=== PATIENT | female | born 1945 | race Caucasian/White ===

== ENCOUNTER 2019-07-05 16:45 | Outpatient (CLI) | payer MEDICARE, SELFPAY ==
[2019-07-05 17:43] LABS: Basophils Percent Auto 0.4 % (0.2-1.2); Eosinophils Absolute Auto 0.3 K/mm3 (0-0.3); Eosinophils Percent Auto 3.1 % (0-4.4); Hematocrit 40.8 % (37.0-47.0); Immature Granulocyte Absolute 0.03 K/mm3 (0.00-0.031); Immature Granulocyte Percent A 0.3 % (0-0.5); Lymphocytes Absolute Auto 2.66 K/mm3 (0.9-3.2); Lymphocytes Percent Auto 27.6 % (18.3-44.2); Mean Corpuscular HGB Conc 34.3 g/dl (32-36); Mean Corpuscular Hemoglobin 29.7 pg (26-34); Mean Corpuscular Volume 86.4 fl (80-100); Mean Platelet Volume 9.3 fl (7.4-10.4); Monocytes Absolute Auto 0.5 K/mm3 (0.1-0.6); Monocytes Percent Auto 5.5 % (2.6-8.5); Neutrophils Absolute Auto 6.1 K/mm3 (1.3-6.7); Neutrophils Percent Auto 63.1 % (45.5-73.1); Platelet Count Result 289 k/mm3 (150-375); Red Blood Count 4.72 M/mm3 (4.2-5.4); Red Cell Distribution Width 12.9 % (11.5-14.5); White Blood Count 9.6 K/mm3 (4.5-10.0)
[2019-07-05 17:52] LABS: Hemoglobin A1C 6.7 % (<5.7)
[2019-07-05 17:56] LABS: Alanine Aminotransferase 39 U/L (4-35); Albumin Level 4.6 g/dL (3.5-5.1); Alkaline Phosphatase 59 U/L (38-126); Aspartate Amino Transferase 46 U/L (14-36); Bilirubin,Total 0.7 mg/dL (0.2-1.3); Blood Urea Nitrogen 10 mg/dL (7-17); Calcium 9.8 mg/dL (8.4-10.2); Carbon Dioxide 26 mmol/L (22-30); Chloride 97 mmol/L (98-107); Estimated Glomerular Filt Rate > 60; Glucose 128 mg/dL (65-105); Potassium 3.9 mmol/L (3.4-5.0); Sodium 141 mmol/L (137-145)
== END 2019-07-05 16:46 | disposition home or self-care (01) ==
LOC: ANHLAB 16:49
PROVIDERS: PCP Internal Medicine; Visit Provider Internal Medicine
DX: E11.65 Type 2 diabetes mellitus with hyperglycemia (principal)
CPT/HCPCS: 36415; 80053; 83036; 85025

== ENCOUNTER 2019-12-13 14:03 | Outpatient (CLI) | payer MEDICARE, SELFPAY ==
[2019-12-13 15:28] LABS: Basophils Percent Auto 0.3 % (0.2-1.2); Eosinophils Absolute Auto 0.3 K/mm3 (0-0.3); Eosinophils Percent Auto 3.1 % (0-4.4); Hematocrit 39.9 % (37.0-47.0); Hemoglobin 13.6 g/dL (12.0-15.0); Immature Granulocyte Absolute 0.04 K/mm3 (0.00-0.031); Immature Granulocyte Percent A 0.4 % (0-0.5); Lymphocytes Absolute Auto 2.84 K/mm3 (0.9-3.2); Lymphocytes Percent Auto 28.1 % (18.3-44.2); Mean Corpuscular HGB Conc 34.1 g/dl (32-36); Mean Corpuscular Hemoglobin 29.8 pg (26-34); Mean Corpuscular Volume 87.5 fl (80-100); Mean Platelet Volume 9.2 fl (7.4-10.4); Monocytes Absolute Auto 0.6 K/mm3 (0.1-0.6); Neutrophils Absolute Auto 6.3 K/mm3 (1.3-6.7); Neutrophils Percent Auto 62.1 % (45.5-73.1); Platelet Count Result 303 k/mm3 (150-375); Red Blood Count 4.56 M/mm3 (4.2-5.4); Red Cell Distribution Width 12.8 % (11.5-14.5); White Blood Count 10.1 K/mm3 (4.5-10.0)
[2019-12-13 15:34] LABS: Alanine Aminotransferase 59 U/L (4-35); Albumin Level 4.5 g/dL (3.5-5.1); Alkaline Phosphatase 63 U/L (38-126); Anion Gap 12 mmol/L (8-16); Aspartate Amino Transferase 88 U/L (14-36); Bilirubin,Total 0.8 mg/dL (0.2-1.3); Blood Urea Nitrogen 9 mg/dL (7-17); Carbon Dioxide 25 mmol/L (22-30); Chloride 100 mmol/L (98-107); Cholesterol 103 mg/dL (0-200); Estimated Glomerular Filt Rate > 60; Glucose 146 mg/dL (65-105); HDL Direct 29 mg/dL; Potassium 3.9 mmol/L (3.4-5.0); Sodium 137 mmol/L (137-145); Triglycerides 138 mg/dL (<150)
[2019-12-13 15:45] LABS: LDL Cholesterol Direct 54 mg/dL
[2019-12-13 15:47] LABS: Hemoglobin A1C 6.5 % (<5.7)
[2019-12-13 16:05] LABS: Creatinine Urine 210.6 mg/dL
[2019-12-13 16:10] LABS: MALB Creatinine Ratio 13.2 mg/g (0-30); Microalbumin Urine Random 27.9 mg/L (0-16.7)
== END 2019-12-13 14:04 | disposition home or self-care (01) ==
PROVIDERS: PCP Internal Medicine; Visit Provider Internal Medicine
DX: E11.29 Type 2 diabetes mellitus with other diabetic kidney complication (principal); K76.0 Fatty (change of) liver, not elsewhere classified; I10 Essential (primary) hypertension
CPT/HCPCS: 36415; 80053; 80061; 82043; 83036; 84443; 85025

== ENCOUNTER 2020-01-18 12:23 | Outpatient (CLI) | payer MEDICARE, SELFPAY ==
--- NOTE | ~2020-01-18 | US_ITS ---
US abdomen complete EXAMINATION: US Abdomen Complete INDICATION: Fatty liver PROCEDURE: Realtime High Resolution abdomen ultrasound. COMPARISON: No prior studies for comparison FINDINGS: Gallbladder is surgically absent. Common bile duct measures 6 mm. Liver echotexture is increased, consistent with fatty infiltration.. Pancreas within normal limits. Pancreatic tail is obscured by bowel gas. Spleen is unremarkeable. Renal echotexture is within norm al limits bilaterally without hydronephrosis, contour deforming mass or renal stone. Right kidney tiera sures 13.1 cm. Left kidney measures 12.6 cm. Visualized aspects of the aorta and IVC are within normal limits. Portal vein is patent. No sonograph ic Grant's sign indicated by the technologist. IMPRESSION: 1: Hepatic steatosis. Reviewed, dictated and finalized at location B. IMPRESSION: 1: Hepatic steatosis.
== END 2020-01-18 12:24 | disposition home or self-care (01) ==
PROVIDERS: PCP Internal Medicine; Visit Provider Internal Medicine
DX: K76.0 Fatty (change of) liver, not elsewhere classified (principal)
CPT/HCPCS: 76700

== ENCOUNTER 2020-02-19 10:46 | Outpatient (CLI) | payer MEDICARE, SELFPAY ==
--- NOTE | ~2020-02-19 | MM_ITS ---
EXAMINATION: MM screening [facility] BI w malcolm HISTORY: Screening mammogram TECHNIQUE: Craniocaudal and mediolateral oblique 3-D tomosynthesis images were obtained and synthetic 2-D images were generated. CAD analysis was submitted and interpreted. COMPARISON: 01/19/2019, 01/07/2018, 12/04/2015 bilateral digital screening mammogram examinations diagnostic left digital mammogram 01/14/2018 diagnostic right digital mammogram BREAST PARENCHYMAL COMPOSITION: There are scattered areas of fibroglandular density. FINDINGS: There is a biopsy marker on the left; history of prior benign left breast biopsy. There are scattered bilateral benign calcifications. There is no evidence of suspicious mass, calcifi cation, or architectural distortion to suggest malignancy in either breast. There has been no suspici ous interval change. IMPRESSION: 1. No mammographic evidence of malignancy. 2. Recommend routine screening mammography in one year. BI-RADS Category 2: Benign finding(s). Reviewed, dictated and finalized at location A.
--- NOTE | ~2020-02-19 | DEXA_ITS ---
Bone Density Report Name: Melissa Ricci Age: 74 Sex: Female Ethnicity: White Date of : 1945 Indication: postmenopausal; height loss; prior fracture; hysterectomy; Referring Provider: Patt Scales Study: Bone densitometry was performed. Exam Date: February 19, 2020 Accession number: [id number] Bone Density: Region BMD T-score Z-score Classification AP Spine (L1, L4) 1.298 2.4 4.7 Normal Femoral Neck (Left) 0.938 0.8 2.8 Normal Total Hip (Left) 1.017 0.6 2.3 Normal Total Hip Bilateral Avg 1.073 1.1 2.8 Normal Femoral Neck (Right) 0.931 0.7 2.7 Normal Total Hip (Right) 1.128 1.5 3.2 Normal World Health Organization criteria for BMD impression classify patients as: Normal (T-score at or above -1.0), Osteopenia (T-score between -1.0 and -2.5), or Osteoporosis (T-score at or below -2.5). 10-year Fracture Risk: FRAX not reported because: All T-scores for Spine Total, Hip Total, Femoral Neck at or above -1.0 Previous Exams: Region Exam Age BMD T-score BMD Change BMD Change Date g/cm2 vs Baseline vs Previous Total Hip(Left) 02/19/2020 74 1.017 0.6 -0.107(-9.5%)* -0.107(-9.5%)* 04/21/2014 68 1.123 1.5 Total Hip(Right) 02/19/2020 74 1.128 1.5 -0.003(-0.3%) -0.003(-0.3%) 04/21/2014 68 1.131 1.6 *Denotes significance at 95% confidence level, LSC for Total Hip = 0.027 g/cm2 Clinical Information Provided by Patient: Has had a low trauma fracture Has used the following medications: Vitamin D, Calcium Has the following medical conditions: Hysterectomy Patient maximum height was 62 Menopause Age: 45 No regular weight bearing exercise Drinks caffeinated beverages Onset of menses at age 12 Number of children 3 Impression: The patient has normal bone mass. The patient has risk factors, including: previous fracture. The BMD for the Total Hip(Left) decreased, changing by -9.5% since the last DXA exam. Discussion: LOW RISK OF FRACTURE; BONE DENSITY IS WELL ABOVE THE MINIMUM DESIRABLE LEVEL AND ABOVE AVERAGE FOR AGE AND SEX AT ALL SKELETAL SITES TESTED. This person's bone density is above expected limits for age and sex. This is rarely clinically significant, but should be pursued if there are significant musculoskeletal complaints. The patient should follow a healthful lifestyle (good nutrition with adequate calcium and vitamin D, and appropriate weight-bearing exercise). Follow-Up: Consider repeating this study in 3 to 4 years to reassess this patient's status, or sooner
== END 2020-02-19 10:47 | disposition home or self-care (01) ==
LOC: ANHIMG 10:50
PROVIDERS: PCP Internal Medicine; Visit Provider Advanced Practice Midwife
DX: Z12.31 Encounter for screening mammogram for malignant neoplasm of breast (principal); Z13.820 Encounter for screening for osteoporosis; Z78.0 Asymptomatic menopausal state
CPT/HCPCS: 77063; 77067; 77080

== ENCOUNTER 2020-04-11 12:59 | Outpatient (CLI) | payer MEDICARE, SELFPAY ==
[2020-04-11 13:33] LABS: Hemoglobin A1C 7.1 % (<5.7)
[2020-04-11 13:42] LABS: Alanine Aminotransferase 61 U/L (4-35); Albumin Level 3.9 g/dL (3.5-5.1); Alkaline Phosphatase 56 U/L (38-126); Anion Gap 8 mmol/L (8-16); Aspartate Amino Transferase 72 U/L (14-36); Bilirubin,Total 0.8 mg/dL (0.2-1.3); Blood Urea Nitrogen 9 mg/dL (7-17); Calcium 9.4 mg/dL (8.4-10.2); Carbon Dioxide 30 mmol/L (22-30); Chloride 101 mmol/L (98-107); Estimated Glomerular Filt Rate > 60; Glucose 161 mg/dL (65-105); Potassium 4.1 mmol/L (3.4-5.0); Sodium 139 mmol/L (137-145)
[2020-04-11 14:08] LABS: MALB Creatinine Ratio < 8.3 mg/g (0-30); Microalbumin Urine Random < 6.0 mg/L (0-16.7)
== END 2020-04-11 13:00 | disposition home or self-care (01) ==
PROVIDERS: PCP Internal Medicine; Visit Provider Internal Medicine
DX: E11.65 Type 2 diabetes mellitus with hyperglycemia (principal); E79.0 Hyperuricemia without signs of inflammatory arthritis and tophaceous disease; I10 Essential (primary) hypertension
CPT/HCPCS: 36415; 80053; 82043; 83036; 84550

== ENCOUNTER 2020-10-11 15:01 | Outpatient (CLI) | payer MEDICARE, SELFPAY ==
[2020-10-11 15:22] LABS: Basophils Percent Auto 0.5 % (0.2-1.2); Eosinophils Absolute Auto 0.5 K/mm3 (0-0.3); Eosinophils Percent Auto 6.1 % (0-4.4); Hematocrit 39.5 % (37.0-47.0); Hemoglobin 13.1 g/dL (12.0-15.0); Immature Granulocyte Absolute 0.03 K/mm3 (0.00-0.031); Immature Granulocyte Percent A 0.3 % (0-0.5); Lymphocytes Absolute Auto 2.17 K/mm3 (0.9-3.2); Lymphocytes Percent Auto 24.5 % (18.3-44.2); Mean Corpuscular HGB Conc 33.2 g/dl (32-36); Mean Corpuscular Hemoglobin 29.8 pg (26-34); Mean Corpuscular Volume 89.8 fl (80-100); Monocytes Absolute Auto 0.4 K/mm3 (0.1-0.6); Monocytes Percent Auto 4.9 % (2.6-8.5); Neutrophils Absolute Auto 5.7 K/mm3 (1.3-6.7); Neutrophils Percent Auto 63.7 % (45.5-73.1); Platelet Count Result 216 k/mm3 (150-375); White Blood Count 8.9 K/mm3 (4.5-10.0)
[2020-10-11 15:34] LABS: Alanine Aminotransferase 53 U/L (4-35); Albumin Level 4.1 g/dL (3.5-5.1); Alkaline Phosphatase 58 U/L (38-126); Anion Gap 13 mmol/L (8-16); Aspartate Amino Transferase 89 U/L (14-36); Bilirubin,Total 0.7 mg/dL (0.2-1.3); Blood Urea Nitrogen 10 mg/dL (7-17); Calcium 9.5 mg/dL (8.4-10.2); Carbon Dioxide 23 mmol/L (22-30); Chloride 104 mmol/L (98-107); Cholesterol 161 mg/dL (0-200); Estimated Glomerular Filt Rate > 60; Glucose 136 mg/dL (65-105); HDL Direct 34 mg/dL; Hemoglobin A1C 6.6 % (<5.7); Potassium 4.3 mmol/L (3.4-5.0); Sodium 140 mmol/L (137-145); Triglycerides 168 mg/dL (<150)
[2020-10-11 15:45] LABS: LDL Cholesterol Direct 79 mg/dL
[2020-10-11 16:39] LABS: Creatinine Urine 121.7 mg/dL
[2020-10-11 16:54] LABS: Vitamin D 25 Hydroxy 38.4 ng/mL
== END 2020-10-11 15:02 | disposition home or self-care (01) ==
PROVIDERS: PCP Internal Medicine; Visit Provider Internal Medicine
DX: E11.65 Type 2 diabetes mellitus with hyperglycemia (principal); E55.9 Vitamin D deficiency, unspecified; E78.2 Mixed hyperlipidemia; F31.4 Bipolar disorder, current episode depressed, severe, without psychotic features; I10 Essential (primary) hypertension
CPT/HCPCS: 36415; 80053; 80061; 82043; 82306; 83036; 84443; 85025

== ENCOUNTER 2020-11-23 13:59 | Outpatient (CLI) | payer MEDICARE, SELFPAY | END 2020-11-23 14:00 | disposition home or self-care (01) | LOC: ANHAUDIO 14:01 | PROVIDERS: PCP Internal Medicine; Visit Provider Otolaryngology | DX: H61.23 Impacted cerumen, bilateral (principal); H90.3 Sensorineural hearing loss, bilateral | CPT/HCPCS: 92557; 92567 ==

== ENCOUNTER 2021-02-19 14:54 | Outpatient (CLI) | payer MEDICARE, SELFPAY ==
--- NOTE | ~2021-02-19 | MM_ITS ---
EXAMINATION: MM screening [facility] BI w malcolm HISTORY: Screening mammogram TECHNIQUE: Craniocaudal and mediolateral oblique 3-D tomosynthesis images were obtained and synthetic 2-D images were generated. CAD analysis was submitted and interpreted. COMPARISON: 02/19/2020 bilateral digital screening mammogram 01/29/2019 diagnostic left digital mammogram 01/19/2019 bilateral digital screening mammogram BREAST PARENCHYMAL COMPOSITION: There are scattered areas of fibroglandular density. FINDINGS: There are scattered bilateral benign calcifications. There is no evidence of suspicious mas s, calcification, or architectural distortion to suggest malignancy in either breast. There has been no suspicious interval change. IMPRESSION: 1. No mammographic evidence of malignancy. 2. Recommend routine screening mammography in one year. BI-RADS Category 2: Benign finding(s). Reviewed, dictated and finalized at location A.
== END 2021-02-19 14:55 | disposition home or self-care (01) ==
PROVIDERS: PCP Internal Medicine; Visit Provider Internal Medicine
DX: Z12.31 Encounter for screening mammogram for malignant neoplasm of breast (principal)
CPT/HCPCS: 77063; 77067

== ENCOUNTER 2021-04-12 14:02 | Outpatient (CLI) | payer MEDICARE, SELFPAY ==
[2021-04-12 14:51] LABS: Alanine Aminotransferase 53 U/L (4-35); Albumin Level 4.3 g/dL (3.5-5.1); Alkaline Phosphatase 60 U/L (38-126); Anion Gap 12 mmol/L (8-16); Aspartate Amino Transferase 67 U/L (14-36); Bilirubin,Total 0.7 mg/dL (0.2-1.3); Blood Urea Nitrogen 11 mg/dL (7-17); Calcium 9.5 mg/dL (8.4-10.2); Carbon Dioxide 24 mmol/L (22-30); Chloride 100 mmol/L (98-107); Estimated Glomerular Filt Rate > 60; Glucose 166 mg/dL (65-110); Potassium 4.1 mmol/L (3.4-5.0); Sodium 136 mmol/L (137-145)
[2021-04-12 16:34] LABS: Hemoglobin A1C 6.9 % (<5.7)
[2021-04-12 16:48] LABS: Creatinine Urine 256.6 mg/dL
[2021-04-12 16:52] LABS: Microalbumin Urine Random 33.3 mg/L (0-16.7)
== END 2021-04-12 14:03 | disposition home or self-care (01) ==
LOC: ANHLAB 14:04
PROVIDERS: PCP Internal Medicine; Visit Provider Internal Medicine
DX: E11.65 Type 2 diabetes mellitus with hyperglycemia (principal); K76.0 Fatty (change of) liver, not elsewhere classified
CPT/HCPCS: 36415; 80053; 82043; 83036

== ENCOUNTER 2021-10-26 15:32 | Outpatient (CLI) | payer MEDICARE, SELFPAY ==
[2021-10-26 16:32] LABS: Alanine Aminotransferase 49 U/L (6-35); Albumin Level 4.2 g/dL (3.5-5.1); Alkaline Phosphatase 70 U/L (38-126); Anion Gap 10 mmol/L (8-16); Aspartate Amino Transferase 59 U/L (14-36); Bilirubin,Total 0.9 mg/dL (0.2-1.3); Blood Urea Nitrogen 10 mg/dL (7-17); Calcium 8.9 mg/dL (8.4-10.2); Carbon Dioxide 24 mmol/L (22-30); Chloride 104 mmol/L (98-107); Cholesterol 88 mg/dL (0-200); Estimated Glomerular Filt Rate > 60; Glucose 234 mg/dL (65-110); HDL Direct 31 mg/dL; Potassium 3.8 mmol/L (3.4-5.0); Sodium 138 mmol/L (137-145); Triglycerides 153 mg/dL (<150)
[2021-10-26 16:42] LABS: LDL Cholesterol Direct 34 mg/dL
[2021-10-26 16:48] LABS: Creatinine Urine 169.6 mg/dL; MALB Creatinine Ratio 27.1 mg/g (0-30)
[2021-10-26 17:07] LABS: Free T4 Free Thyroxine 1.22 ng/mL (0.78-2.19)
== END 2021-10-26 15:33 | disposition home or self-care (01) ==
PROVIDERS: PCP Internal Medicine; Visit Provider Nurse Practitioner Family
DX: E11.65 Type 2 diabetes mellitus with hyperglycemia (principal); I10 Essential (primary) hypertension; E55.9 Vitamin D deficiency, unspecified; R80.1 Persistent proteinuria, unspecified
CPT/HCPCS: 36415; 80053; 80061; 82043; 82607; 84439; 84443

== ENCOUNTER 2021-11-03 12:51 | Outpatient (CLI) | payer MEDICARE, SELFPAY ==
[2021-11-03 13:15] LABS: Basophils Percent Auto 0.4 % (0.2-1.2); Eosinophils Absolute Auto 0.5 K/mm3 (0-0.3); Eosinophils Percent Auto 5.1 % (0-4.4); Hematocrit 39.9 % (37.0-47.0); Hemoglobin 13.4 g/dL (12.0-15.0); Immature Granulocyte Absolute 0.03 K/mm3 (0.00-0.031); Immature Granulocyte Percent A 0.3 % (0-0.5); Lymphocytes Absolute Auto 2.75 K/mm3 (0.9-3.2); Lymphocytes Percent Auto 28.9 % (18.3-44.2); Mean Corpuscular HGB Conc 33.6 g/dl (32-36); Mean Corpuscular Volume 89.3 fl (80-100); Mean Platelet Volume 9.3 fl (7.4-10.4); Monocytes Absolute Auto 0.7 K/mm3 (0.1-0.6); Monocytes Percent Auto 6.9 % (2.6-8.5); Neutrophils Absolute Auto 5.6 K/mm3 (1.3-6.7); Neutrophils Percent Auto 58.4 % (45.5-73.1); Platelet Count Result 234 k/mm3 (150-375); Red Blood Count 4.47 M/mm3 (4.2-5.4); Red Cell Distribution Width 12.9 % (11.5-14.5); White Blood Count 9.5 K/mm3 (4.5-10.0)
== END 2021-11-03 12:52 | disposition home or self-care (01) ==
PROVIDERS: PCP Internal Medicine; Visit Provider Nurse Practitioner
DX: E53.8 Deficiency of other specified B group vitamins (principal)
CPT/HCPCS: 36415; 85025

== ENCOUNTER 2022-03-22 11:02 | Outpatient (CLI) | payer MEDICARE, SELFPAY ==
--- NOTE | ~2022-03-22 | MM_ITS ---
EXAMINATION: MM screening [facility] BI w malcolm HISTORY: Screening TECHNIQUE: Craniocaudal and mediolateral oblique 3-D tomosynthesis images were obtained and synthetic 2-D images were generated. CAD analysis was submitted and interpreted. COMPARISON: Comparison to multiple prior studies sequentially, with oldest reviewed study dated 09/2017. BREAST PARENCHYMAL COMPOSITION: Breast composed of scattered areas of fibroglandular density FINDINGS: There are benign bilateral breast calcifications. There is no evidence of suspicious mass, calcification, or architectural distortion to suggest malignancy in either breast. There has been no suspicious interval change. IMPRESSION: 1. No mammographic evidence of malignancy. 2. Recommend routine screening mammography in one year. BI-RADS Category 2: Benign finding(s). Reviewed, dictated and finalized at location A. 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
== END 2022-03-22 11:03 | disposition home or self-care (01) ==
PROVIDERS: PCP Internal Medicine; Visit Provider Advanced Practice Midwife
DX: Z12.31 Encounter for screening mammogram for malignant neoplasm of breast (principal)
CPT/HCPCS: 77063; 77067

== ENCOUNTER 2022-11-18 14:29 | Outpatient (CLI) | payer MEDICARE, SELFPAY ==
[2022-11-18 16:26] LABS: Creatinine Urine 111.4 mg/dL
[2022-11-18 16:31] LABS: MALB Creatinine Ratio 20.1 mg/g (0-30); Microalbumin Urine Random 22.4 mg/L (0-16.7)
[2022-11-18 16:50] LABS: Free T4 Free Thyroxine 1.39 ng/mL (0.78-2.19); Vitamin D 25 Hydroxy 79.1 ng/mL
[2022-11-18 18:16] LABS: Alanine Aminotransferase 55 U/L (6-35); Albumin Level 4.5 g/dL (3.5-5.1); Alkaline Phosphatase 58 U/L (38-126); Anion Gap 12 mmol/L (8-16); Aspartate Amino Transferase 65 U/L (14-36); Blood Urea Nitrogen 9 mg/dL (7-17); Calcium 9.2 mg/dL (8.4-10.2); Carbon Dioxide 24 mmol/L (22-30); Chloride 103 mmol/L (98-107); Estimated Glomerular Filt Rate > 60; Glucose 187 mg/dL (65-110); HDL Direct 30 mg/dL; Sodium 139 mmol/L (137-145); Triglycerides 142 mg/dL (<150)
[2022-11-18 18:27] LABS: LDL Cholesterol Direct 37 mg/dL
[2022-11-18 18:35] LABS: Cholesterol 91 mg/dL (0-200)
== END 2022-11-18 14:30 | disposition home or self-care (01) ==
PROVIDERS: PCP Family Medicine; Visit Provider Nurse Practitioner Family
DX: E11.9 Type 2 diabetes mellitus without complications (principal); E53.8 Deficiency of other specified B group vitamins; E55.9 Vitamin D deficiency, unspecified; E78.5 Hyperlipidemia, unspecified; G47.33 Obstructive sleep apnea (adult) (pediatric)
CPT/HCPCS: 36415; 80053; 80061; 82043; 82306; 82607; 84439; 84443

== ENCOUNTER 2023-02-24 08:03 | Outpatient (CLI) | payer MEDICARE, SELFPAY ==
--- NOTE | 2023-02-24 10:46 | WPDPFTINT ---
PFT Procedure Performed PFT Procedure Performed Spirometry with Pre/Post Bronchodilator Plethysmography (Lung Vol) Diffusing Cap (DLCO) Flow Vol Loop PFT Interpretation Lung volumes were measured with the body plethysmography method. The diminished expiratory reserve volume is related to obesity. The remaining lung volumes are unremarkable. Spirometry showed diminished expiratory flow rates and a normal FEV1 to FVC ratio 71%. Following administration of a bronchodilator there was significant increase in the FEV1. Lung diffusion capacity is within the normal range at 81% predicted. The flow-volume loop is consistent with obstructive airway disease. In comparison to previous study done in 2017 the post bronchodilator FEV1 is lower by approximately 0.3 L and the FVC is also lower by approximately 0.4 L. lung diffusion capacity is essentially unchanged. Impression: Nonspecific pattern. Significant response to bronchodilators may be due to underlying obstructive airway disease. Clinical correlation advised.
== END 2023-02-24 08:04 | disposition home or self-care (01) ==
LOC: ANHPFT 08:04
PROVIDERS: PCP Nurse Practitioner; Visit Provider Physician Assistant
DX: J44.9 Chronic obstructive pulmonary disease, unspecified (principal)
CPT/HCPCS: 94060; 94726; 94729

== ENCOUNTER 2023-06-12 15:46 | Outpatient (CLI) | payer MEDICARE, SELFPAY ==
[2023-06-12 16:06] LABS: Hematocrit 43.8 % (37.0-47.0); Hemoglobin 14.6 g/dL (12.0-15.0); Mean Corpuscular HGB Conc 33.3 g/dl (32-36); Mean Corpuscular Hemoglobin 29.9 pg (26-34); Mean Corpuscular Volume 89.6 fl (80-100); Mean Platelet Volume 9.9 fl (7.4-10.4); Platelet Count Result 272 k/mm3 (150-375); Red Blood Count 4.89 M/mm3 (4.2-5.4); Red Cell Distribution Width 13.1 % (11.5-14.5); White Blood Count 9.4 K/mm3 (4.5-10.0)
[2023-06-12 16:23] LABS: Alanine Aminotransferase 42 U/L (6-35); Albumin Level 4.4 g/dL (3.5-5.1); Alkaline Phosphatase 64 U/L (38-126); Anion Gap 13 mmol/L (8-16); Aspartate Amino Transferase 46 U/L (14-36); Bilirubin,Total 0.9 mg/dL (0.2-1.3); Blood Urea Nitrogen 15 mg/dL (7-17); Calcium 9.9 mg/dL (8.4-10.2); Carbon Dioxide 22 mmol/L (22-30); Chloride 105 mmol/L (98-107); Cholesterol 101 mg/dL (0-200); Estimated Glomerular Filt Rate > 60; Glucose 179 mg/dL (65-110); HDL Direct 32 mg/dL; Potassium 4.4 mmol/L (3.4-5.0); Sodium 140 mmol/L (137-145); Triglycerides 210 mg/dL (<150)
[2023-06-12 16:29] LABS: LDL Cholesterol Direct 47 mg/dL
== END 2023-06-12 15:47 | disposition home or self-care (01) ==
LOC: ANHLAB 15:48
PROVIDERS: PCP Family Medicine; Visit Provider Nurse Practitioner
DX: E78.5 Hyperlipidemia, unspecified (principal); E11.29 Type 2 diabetes mellitus with other diabetic kidney complication; E53.8 Deficiency of other specified B group vitamins
CPT/HCPCS: 36415; 80053; 80061; 85027

== ENCOUNTER 2023-07-23 15:26 | Outpatient (CLI) | payer MEDICARE, SELFPAY ==
--- NOTE | ~2023-07-23 | MM_ITS ---
EXAMINATION: MM screening [facility] BI w malcolm HISTORY: Screening TECHNIQUE: Craniocaudal and mediolateral oblique 3-D tomosynthesis images were obtained and synthetic 2-D images were generated. CAD analysis was submitted and interpreted. COMPARISON: Comparison to multiple prior studies sequentially, with oldest reviewed study dated 01/19. BREAST PARENCHYMAL COMPOSITION: Not dense: There are scattered areas of fibroglandular density. FINDINGS: There is no evidence of suspicious mass, calcification, or architectural distortion to sugg est malignancy in either breast. There has been no suspicious interval change. IMPRESSION: 1. No mammographic evidence of malignancy. 2. Recommend routine screening mammography in one year. BI-RADS Category 1: Negative Reviewed, dictated and finalized at location A.
== END 2023-07-23 15:27 | disposition home or self-care (01) ==
LOC: ANHIMG 15:29
PROVIDERS: PCP Family Medicine; Visit Provider Family Medicine
DX: Z12.31 Encounter for screening mammogram for malignant neoplasm of breast (principal)
CPT/HCPCS: 77063; 77067

== ENCOUNTER 2023-12-17 14:33 | Outpatient (CLI) | payer MEDICARE, SELFPAY ==
[2023-12-17 15:36] LABS: Alanine Aminotransferase 42 U/L (6-35); Albumin Level 4.5 g/dL (3.5-5.1); Alkaline Phosphatase 57 U/L (38-126); Anion Gap 17 mmol/L (4-12); Aspartate Amino Transferase 64 U/L (14-36); Bilirubin,Total 1.1 mg/dL (0.2-1.3); Blood Urea Nitrogen 10 mg/dL (7-17); Calcium 9.4 mg/dL (8.4-10.2); Carbon Dioxide 21 mmol/L (22-30); Chloride 100 mmol/L (98-107); Cholesterol 86 mg/dL (0-200); Estimated Glomerular Filt Rate > 60; Glucose 152 mg/dL (65-110); HDL Direct 34 mg/dL; Potassium 3.4 mmol/L (3.4-5.0); Sodium 138 mmol/L (137-145); Triglycerides 175 mg/dL (<150)
[2023-12-17 15:53] LABS: Microalbumin Urine Random 7.5 mg/L (0-16.7)
[2023-12-17 15:53] LABS: LDL Cholesterol Direct < 30 mg/dL
[2023-12-17 15:54] LABS: Creatinine Urine 121.7 mg/dL; MALB Creatinine Ratio 6.2 mg/g (0-30)
[2023-12-17 16:02] LABS: Vitamin D 25 Hydroxy 52.8 ng/mL
== END 2023-12-17 14:34 | disposition home or self-care (01) ==
LOC: ANHLAB 14:44
PROVIDERS: Nurse Practitioner; PCP Family Medicine; Visit Provider Internal Medicine Endocrinology, Diabetes & Metabolism
DX: E55.9 Vitamin D deficiency, unspecified (principal); E78.5 Hyperlipidemia, unspecified; E11.9 Type 2 diabetes mellitus without complications; Z79.899 Other long term (current) drug therapy
CPT/HCPCS: 36415; 80053; 80061; 82043; 82306; 82607; 84443

== ENCOUNTER 2024-07-02 15:51 | Outpatient (CLI) | payer MEDICARE, SELFPAY | END 2024-07-02 15:52 | disposition home or self-care (01) | LOC: GOSHIMG 15:52 | PROVIDERS: PCP Family Medicine; Visit Provider Family Medicine | DX: K76.0 Fatty (change of) liver, not elsewhere classified (principal) | CPT/HCPCS: 76705 ==

== ENCOUNTER 2024-07-26 14:02 | Outpatient (CLI) | payer MEDICARE, SELFPAY ==
--- NOTE | ~2024-07-26 | MM_ITS ---
EXAMINATION: MM screening sylvia BI w malcolm HISTORY: Screening TECHNIQUE: Craniocaudal and mediolateral oblique 3-D tomosynthesis images were obtained and synthetic 2-D images were generated. CAD analysis was submitted and interpreted. COMPARISON: 07/23/2023 and dating back to 02/19/2020 BREAST PARENCHYMAL COMPOSITION: There are scattered areas of fibroglandular density. FINDINGS: Punctate and bulky calcifications are detected bilaterally, stable and benign in appearance . Microclip within the upper outer left breast consistent with patient's history. Stable parenchymal pattern without suspicious microcalcifications, architectural distortion, discrete masses or significant asymmetry. IMPRESSION: 1. No mammographic evidence of malignancy. 2. Recommend routine screening mammography in one year. BI-RADS Category 2: Benign finding(s). Reviewed, dictated and finalized at location A.
--- OUTSIDE RECORDS SUMMARY | 2024-07-26 16:11 | XMS_ITS ---
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 Name Role Phone Marcelo Burnett MD Primary Care Provider Nicolette Rucker Unavailable [phone] Allergies No Known Allergies REASON FOR VISIT Follow-up for medication management Medications Medication SIG (Take, Route, Frequency, Duration) Notes Start Date End Date Status CHOLECALCIFEROL (VIT D3) 1,000 UNIT-VITAMIN K2 (MK4) 100 MCG TABLET *Reorder from [employer] for eRx and Interaction Alerts* 07/30/2023 Active hydroCHLOROthiazide 12.5 MG Oral 07/30/2023 Active Temazepam 30 MG 1 capsule at bedtime Oral Once a day for 90 days 05/21/2024 Active LORazepam 1 MG 1 tablet Oral Once a day for 90 days 05/21/2024 Active risperiDONE 1 MG 1 tablet Orally Once a day for 90 days Active metFORMIN HCl ER 500 MG Oral 07/30/2023 Active Multivitamin Adults Oral 07/30/2023 Active Sertraline HCl 50 MG 1 tablet Oral Once a day for 90 days Active Jardiance 10 MG Oral 07/30/2023 Act daniel Rosuvastatin Calcium 40 MG Oral 07/30/2023 Active Allopurinol 100 MG Oral 07/30/2023 Active Valsartan 80 MG Oral 07/30/2023 Act daniel Ozempic (2 MG/DOSE) 8 MG/3ML Subcutaneous *Reorder from [employer] for eRx and Interaction Alerts* 07/30/2023 Active Vitamin B 12 Active Social History Tobacco Use: Social History Observation Description Date Details (start date - stop date) Never Smoker NA - NA Sex Assigned At : Social History Observation Description Sex Assigned At Female Tobacco Control (Standard) Question Answer Notes Tobacco use: Nonsmoker Section Notes: Social History Substance UseDo you or have you ever smoked tobacco?: Never smokerHow much tobacco do you smoke?: NoneDo you or have you ever used any other forms of tobacco or nicotine?: NoDo you or have you ever used e-cigarettes or vape?: Never used electronic cigarettesWhat was the date of your most recent tobacco screening?: 07/30/2023Has tobacco cessation counseling been provided?: NoWhat is your level of alcohol consumption?: NoneDo you use any illicit or recreational drugs?: NoHave you used IV drugs?: NoWhat is your level of caffeine consumption?: ModerateEducation and OccupationWhat is the highest grade or level of school you have completed or the highest degree you have received?: High school graduateAre you currently in school?: NoAre you currently employed?: NoMarriage and SexualityWhat is your relationship status?: MarriedAre you sexually active?: YesDo you use protection during sex?: NoHow many children do you have?: 1Home and EnvironmentAre there any guns present in your home?: NoAdvance DirectiveDo you have an advance directive?: NoDo you have a medical power of assistant city attorney?: No Vital Signs Blood pressure systolic 136 mm Hg 05/21/19 25 Blood pressure diastolic 80 mm Hg 025 Heart Rate 96 /min 05/21/2024 Height 62.00 in 05/21/2024 Weight 222 lbs 05/21/2024 BMI 40.6 kg/m2 05/21/2024 Height-cm 157.48 cm 05/21/2024 Weight-kg 100.7 kg 05/21/2024 Encounters Encounter Location Date Provider Diagnosis [facility] [address] [address] 05/21/2024 Nicolette Graves Bipolar II disorder F31.81 and Chronic insomnia F51.04 Assessments Encounter Date Diagnosis (ICD Code) Assessment Notes Treatment Notes Treatment Clinical Notes Section Notes 05/21/2024 Bipolar II disorder (ICD-10 - F31.81) Bipolar disorder - Patient reports feeling even, no depressive or manic episodes Plan: - Continue sertraline 50 mg daily for mood stabilization Risperidone-alondra brooke tremor - Patient reports shakiness in the arm on 2 mg of risperidone Plan: - Decrease risperidone dose to 1 mg daily - Monitor for improvement in tremor Anxiety, controlled - no significant concerns Plan: - Continue lorazepam 1 mg once a day as needed Insomnia, managed - Patient reports satisfactory sleep with temazepam Plan: - Continue temazepam as prescribed for sleep Follow-up appointment in three months Call if concerns arise or issues with medication changes 05/21/2024 Chronic insomnia (ICD-10 - F51.04) Bipolar disorder - Patient reports feeling even, no depressive or manic episodes Plan: - Continue sertraline 50 mg daily for mood stabilization Risperidone-alondra brooke tremor - Patient reports shakiness in the arm on 2 mg of risperidone Plan: - Decrease risperidone dose to 1 mg daily - Monitor for improvement in tremor Anxiety, controlled - no significant concerns Plan: - Continue lorazepam 1 mg once a day as needed Insomnia, managed - Patient reports satisfactory sleep with temazepam Plan: - Continue temazepam as prescribed for sleep Follow-up appointment in three months Call if concerns arise or issues with medication changes Plan Of Treatment Medication Medication Name Sig Start Date Stop Date Notes Temazepam 30 MG 1 capsule at bedtime Oral Once a day for 90 days 05/21/2024 LORazepam 1 MG 1 tablet Oral Once a day for 90 days 2024 risperiDONE 1 MG 1 tablet Orally Once a day for 90 days Sertraline HCl 50 MG 1 tablet Oral Once a day for 90 days Next Appt Details Follow Up: 3 Months, Reason: Provider Name:Nicolette caicedo, 08/18/2024 02:00:00 PM, [address] [facility] [address] [facility] [address], [address], Progress Notes * PATRICK STORM LDOB: 7 (78 yo F)Acc No.[id number]:05/21/2024 Patient: PATRICK BLANCAS Rohan Provider: Seun Graves :1945 A ge:78 Y S ex:Female Date:05/21/2024 Address:[address] [place] [address], [facility] Pcp:Marcelo Burnett MD Subjective: * Chief Complaints: * F ollow-up for medication management * HPI: H istory of Presenting Problem: This note is transcribed using speech recognition software. It is a reflection of a visit with the patient. It might have some inaccuracy, including medication names and transcribing errors, though efforts have been made to correct them. 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 Reports feeling great with mood, describing it as not depressed or manic, just very even. Denies thoughts of self-harm. Experiencing some shakiness in arm, attributed to risperidone 2 mg dose. Has not taken risperidone for past 3 days due to this side effect. No issues with anxiety reported. Sleeping well. Denies falls or memory concerns. No hallucinations reported. Reports significant weight loss, 16 more pounds recently. Attributes to Ozempic, stating approximately 70 pounds total loss since starting medication. Notes decreased food cravings at night and reduced appetite, often unable to finish meals. 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 prozac x1 wk-caused SI, only time ever had SI. wellbutrin. D epression Screening: INESSA-7 (2018 Edition) F eeling nervous, anxious, or on edge?Not at all, N ot being able to stop or control worrying N ot at all, W orrying too much about different things N ot at all, T rouble relaxing N ot at all, B eing so restless that it is hard to sit still N ot at all, B ecoming easily annoyed or irritable N ot at all, F eeling afraid as if something awful might happen N ot at all, T otal INESSA-7 Score 0 , I nterpretation of Total ( 0 to 4) No Anxiety. D epression screening: PHQ-9 L ittle interest or pleasure in doing things N ot at all, F eeling down, depressed, or hopeless N ot at all, T rouble falling or staying asleep, or sleeping too much N ot at all, F eeling tired or having little energy S everal days, P oor appetite or overeating N ot at all, F eeling bad about yourself or that you are a failure, or have let yourself or your family down N ot at all, T rouble concentrating on things, such as reading the newspaper or watching television N ot at all, M oving or speaking so slowly that other people could have noticed; or the opposite, being so fidgety or restless that you have been moving around a lot more than usual N ot at all, T houghts that you would be better off or of hurting yourself in some way N ot at all, T otal Score 1 , Interpretation M inimal Depression. I ntervention D epression Screening Findings N egative, S uicide Risk Assessment Performed . * ROS: G eneral / Constitutional: Patient denies f atigue, headache, l ightheadedness.? C ardiovascular: Patient denies c hest pain, dizziness, palpitations. ? G astrointestinal: Patient denies n ausea, vomiting, change in bowel habits.? N eurologic: Patient denies c onfusion, tic, tremor. P sychiatric: Patient denies s uicidal thoughts, auditory / visual hallucinations, delusions, psychosis, involuntary movements. S ee HPIPatient not eligible due to active diagnosis of hypertension: G 9744. * Medical History: * Surgical History: H ysterectomy (47549) Cataract surgery (39448) Removal of gallbladder (04498) Colectomy (65031) eye surgery 10/06/2023 * Hospitalization/Major Diagno stic Procedure: D enies Past Hospitalization * Family History: U nspecified Relation: Bipolar disorder, Notes: niece and nephew . * Social History: T obacco Use: T obacco Control (Standard) T obacco use: N onsmoker. S ocial History Substance UseDo you or have you ever smoked tobacco?: Never smokerHow much tobacco do you smoke?: NoneDo you or have you ever used any other forms of tobacco or nicotine?: NoDo you or have you ever used e-cigarettes or vape?: Never used electronic cigarettesWhat was the date of your most recent tobacco screening?: 07/30/2023Has tobacco cessation counseling been provided?: NoWhat is your level of alcohol consumption?: NoneDo you use any illicit or recreational drugs?: NoHave you used IV drugs?: NoWhat is your level of caffeine consumption?: ModerateEducation and OccupationWhat is the highest grade or level of school you have completed or the highest degree you have received?: High school graduateAre you currently in school?: NoAre you currently employed?: NoMarriage and SexualityWhat is your relationship status?: MarriedAre you sexually active?: YesDo you use protection during sex?: NoHow many children do you have?: 1Home and EnvironmentAre there any guns present in your home?: NoAdvance DirectiveDo you have an advance directive?: NoDo you have a medical power of assistant city attorney?: No. * Medications: T akingLORazepam 1 MG Tablet 1 tablet Oral Once a day Temazepam 30 MG Capsule 1 capsule at bedtime Oral Once a day risperiDONE 1 MG Tablet 1 tablet Orally Once a day Vitamin B 12 Ozempic (2 MG/DOSE) 8 MG/3ML Solution Pen-injector Subcutaneous , Notes to Pharmacist: *Reorder from [facility] for eRx and Interaction Alerts*Valsartan 80 MG Tablet Oral Allopurinol 100 MG Tablet Oral Jardiance 10 MG Tablet Oral Multivitamin Adults Tablet Oral metFORMIN HCl ER 500 MG Tablet Extended Release 24 Hour Oral Rosuvastatin Calcium 40 MG Tablet Oral hydroCHLOROthiazide 12.5 MG Tablet Oral CHOLECALCIFEROL (VIT D3) 1,000 UNIT-VITAMIN K2 (MK4) 100 MCG TABLET , Notes to Pharmacist: *Reorder from [facility] for eRx and Interaction Alerts*Sertraline HCl 50 MG Tablet 1 tablet Oral Once a day Medication List reviewed and reconciled with the patientTaking LORazepam 1 MG Tablet 1 tablet Oral Once a day Taking Temazepam 30 MG Capsule 1 capsule at bedtime Oral Once a day Taking risperiDONE 1 MG Tablet 1 tablet Orally Once a day Taking Vitamin B 12 Taking Ozempic (2 MG/DOSE) 8 MG/3ML Solution Pen-injector Subcutaneous , Notes to Pharmacist: *Reorder from [facility] for eRx and Interaction Alerts*Taking Valsartan 80 MG Tablet Oral Taking Allopurinol 100 MG Tablet Oral Taking Jardiance 10 MG Tablet Oral Taking Multivitamin Adults Tablet Oral Taking metFORMIN HCl ER 500 MG Tablet Extended Release 24 Hour Oral Taking Rosuvastatin Calcium 40 MG Tablet Oral Taking hydroCHLOROthiazide 12.5 MG Tablet Oral Taking CHOLECALCIFEROL (VIT D3) 1,000 UNIT-VITAMIN K2 (MK4) 100 MCG TABLET , Notes to Pharmacist: *Reorder from [employer] for eRx and Interaction Alerts*Taking Sertraline HCl 50 MG Tablet 1 tablet Oral Once a day Medication List reviewed and reconciled with the patient * Allergies: N .K.D.A.no[Allergies Verified] Objective: * Vitals: B P:136/80mm Hg, HR:96/min, Wt:222lbs, Wt-k.7 kg, Ht: 62.00 in, Ht-cm: 157.48 cm, BMI:40.6Index, Body Surface Area: 2.1. * Examination: P sychiatry: Appearance: a lert, groomed, a ppears well rested. In no acute distress. Abnormal body movements: n one noted. Affect / mood: f ull range, appropriate. Attention: n ormal in conversation. Attitude: c ooperative, open-minded with collaborative approach. Homicidal ideation: n one. Suicidal ideation: n one. Memory status: n o impairment noted. Degree of awareness of surroundings: w ithin normal limits.? Delusions: n o. Hallucinations: n o. Insight: g ood. Intellectual functioning: n o impairment noted. Judgement: g ood. Orientation: a wake, alert and oriented x 3. Psychomotor activity: w ithin normal range. Speech / language: c lear and coherent, appropriate pitch/modulation, normal rate, volume, and articulation (RVR), proper grammar used. Thought content: a ppropriate. Thought process: i ntact. Assessment: * Assessment: 1. B ipolar II disorder - F31.81 (Primary) 2 . C hronic insomnia - F51.04? Bipolar disorder - Patient reports feeling even, no depressive or manic episodes Plan: - Continue sertraline 50 mg daily for mood stabilization Risperidone-induced tremor - Patient reports shakiness in the arm on 2 mg of risperidone Plan: - Decrease risperidone dose to 1 mg daily - Monitor for improvement in tremor Anxiety, controlled - no significant concerns Plan: - Continue lorazepam 1 mg once a day as needed Insomnia, managed - Patient reports satisfactory sleep with temazepam Plan: - Continue temazepam as prescribed for sleep Follow-up appointment in three months Call if concerns arise or issues with medication changes Plan: * Treatment: 2. C hronic insomnia Refill Temazepam Capsule, 30 MG, 1 capsule at bedtime, Oral, Once a day, 90 days, 90 Capsule, Refills 0. * Procedure Codes: 9 6127 BEHAV ASSMT W/SCORE & DOCD/STAND [id number] VISIT COMPLEXITY INHERENT TO ONGOING CARE RELATED TO A PATIENT'S SINGLE, SERIOUS CONDITION OR A COMPLEX [id number] Pt not del d/t act dig htn * Preventive Medicine: Counseling: P atient Education: G eneral Education A ssessment and plan reviewed with patient.Educated on diagnoses and recommended treatment options.Educated on risks/benefits of medications, including reason for medications and potential side effects.Alternatives and expected course without treatment reviewed.Education given regarding compliance with medication and expectations regarding adherence to or inconsistent usage of medication.Educated that it can take weeks to see full therapeutic benefits of psychotropic medications and encouraged to trust the process.Educated on good sleep hygiene and importance of adequate sleep on both mental and overall health and well-being.Patient asked appropriate questions, verbalized understanding, and agreed to the recommended treatment and to continue to be followed.Encouraged to reach out if problems, questions, or concerns arise.Educated on suicide hotlines, resources, and safety should suicidal thoughts occur.. * Follow Up: 3 Months * Billing Information: * Visit Code: 88032 OFFICE OUTPATIENT VISIT 25 MINUTES DETAILED HISTORY AND EXAM/MODERATE MEDICAL DECISION MAKING. * Procedure Codes: 99936 BEHAV ASSMT W/SCORE & DOCD/STAND INSTRUMENT. G2211 VISIT COMPLEXITY INHERENT TO ONGOING CARE RELATED TO A PATIENT'S SINGLE, SERIOUS CONDITION OR A COMPLEX CONDITION. G9744 Pt not del d/t act dig htn. * R OPERATOR Sign off status: Completed true * Provider: Seun Graves Date: 0 05/21/2024 Generated for Shantell irwin/Vic/[facility] on: 0 07/26/2024 04:11 PM CDT History and Physical Notes * HPI (History of Present Illness) Category Sub-Category Detail Notes Category Not es Depression screening PHQ-9 Little inte rest or pleasure in doing things: Not at all Feeling down, depressed, or hopeless: No t at all Trouble falling or staying asleep, or sl eeping too much: Not at all Feeling tired or having little energy: S everal days Poor appetite or overeating: Not at all Feeling bad about yourself o r that you are a failure, or have let yourself or your family down: Not at all Trouble concentrating on thi ngs, such as reading the newspaper or watching television: Not at all Moving or speaking so slowly that other people could have noticed; or the opposite, being so fidgety or restless that you have been moving around a lot more than usual: Not at all Thoughts that you would be b mark off or of hurting yourself in some way: Not at all Total Score: 1 Interpretation: Minimal Depression Intervention Depression Screening Findings: N egative Suicide Risk Assessment Performed: ____ Depression Screening INESSA-7 (2018 Edition) Feelin g nervous, anxious, or on edge: Not at all Not being able to stop or control worryi ng: Not at all Worrying too much about different things : Not at all Trouble relaxing: Not at all Being so restless that it is hard to sit still: Not at all Becoming easily annoyed or irritable: No t at all Feeling afraid as if something awful uriel ht happen: Not at all Total INESSA-7 Score: 0 Interpretation of Total: (0 to 4) No Anx iety Examination Category Sub-Category Detail Notes Category Not es Psychiatry Appearance: alert, groomed, appears well rested. In no acute distress Attitude: cooperative, open-mi nded with collaborative approach Psychomotor activity: within normal rang e Abnormal body movements: none noted Attention: normal in conversati on Degree of awareness of surroundings: wit hin normal limits Orientation: awake, alert and liya ented x 3 Affect / mood: full range, appropri ate Speech / language: clear and coherent, appropriate pitch/modulation, normal rate, volume, and articulation (RVR), proper grammar used Insight: good Judgement: good Thought process: intact Thought content: appropriate Suicidal ideation: none Homicidal ideation: none Intellectual functioning: no impairment noted Memory status: no impairment noted Delusions: no Hallucinations: no
--- OUTSIDE RECORDS SUMMARY | 2024-07-26 16:12 | XMS_ITS ---
Author Organization [facility] [employer] [facility] Address [address] [facility] [address] [place] [address] Care Team Providers Care Medical Staff Physician Name Role Phone Marcelo Burnett MD Primary Care Provider Nicolette Rucker Unavailable [phone] REASON FOR VISIT Refills Medications Medication SIG (Take, Route, Fr equency, Duration) Notes Start Date End Date Status Sertraline HCl 50 MG 1 tablet Oral Once a day for 90 days Active Social History Sex Assigned At : Social History Observation Description Sex Assigned At Female Encounters Encounter Location Date Provider Diagnosis [facility] [address] [facility] [address] [place] [address] 04/26/2024 Nicolette Graves Bipolar II disorder F31.81 Assessments Encounter Date Diagnosis (ICD Code) Assessment Notes Treatment Notes Treatment Clinical Notes Section Notes 04/26/2024 Bipolar II disorder (ICD-10 - F31.81) Plan Of Treatment Medication Medication Name Sig Start Date Stop Date Notes Sertraline HCl 50 MG 1 tablet Oral Once a day for 90 days Next Appt Details Provider Name:Nicolette caicedo, 08/18/2024 02:00:00 PM, [address], [facility] [address], [place], [address], Progress Notes * PATRICK STORM LDOB: 7 (78 yo F)Acc No.[id number]:04/26/2024 Patient: PATRICK BLANCAS :1945 A ge:78 Y S ex:Female Address:[address] [place] [address], [place] [address] * Refills Refill Sertraline HCl Tablet, 50 MG, Oral, 90 Tablet, 1 tablet, Once a day, 90 days, Refills=0 Subjective: * Chief Complaints: * R efills * Medical History: * Surgical History: * Hospitalization/Major Diagno stic Procedure: * Medications: Objective: * Vitals: * Physical Examination: Assessment: * Assessment: 1. B ipolar II disorder - F31.81 (Primary) Plan: * Treatment: * Procedure Codes: * true * Date: Generated for Shantell irwin/[facility] on: 0 07/26/2024 04:11 PM CDT
--- OUTSIDE RECORDS SUMMARY | 2024-07-26 16:12 | XMS_ITS | Data Portability ---
Author Organization [facility] [place] Address [address] [place] [address] Care Team Providers Care Cattle Care Worker Name Role Phone ALECIABREA Primary Care Provider [phone] Assessment Encounter Date Assessment Date Assessment LastModified by Organization Details LastModified Time 12/29/2020 12/29/2020 everything seems to be healed ok to use ointment prn, f/u wwe [id number] Not available 12/29/2020 16:24:33 Plan of Treatment Reminders Order Date Submit Date Provider Last Modified By Organization Details Last Modified Time Details Appointments None recorded. Lab None recorded. Referral urogynecolo gist referral - Please call Melissa to schedule her for an appt. The referring provider wants the patient to see Elly Harding. I have attached the patient demographic s, office notes, and lab results. If you have any questions or require further information , please contact me at [phone]. Thank you, CARMELINA Sneed 2020 021 [facility] Care Physician Referral Management, [address] [facility] [address], [place], [address], 13:46:43 Procedures None recorded. Surgeries None recorded. Imaging None recorded. Medication Orders Diflucan 200 mg tablet 2020 021 [id number], [address] [facility] [address], [place], [place], [id number], 10/28/202 4 14:20:06 clobetasol 0.05 % topical ointment [address] [facility]32603, [address] [place], [place], [id number], 4 14:19:57 Diflucan 200 mg tablet [address] [facility]03815, [address] [place], [place], [id number], 4 14:20:06 nystatin-tr iamcinolone 100,000 unit/gram-0 .1 % topical ointment [address] [facility]81443, [address] [place], [place], [id number], 4 14:20:21 nystatin-tr iamcinolone 100,000 unit/gram-0 .1 % topical ointment [address] [facility] #70832, [address] [place], [place], [id number], 4 14:20:21 nystatin-tr iamcinolone 100,000 unit/gram-0 .1 % topical ointment 2020 [address]21 [address] [facility], [address] [place], [place], [id number], 4 14:20:21 Diflucan 150 mg tablet [address] [facility]02387, [address] [place], [place], [id number], 1 11:17:12 Patient TargetsNo targets recorded. Patient InstructionsNo instructions recorded. Reason for Referral Urogynecologist Referral for Vaginitis Vulvar specialist for recurrent yeast Please call Meilssa to schedule her for an appt. The referring provider wants the patient to see Elly Harding. I have attached the patient demographics, office notes, and lab results. If you have any questions or require further information, please contact me at [phone]. Thank you, CARMELINA Sneed Referring Physician: Jennifer Ovalle, CIRCULAR [employer]W [employer] FUSER, Encounter Date: 04/26/2021 Results Created Date Observation Date Name Description Value Unit Range Abnormal Flag Note LastModifiedBy Organization Detail LastModifiedTime 12/19/19 21 12/18/2020 VAGIN ITIS/ VAGIN OSIS, DNA PROBE nusrat sp. detection, direct probe Positi ve negati ve abnormal Not Available [facility] (Lab) [address], [place], [address], 12/19/2020 19:11:19 12/19/19 21 12/18/2020 VAGIN ITIS/ VAGIN OSIS, DNA PROBE gardnerella vag. detection, direct probe Negati ve negati ve Not Available [facility] (Lab) [address], [place], [address], 12/19/2020 19:11:19 12/19/19 21 12/18/2020 VAGIN ITIS/ VAGIN OSIS, DNA PROBE trichomonas vag. detection, direct probe Negati ve negati ve Not Available [facility] (Lab) [address] [place], [address], 12/19/2020 19:11:19 02/01/20 21 01/31/2021 VAGIN ITIS/ VAGIN OSIS, DNA PROBE nusrat sp. detection, direct probe Positi ve negati ve abnormal Not Available [facility] (Lab) [address] [place], [address], 02/01/2021 22:02:49 02/01/20 21 01/31/2021 VAGIN ITIS/ VAGIN OSIS, DNA PROBE gardnerella vag. detection, direct probe Negati ve negati ve Not Available [facility] (Lab) [address], [place], [address], 02/01/2021 22:02:49 02/01/20 21 01/31/2021 VAGIN ITIS/ VAGIN OSIS, DNA PROBE trichomonas vag. detection, direct probe Negati ve negati ve Not Available [facility] (Lab) [address], [place], [address], 02/01/2021 22:02:49 04/26/20 21 04/26/2021 MOBIL UNCUS MULIE RIS/C URTIS LI, RT-PC R, ONE SWAB nm bkr mobiluncus mulieris and mobiluncus curtisii by RT-PCR Negati ve Swab- 1 Vag/C erv Not Available [facility] (Lab) [address], [place], [address], 05/07/2021 05:03:00 04/26/20 21 04/26/2021 BACTE RIAL VAGIN OSIS PANEL RT-PC R, ONESW AB gardnerella vaginalis PCR Negati ve Swab- 1 Vag/C erv Not Available [facility] (Lab) [address] [place], [address], 05/07/2021 05:03:01 04/26/20 21 04/26/2021 BACTE RIAL VAGIN OSIS PANEL RT-PC R, ONESW AB atopobium vaginae PCR Negati ve Swab- 1 Vag/C erv Not Available [facility] (Lab) [address] [place], [address], 05/07/2021 05:03:01 04/26/20 21 04/26/2021 BACTE RIAL VAGIN OSIS PANEL RT-PC R, ONESW AB bacterial vaginosis associated bacteria 2 (bvab2) Negati ve Swab- 1 Vag/C erv Not Available [facility] (Lab) [address] [place], [address], 05/07/2021 05:03:01 04/26/20 21 04/26/2021 BACTE RIAL VAGIN OSIS PANEL RT-PC R, ONESW AB megasphaera species (type 1 and type 2) PCR Negati ve (Type1 ,Type2 ) Swab- 1 Vag/C erv Type1 :Nega tive Type2 :Nega tive. Not Available [facility] (Lab) [address] [place], [address], 05/07/2021 05:03:01 04/26/20 21 04/26/2021 BACTE RIAL VAGIN OSIS PANEL RT-PC R, ONESW AB lactobacillu s (bvpanel) PCR See Commen t Swab- 1 Vag/C erv L.cri spatu s: Negat daniel L.reginaldo senii : Negat daniel L.gas seri : Posit daniel L.ine rs : Posit daniel. Not Available [facility] (Lab) [address] [place], [address], 05/07/2021 05:03:01 04/26/20 21 04/26/2021 UROGE NITAL MYCOP LASMA /UREA PLASM A PANEL RT-PC R, ONESW AB nm bkr mycoplasma genitalium by RT-PCR Negati ve Swab- 1 Vag/C erv Not Available [facility] (Lab) [address] [place], [address], 05/07/2021 05:03:01 04/26/20 21 04/26/2021 UROGE NITAL MYCOP LASMA /UREA PLASM A PANEL RT-PC R, ONESW AB nm bkr mycoplasma hominis by RT-PCR Negati ve Swab- 1 Vag/C erv Not Available [facility] (Lab) [address] [place], [address], 05/07/2021 05:03:01 04/26/20 21 04/26/2021 UROGE NITAL MYCOP LASMA /UREA PLASM A PANEL RT-PC R, ONESW AB nm bkr ureaplasma urealyticum by RT-PCR Negati ve Swab- 1 Vag/C erv Not Available [facility] (Lab) [address], [place], [address], 05/07/2021 05:03:01 04/26/20 21 04/26/2021 YOON DA VAGIN ITIS PANEL RT-PC R, ONESW AB nusrat albicans PCR Negati ve Swab- 1 Vag/C erv Not Available [facility] (Lab) [address], [place], [address], 05/07/2021 05:03:02 04/26/20 21 04/26/2021 YOON DA VAGIN ITIS PANEL RT-PC R, ONESW AB nusrat tropicalis PCR Negati ve Swab- 1 Vag/C erv Not Available [facility] (Lab) [address] [place], [address], 05/07/2021 05:03:02 04/26/20 21 04/26/2021 YOON DA VAGIN ITIS PANEL RT-PC R, ONESW AB nusrat parapsilosis PCR Negati ve Swab- 1 Vag/C erv Not Available [facility] (Lab) [address] [place], [address], 05/07/2021 05:03:02 04/26/20 21 04/26/2021 YOON DA VAGIN ITIS PANEL RT-PC R, ONESW AB nusrat glabrata PCR Positi ve abnormal Swab- 1 Vag/C erv Not Available [facility] (Lab) [address] [place], [address], 05/07/2021 05:03:02 04/26/20 21 04/26/2021 YOON DA JONATHAN I BY RT-PC R nusrat krusei by RT-PCR Negati ve Swab- 1 Vag/C erv Not Available [facility] (Lab) [address] [place], [address], 05/07/2021 05:03:02 03/22/20 22 03/22/2022 ashok DEGROOT bilat eral No observ ation record ed. [id number], [place], [address], 05/20/2023 17:30:52 Result Notes None recorded. Problems Name Problem SNOMED Code Status Onset Date Resolution Date Notes Provider Name and Address Organization Details Recorded Time Screenin g for malignan t neoplasm of cervix Completed 201012/18/2020 Screening for malignant neoplasms of the cervix;Re corded Elsewhere : No Locati on: [facility] So urce: EHR Chron ic: N Practic e ID: [id number] Bill able Time: 02:00:00 PM Bell Doran [facility] 14:44:12 Vaginiti s and vulvovag initis Completed 201012/18/2020 Vaginitis ;Recorded Elsewhere : No Locati on: [facility] So urce: EHR Chron ic: N Practic e ID: 0001 Bill able Time: 02:00:00 PM Bell Marsh [facility] 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 14:44:37 Adult health examinat ion Completed 201012/18/2020 Routine Medical Exam;[place] rded Elsewhere : No Locati on: [facility] So urce: EHR Chron ic: N Practic e ID: 0001 Bill able Time: 02:00:00 PM Bell nix [facility] 14:44:17 Abscess of vulva [id number] Completed 201812/18/2020 Abscess of vulva;Rec orded Elsewhere : No Locati on: [facility] So urce: EHR Chron ic: N Practic e ID: [id number] Bill able Time: 10:30:00 AM Bell nix [facility] 14:44:35 Screenin g for malignan t neoplasm of rectum Completed 201012/18/2020 Screening for malignant neoplasms of the rectum;Re corded Elsewhere : No Locati on: [facility] So urce: EHR Chron ic: N Practic e ID: 0001 Bill able Time: 02:00:00 PM Bell nix [facility] 14:44:19 Lichen simplex chronicu s [id number] Completed 201812/18/2020 Lichen simplex chronicus ;Recorded Elsewhere : No Locati on: [facility] So urce: EHR Chron ic: N Practic e ID: 0001 Bill able Time: 04:30:00 PM Bell nix [facility] 14:44:32 Speciali d medical examinat ion Completed 201012/18/2020 Gynecolog ical Examinati on;Record ed Elsewhere : No Locati on: [facility] So urce: EHR Chron ic: N Practic e ID: 0001 Bill able Time: 02:00:00 PM Bell nix [facility] 14:44:23 Problem Notes None recorded. Procedures Surgical History Date Name Laterality Status Provider Name and Address Organization Details Recorded Time 03/22/20 Date of Last Mammogram completed Aleyda Gagnon [facility] 03/01/2024 14:21:29 02/19/20 20 Most Recent Bone Density completed Aleyda Gagnon [facility] 03/01/2024 14:21:33 05/05/19 13 [facility] 17:16:09 05/05/19 13 [facility] 17:16:31 05/14/[address] [facility] 12/18/2020 14:49:15 02/08/20 11 Date of Last Pap Smear completed [facility] 12/18/2020 14:49:29 05/05/[address] [facility] 12/18/2020 14:51:03 05/05/19 00 procedure on knee completed [facility] 09/24/2019 17:17:14 05/05/18 87 Total Hysterectomy completed [facility] 09/24/2019 17:15:14 05/05/18 77 Tubal Ligation completed [facility] 09/24/2019 17:14:52 Imaging Results Imaging Date Name Status LastModified by Organiz ation Details LastModified Time 03/22/2022 MAMMO, screening, bilateral completed [address], [place], [address], 05/20/2023 17:30:52 Procedure Notes None recorded. Medical Equipment None Reported. Allergies No known drug allergies Medications Name Sig Start Date Stop Date Status Note LastModified by Organization Details LastModified Time metformin 500 mg tablet take 1 tablet by oral route 2 times every day with morning and evening meals 12/18 completed Prescrib ed Elsewher e: Yes Loca tion: [facility] odify By: ganga Mahmood ncounter DateTime : 03/08/20 19 10:30:00 AM Not Available Not Available Not Available Vitamin B-12 100 mcg tablet active Not Available Not Available Not Available fluconazo le 150 mg tablet take 1 tablet (150MG) by oral route every other day for one week 01/31 completed Not Available Not Available Not Available fluconazo le 200 mg tablet TAKE 1 TABLET BY MOUTH EVERY OTHER DAY FOR 3 DAYS 03/01 completed Not Available Not Available Not Available valsartan 80 mg tablet TAKE 1 TABLET BY MOUTH DAILY active Not Available Not Available No t Available lithium carbonate 150 mg capsule take 2 capsule by oral route 3 times every day 07/01 completed Prescrib ed Elsewher e: Yes [facility] By: danni fisher DateTime : 02/03/20 11 05:54:48 PM Not Available Not Available Not Available allopurin ol 100 mg tablet TAKE 1 TABLET BY MOUTH DAILY active Not Available Not Available No t Available risperido ne 3 mg tablet TAKE 1 TABLET BY MOUTH EVERY DAY 03/01 completed Not Available Not Available Not Available temazepam 7.5 mg capsule take 1 capsule by oral route every day at bedtime as needed 12/18 completed Prescrib ed Elsewher e: Yes Loca tion: [facility] odify By: richard Mahmood ncounter DateTime : 02/06/20 11 02:00:00 PM Not Available Not Available Not Available glimepiri de 2 mg tablet TAKE 1 TABLET BY MOUTH WITH BREAKFAS T AND 2 TABLETS WITH SUPPER DAILY 03/01 completed Not Available Not Available Not Available glimepiri de 1 mg tablet take 1 tablet by oral route every day 12/18 completed Prescrib ed Elsewher e: Yes Loca tion: [facility] odify By: danni fisher DateTime : 08/06/19 14 11:15:00 AM Not Available Not Available Not Available nystatin- triamcino lone 100,000 unit/gram -0.1 % topical ointment APPLY TOPICALL Y TO THE AFFECTED AREA TWICE DAILY FOR 5 DAYS 03/01 completed Not Available Not Available Not Available risperido ne 2 mg tablet 03/01 completed Not Available Not Available Not Available temazepam 30 mg capsule TAKE 1 CAPSULE BY MOUTH DAILY AT BEDTIME active Not Available Not Available No t Available Bactroban 2 % topical ointment apply by topical route 3 times every day a small amount to the affected area 03/08 completed Prescrib ed Elsewher e: No Locat [place]: [place] [facility] odify By: ganga maresjohn DateTime : 09/03/19 14 11:00:00 AM Not Available Not Available Not Available Cipro 500 mg tablet take 1 tablet by oral route every 12 hours 03/08 completed Prescrib ed Elsewher e: No Locat ion: [facility] odify By: ganga mares DateTime : 09/03/19 14 11:00:00 AM Not Available Not Available Not Available clotrimaz ole-betam ethasone 1 %-0.05 % topical cream APPLY TOPICALL Y TO THE AFFECTED AREA TWICE DAILY FOR 3 WEEKS 03/01 completed Not Available Not Available Not Available clobetaso l 0.05 % topical ointment APPLY THIN LAYER TOPICALL Y TO THE AFFECTED AREA TWICE DAILY NEEDED. MAX OF 5 DAYS. APPLY SPARINGL Y 03/01 completed Not Available Not Available Not Available lorazepam 1 mg tablet TAKE 1 TABLET BY MOUTH DAILY active Not Available Not Available No t Available Aspir-81 mg tablet,de layed release take 1 tablet by oral route every day active Not Available Not Available No t Available oxcarbaze pine 300 mg/5 mL (60 mg/mL) oral suspensio n take 5 millilit er by oral route 2 times every day 03/08 completed Prescrib ed Elsewher e: Yes [facility] By: ganga mareser DateTime : 07/01/19 14 10:15:00 AM Not Available Not Available Not Available ketoconaz ole 2 % topical cream apply by topical route every day to the affected area(s) 03/08 completed Prescrib ed Elsewher e: No Locat ion: [facility] mahmood [facility] odify By: ganga mares DateTime : 09/03/19 14 11:00:00 AM Not Available Not Available Not Available Terazol 7 0.4 % vaginal cream insert 1 applicat orful by vaginal route every day for 7 days at bedtime 02/11 completed Prescrib ed Elsewher e: No Locat ion: [facility] mahmood [facility] odify By: lizz tz Encou nter DateTime : 02/06/20 11 02:00:00 PM Not Available Not Available Not Available metformin ER 500 mg tablet,ex tended release 24 hr TAKE 2 TABLETS BY MOUTH TWICE DAILY WITH MEALS active Not Available Not Available No t Available sertralin e 50 mg tablet TAKE 1 TABLET BY MOUTH DAILY active Not Available Not Available No t Available risperido ne 1 mg tablet TAKE 1 TABLET BY MOUTH DAILY active Not Available Not Available No t Available risperido ne 0.5 mg tablet TAKE 1 TABLET BY MOUTH EVERY NIGHT AT BEDTIME 03/01 completed Not Available Not Available Not Available amoxicill in 875 mg-potass ium clavulana te 125 mg tablet TAKE 1 TABLET BY MOUTH TWICE DAILY 03/01 completed Not Available Not Available Not Available Bactrim DS 800 mg-160 mg tablet take 1 tablet by oral route every 12 hours 09/03 completed Prescrib ed Elsewher e: No Locat ion: [facility] mahmood [facility] odify By: gmedical Encount er DateTime : 07/07/19 14 03:11:30 PM Not Available Not Available Not Available valsartan 40 mg tablet TAKE 2 TABLETS BY MOUTH DAILY 12/18 completed Not Available Not Available Not Available rosuvasta tin 10 mg tablet take 1 tablet by oral route every day 12/18 completed Prescrib ed Elsewher e: Yes [facility] odify By: butchose Timoteo ncounter DateTime : 03/08/20 19 10:30:00 AM Not Available Not Available Not Available rosuvasta tin 40 mg tablet TAKE 1 TABLET BY MOUTH DAILY active Not Available Not Available No t Available Riomet 500 mg/5 mL oral solution take 10 millilit er by oral route 2 times every day with meals 09/02 completed Prescrib ed Elsewher e: Yes Loca tion: [facility] mahmood [facility] odify By: danni fisher DateTime : 02/06/20 11 02:00:00 PM Not Available Not Available Not Available Spiriva with [employer] r 18 mcg and inhalatio n capsules inhale 1 capsule by inhalati on route every day 03/08 completed Prescrib ed Elsewher e: Yes Loca tion: [facility] odify By: butchose E ncounter DateTime : 10/07/19 13 02:45:00 PM Not Available Not Available Not Available Januvia 100 mg tablet take 1 tablet by oral route every day 06/16 completed Prescrib ed Elsewher e: Yes Loca tion: [facility] odify By: edilam z Sabino fisher DateTime : 03/08/20 19 10:30:00 AM Not Available Not Available Not Available hydrochlo rothiazid e 12.5 mg tablet TAKE 1 TABLET BY MOUTH DAILY active Not Available Not Available No t Available Vitamin D3 50 mcg (2,000 unit) capsule active Not Available Not Available Not Available Jardiance 25 mg tablet TAKE 1 TABLET BY MOUTH DAILY active Not Available Not Available No t Available Trelegy Ellipta 100 mcg-62.5 mcg-25 mcg powder for inhalatio n INHALE 1 PUFF BY MOUTH ONCE DAILY. RINSE MOUTH AND SPIT AFTER EACH USE 03/01 completed Not Available Not Available Not Available Bydureon BCise 2 mg/0.85 mL subcutane ous auto-inje ctor 03/01 completed Not Available Not Available Not Available Ozempic 2 mg/dose (8 mg/3 mL) subcutane ous pen injector ADMINIST ER 2 MG UNDER THE SKIN WEEKLY active Not Available Not Available No t Available Vitals Date Recorded Body height Body mass index (BMI) Body weight Systolic blood pressure Diastolic blood pressure Provider Name and Address Organization Details Last Updated DateTime 12/18/2020 157.48 cm 51.8 kg/m2 539027.6 4 g 137 mm[Hg] 82 mm[Hg] Bell Marsh [facility] 16:46:23 Date Recorded Body height Body mass index (BMI) Body weight Systolic blood pressure Diastolic blood pressure Provider Name and Address Organization Details Last Updated DateTime 12/29/2020 157.48 cm 51.8 kg/m2 220756.6 4 g 138 mm[Hg] 75 mm[Hg] Felisha Bonner [facility] 16:09:32 Date Recorded Body height Body mass index (BMI) Body weight Provider Name and Address Organization Details Last Updated DateTime 01/31/2021 157.48 cm 52.9 kg/m2 114161.19 g Eloina [facility] 01/31/2021 11:41:54 Date Recorded Systolic blood pressure Diastolic blood pressure Provider Name and Address Organization Details Last Updated DateTime 01/31/2021 163 mm[Hg] 80 mm[Hg] Jennifer Ovalle, [facility] [address], [place], [address], [facility] 01/31/2021 12:09:52 Date Recorded Body height Body mass index (BMI) Body weight Provider Name and Address Organization Details Last Updated DateTime 04/26/2021 157.48 cm 52.3 kg/m2 516566.42 g Eloina [facility] 04/26/2021 10:57:21 Date Recorded Systolic blood pressure Diastolic blood pressure Provider Name and Address Organization Details Last Updated DateTime 04/26/2021 132 mm[Hg] 70 mm[Hg] Jennifer Ovalle, [facility] [address], [place], [address], [facility] 04/26/2021 11:07:31 Date Recorded Body height Body mass index (BMI) Body weight Systolic blood pressure Diastolic blood pressure Provider Name and Address Organization Details Last Updated DateTime 03/01/2024 157.48 cm 41.9 kg/m2 889927.6 5 g 96 mm[Hg] 62 mm[Hg] Aleyda Gagnon [facility] 14:19:40 Social History Question Answer Notes LastModified by Organizat ion Details LastModified Time Tobacco Smoking Status Never Smoker Felisha nix, [facility] 09/24/2019 17:13:58 What Is Your Level Of Alcohol Consumption? Occasional Information not available 09/24/2019 Are You Blind Or Do You Have Difficulty Seeing? No [email or web address] Information not available 12/29/2020 Are You Deaf Or Do You Have Serious Difficulty Hearing? No [email or web address] Information not available 12/29/2020 What Type Of Diet Are You Following? REGULAR [email or web address] Information not available 12/29/2020 Do You Or Have You Ever Used E-cigarettes Or Vape? Never Used Electronic Cigarettes [email or web address] Information not available 09/24/2019 What Was The Date Of Your Most Recent Tobacco Screening? 12/29/2020 [email or web address] Information not available 12/29/2020 Do You Or Have You Ever Used Smokeless Tobacco? Never Used Smokeless Tobacco [email or web address] Information not available 09/24/2019 How Much Tobacco Do You Smoke? No [email or web address] Information not available 09/24/2019 Sex: Unknown Functional Status Question Answer Note LastModified by Organizat ion Details LastModified Time Are you able to walk? YESWOREST [email or web address] Information not available 12/29/2020 What is your exercise level? Occasional [email or web address] Information not available 09/24/2019 Mental Status None recorded. Family History Relationship Description Onset Age of this Age Resolved Age Notes LastModified by Organization Details LastModified Time Sister Malignant tumor of colon [email or web address] Not available 09/23 17:12:51 Paternal Grandmother Malignant tumor of colon [email or web address] Not available 09/23 17:12:51 Father Myocardial infarction [email or web address] Not available 09/03 17:13:18 Maternal Grandmother Myocardial infarction [email or web address] Not available 09/03 17:13:18 Mother Heart disease [email or web address] Not available 09/23 17:13:31 Medical History Condition Response High Cholesterol Y Heart Problems Y Diabetes Y Hepatitis/Liver Disease Y Depression/ depression Y Hypertension Y Gynecological History Statement/Question Response Abnormal Pap N Date of Last Mammogram 03/22/2022 Date of LMP 05/05/1986 STIs/STDs N Colposcopy 05/14/2011 11 Current Control Method Hysterectom y Most Recent Bone Density 02/19/2020 Sexually Active? N Date of Last Pap Smear 02/07/2011 Sexual Problems? N Desired Control Method Hysterectom y LMP Definite 05/05/2010 Obstetrics History GPAL:G 4 P 1 0 3 1 Type Value Full Term 1 Spontaneous 3 Living 1 Total 4 Past Encounters Encounter ID Performer Location Encounter Start Date Encounter Closed Date Diagnosis/Indication Diagnosis SNOMED-CT Code Diagnosis ICD10 Code Diagnosis Note [id number] Patt Scales [facility] [address],[place] [address] 09/24/2019 15:54:58 09/28/2019 14:22:50 Candidiasis of skin 50168079 B37.2 x 1 week and then as needed Gynecologi c examination 32287944 Z01.419 [id number] Bernadette Petros [place] [address],[place] [address] 12/18/2020 16:40:06 12/19/2020 17:46:34 Candidiasis of skin 85760572 B37.2 Discussed use of mild soap like dove or ivory, cotton underwear w/out dye, hypoallerg enic detergent, wipe from front to back, avoid tub baths, keep perineum clean and dry, d/c use of baby wipes. Encouraged daily intake of yogurt or womens health probiotic. Internal and external affirm collected. Will treat for likely yeast. RTC in 1-2 weeks to re-evaluat e. [id number] [facility] [address],[place] [address] 12/29/2020 15:57:47 12/31/2020 16:28:59 Vaginitis 61068923 N76.0 [id number] [facility] [address],[place] [address] 01/31/2021 11:28:42 01/31/2021 12:29:28 Vaginitis 65270963 N76.0 Issues with recurrent yeast infections likely due to DM2 & HbgA1c levels of >6.5 but below 7.0 which she reports her endocrinol ogist is very happy about as they used to be significan tly higher. Will treat for yeastSwab sentRF's given while she is working on her blood sugarsVCG s given for review Time spent in visit is a total of 15 mins with at least 50% of visit consisting of counseling and review of plan of care.Addit ional precaution kay measures were taken to minimize potential exposure to the Covid-19 virus during this patient s visit, including available hand furniture inspector upon arrive, temperatur e check and being asked a series of screening questions. All staff wore face coverings during this encounter, as well as provided additional cleaning and sanitizing of all surfaces, including countertop s, pens, chairs, door handles, light switches, etc, prior to and following the patient s visit. [id number] Jennifer Ovalle , [facility] [address],[place] [address] 04/26/2021 10:46:39 04/26/2021 13:05:50 Vaginitis 22331408 N76.0 Suspect yeast infection todayWe discussed increased risk of more frequent yeast infection with DM & postmenopa usal status also likely another contributi ng factor. Today, we [facility]We discussed the use of the steroid ointment; this product needs to be used VERY Sparingly bc it can thin the skin out further & cause additional issues.Franklyn sturize with vegetable oil DAILY!!! Multiple times a day preferred. VCG s were previously discussed. Time spent in visit is a total of 15 mins with at least 50% of visit consisting of counseling and review of plan of care.Addit ional precaution kay measures were taken to minimize potential exposure to the Covid-19 virus during this patient s visit, including available hand furniture inspector upon arrive, temperatur e check and being asked a series of screening questions. All staff wore face coverings during this encounter, as well as provided additional cleaning and sanitizing of all surfaces, including countertop s, pens, chairs, door handles, light switches, etc, prior to and following the patient s visit. Herniation of rectum into vagina 135443552 N81.6 Declines referral to urogyn for evaluation of rectocele. Does not feel it effects her bowel habits or causes other issues.Pre fers to monitor. [id number] Raza Queen MD [place] [address],[place] [address] 03/01/2024 13:53:25 03/01/2024 15:04:37 Postcoital bleeding 42238859 N93.0 This patient is a 78-year-ol d female presents for postcoital bleeding. She had a moderate amount of bleeding after intercours e. She said it was painless. It occurred 2 weeks ago. She was examined. She is status post hysterecto my. There is no break in the vaginal mucosa or the vulvar skin. There is a band of tissue that is taught on the posterior aspect of the introitus. At the posterior fourchette . She was given reassuranc e. We agreed to observe. Health Concerns Section Related Observation LastModified by Organization Detai ls LastModified Time None Recorded Concern Status LastModified by Organization Details LastModified Time None Recorded Advance Directives Directive None Recorded Payers Encounter Date Sequence Insurance Name Policy Number Policy Saldaña Covered Member ID Saldaña Member ID Guarantor Name 12/18/2020 1 [facility] (MEDICARE REPLACEMENT/A DVANTAGE - PPO) [id number] Melissa Rohan Ricci [id number] Melissa Madrigal Radhames 12/18/2020 2 [place] Melissa Madrigal Ricci [id number] Melissa Madrigal Ricci 12/29/2020 1 [facility] (MEDICARE REPLACEMENT/A DVANTAGE - PPO) [id number] Melissa Rohan Ricci [id number] Melissa Rohan Ricci 12/29/2020 2 [place] Melissa Madrigal Ricci [id number] Melissa Rohan Ricci 01/31/2021 1 [facility] (MEDICARE REPLACEMENT/A DVANTAGE - PPO) [id number] Melissa Rohan Ricci [id number] Melissa Rohan Ricci 01/31/2021 2 [place] Melissa Rohan Ricci [id number] Melissa Rohan Ricci 04/26/2021 1 [facility] (MEDICARE REPLACEMENT/A DVANTAGE - PPO) [id number] Melissa Ricci [id number] Melissajulia Ricci 03/01/2024 1 [facility] (MEDICARE REPLACEMENT/A DVANTAGE - PPO) [id number] Melissa Ricci [id number] Melissa Ricci Notes Date Note Type Note Provider Name and Address Organization Details Recorded Time 12/18/2020 text/html Bumps 1 month ag o on her labia. [place] like paper cuts. Itching and irritation. Bernadette nix, [facility] 01/02/2021 22:06:57 12/29/2020 text/html f/u yeast infect ion diflucan and nystatin cream worked well, no pain no complaints Patt Scales, LISA [address], [place], [address], [facility] 12/29/2020 16:24:47 01/31/2021 text/html Vaginal/Vulvar ProblemReported bypatient.Notes:Here today for recurrent yeast infection issues.Has DM2 & blood sugars being managed by chemical laboratory assistant.Get' s yeast infections more easily since HgbA1c is higher >6.5 but lower than 7.0Her sx's today are white thick d/c, itching & irritation mainly on outside of vulva.Not SAFeels this is happening at least once a month for the last 3mos-4mos.OTC treatment helps but it also makes her feel more irriated. Neg urinary sx'sNeg GI issuesNeg N/V/F/D/CNeg pelvic or abd pain ASHLEY Isbell-SONNY [address], [place], [address], [facility] 01/31/2021 12:15:09 04/26/2021 text/html Vaginal/Vulvar ProblemReported bypatient.Notes:Here today or recurrent vag yeast infection & vag irritation.This is the 3rd yeast infection she has had in less than 6mos.Aware her DM is a factor as is postmenopause.Her sx's today include vag irritation, itching, & the thick clumpy vag d/c that she will see on her undergarments.She has been using the VCG's that she was previously instructed on; although only using the olive oil when I feel irritated down there. RADHA Isbell [address], [place], [address], [facility] 04/26/2021 13:02:45 03/01/2024 text/html This patient is a 78-year-old female presents for postcoital bleeding. She had a moderate amount of bleeding after intercourse. She said it was painless. It occurred 2 weeks ago. She was examined. She is status post hysterectomy. There is no break in the vaginal mucosa or the vulvar skin. There is a band of tissue that is taught on the posterior aspect of the introitus. At the posterior fourchette. She was given reassurance. We agreed to observe. Raza Queen MD [address], [place], [address], [facility] 03/01/2024 14:58:46 OBGyn Episode Ob Episode Information Episode Created Date Number of Fetuses Patient Bloodtype Patient rh Status Prepregnancy Weight lbs Domestic Partner Domestic Partner Phone Father Name Conveyor Maintenance Mechanic Status 09/24/19 20 1 CLOSED Fetus Data First Name Last Name Admitted to NICU Weight (g) Sex Living Outcome Pediatric Complications Fetus ID Race Codes Race Delivery Type , Spontane ous 1669 Michael Calculation Initial Michael Date Initial Exam Date Initial Exam Provider Initial Ultrasound Date Last Menstrual Period Date Ultra Sound Weeks Gestation 0 Eighteen To Twenty Week Michael Update Ultra Sound Date Fundal Height At Umbil Quickening Date Ultra Sound Latest Weeks Gestation Final Michael Confirmed By Final Michael Confirmed Date Final Michael Date Ultra Sound Latest Days Gestation 0 0 Menstrual History Last Menstrual Date Menses Monthly On Bcp Conception Prior Menses Frequency Hcg Plus Date Menarche Onset Age Delivery Information Delivery Date Delivery Type Labor Anesthesia Weeks Gestation Incision Type Labor Labor Length Hrs Delivered By Post Complications Tubal Sterilization Discharge Date Comments 7 Discharge Information Feeding Method Contraceptive Method Maternal HG B and HCT Levels Ob Episode Information Episode Created Date Number of Fetuses Patient Bloodtype Patient rh Status Prepregnancy Weight lbs Domestic Partner Domestic Partner Phone Father Name Conveyor Maintenance Mechanic Status 09/24/19 20 1 CLOSED Fetus Data First Name Last Name Admitted to NICU Weight (g) Sex Living Outcome Pediatric Complications Fetus ID Race Codes Race Delivery Type , Spontane ous 1668 Michael Calculation Initial Michael Date Initial Exam Date Initial Exam Provider Initial Ultrasound Date Last Menstrual Period Date Ultra Sound Weeks Gestation 0 Eighteen To Twenty Week Michael Update Ultra Sound Date Fundal Height At Umbil Quickening Date Ultra Sound Latest Weeks Gestation Final Michael Confirmed By Final Michael Confirmed Date Final Michael Date Ultra Sound Latest Days Gestation 0 0 Menstrual History Last Menstrual Date Menses Monthly On Bcp Conception Prior Menses Frequency Hcg Plus Date Menarche Onset Age Delivery Information Delivery Date Delivery Type Labor Anesthesia Weeks Gestation Incision Type Labor Labor Length Hrs Delivered By Post Complications Tubal Sterilization Discharge Date Comments 6 Discharge Information Feeding Method Contraceptive Method Maternal HG B and HCT Levels Ob Episode Information Episode Created Date Number of Fetuses Patient Bloodtype Patient rh Status Prepregnancy Weight lbs Domestic Partner Domestic Partner Phone Father Name Conveyor Maintenance Mechanic Status 09/24/19 20 1 CLOSED Fetus Data First Name Last Name Admitted to NICU Weight (g) Sex Living Outcome Pediatric Complications Fetus ID Race Codes Race Delivery Type M Full Term 1670 Vaginal Delivery Michael Calculation Initial Michael Date Initial Exam Date Initial Exam Provider Initial Ultrasound Date Last Menstrual Period Date Ultra Sound Weeks Gestation 0 Eighteen To Twenty Week Michael Update Ultra Sound Date Fundal Height At Umbil Quickening Date Ultra Sound Latest Weeks Gestation Final Michael Confirmed By Final Michael Confirmed Date Final Michael Date Ultra Sound Latest Days Gestation 0 0 Menstrual History Last Menstrual Date Menses Monthly On Bcp Conception Prior Menses Frequency Hcg Plus Date Menarche Onset Age Delivery Information Delivery Date Delivery Type Labor Anesthesia Weeks Gestation Incision Type Labor Labor Length Hrs Delivered By Post Complications Tubal Sterilization Discharge Date Comments 2 Discharge Information Feeding Method Contraceptive Method Maternal HG B and HCT Levels Ob Episode Information Episode Created Date Number of Fetuses Patient Bloodtype Patient rh Status Prepregnancy Weight lbs Domestic Partner Domestic Partner Phone Father Name Conveyor Maintenance Mechanic Status 09/24/19 20 1 CLOSED Fetus Data First Name Last Name Admitted to NICU Weight (g) Sex Living Outcome Pediatric Complications Fetus ID Race Codes Race Delivery Type , Spontane ous 1667 Michael Calculation Initial Michael Date Initial Exam Date Initial Exam Provider Initial Ultrasound Date Last Menstrual Period Date Ultra Sound Weeks Gestation 0 Eighteen To Twenty Week Michael Update Ultra Sound Date Fundal Height At Umbil Quickening Date Ultra Sound Latest Weeks Gestation Final Michael Confirmed By Final Michael Confirmed Date Final Michael Date Ultra Sound Latest Days Gestation 0 0 Menstrual History Last Menstrual Date Menses Monthly On Bcp Conception Prior Menses Frequency Hcg Plus Date Menarche Onset Age Delivery Information Delivery Date Delivery Type Labor Anesthesia Weeks Gestation Incision Type Labor Labor Length Hrs Delivered By Post Complications Tubal Sterilization Discharge Date Comments 5 Discharge Information Feeding Method Contraceptive Method Maternal HG B and HCT Levels
--- OUTSIDE RECORDS SUMMARY | 2024-07-26 16:12 | XMS_ITS | Patient Health Record ---
Author Organization [facility] Address [address] [facility] [address] [place] [address] Care Team Providers Care Billing Control Clerk Name Role Phone Lex BAPTISTE, Marcelo Primary Care Provider UnavailRhina Drake Unavailable [phone] Migration, Provider Unavailable Unavailable Nicolette Graves Unavailable [phone] Allergies No Known Allergies Results Component Value Reference Range Notes CONTROLLED SUBSTANCE AGREEME NT* Reviewed date:07/30/2023 12:00:00 AM Interpretation: Performing Lab: Notes/Report: Pt sign Control substance agreement signed DRUG SCREEN, 14 DRUGS (DETEC TIMED), URINE Reviewed date:07/30/2023 12:00:00 AM Interpretation: Performing Lab: Notes/Report: Amphetamine negative Barbiturates negative Benzodiazipine positive Buprenorphine negative Cocaine negative MDMA/Ectasy negative Methadone negative Methamphetamine negative Morphine negative note +BENZO Oxycodone negative Phenocyclidine negative THC negative UDT Reviewed date:02/10/2024 01:30:17 PM Interpretation: Performing Lab: Notes/Report: THC n 0 - 50 ng/ml Cocaine n 0 - 300 ng/ml Amphetamine n 0 - 1000 ng/ml Buprenorphine (BUP) n 0 - 10 ng/ml Secobarbital (Bar) n 0 - 300 ng/ml Oxazepam (BZO) p 0 - 300 ng/ml 4-ppxmymenfn-2,7-ssdqwcln-3, 3-diphenylpyrrolidine (EDDP) n 0 - 300 ng/ml Methamphetamine (MET) n 0 - 1000 ng/ml Methylenedioxymethamphetamine (MDMA) n 0 - 500 ng/ml Morphine (MOP 300/VUW5581) n 0 - 300 ng/ml Methadone (MTD) n 0 - 300 ng/ml Phencyclidine (PCP) n 0 - 25 ng/ml Nortriptyline (TCA) n 0 - 1000 ng/ml Oxycodone n 0 - 300 ng/ml x n 0 - 300 ng/ml Reason For Referral No Information Medications Medication SIG (Take, Route, Frequency, Duration) Notes Start Date End Date Status metFORMIN HCl ER 500 MG Oral 07/30/2023 Active Multivitamin Adults Oral 07/30/2023 Active Sertraline HCl 50 MG 1 tablet Oral Once a day for 90 days Active Jardiance 10 MG Oral 07/30/2023 Act daniel CHOLECALCIFEROL (VIT D3) 1,000 UNIT-VITAMIN K2 (MK4) 100 MCG TABLET *Reorder from [employer] for eRx and Interaction Alerts* 07/30/2023 Active hydroCHLOROthiazide 12.5 MG Oral 07/30/2023 Active Rosuvastatin Calcium 40 MG Oral 07/30/2023 Active Temazepam 30 MG 1 capsule at bedtime Oral Once a day for 90 days 05/21/2024 Active LORazepam 1 MG 1 tablet Oral Once a day for 90 days 05/21/2024 Active risperiDONE 1 MG 1 tablet Orally Once a day for 90 days Active Allopurinol 100 MG Oral 07/30/2023 Active Valsartan 80 MG Oral 07/30/2023 Act daniel Ozempic (2 MG/DOSE) 8 MG/3ML Subcutaneous *Reorder from [employer] for eRx and Interaction Alerts* 07/30/2023 Active [...] NoDo you have a medical power of lab animal technologist?: No Social History Substance UseDo you or have [...] NoDo you have a medical power of lab animal technologist?: No Social History Substance UseDo you or have [...] NoDo you have a medical power of lab animal technologist?: No Problems Problem Type SNOMED Code ICD Code Onset Dates Problem Status W/U Status Risk Notes Problem Bipolar II disorder (89626022) Bipolar II disorder (F31.81) 07/30/2023 Active confirmed Problem Chronic insomnia (144262188) Chronic insomnia (F51.04) Active confirmed Vital Signs Heart Rate 96 /min 05/21/2024 Height-cm 157.48 cm 05/21/2024 Blood pressure diastolic 80 mm Hg 05/21/2024 Weight-kg 100.7 kg 05/21/2024 Height 62.00 in 05/21/2024 Blood pressure systolic 136 mm Hg 05/21/2024 Weight 222 lbs 05/21/2024 BMI 40.6 kg/m2 05/21/2024 Encounters Encounter Location Date Provider Diagnosis [facility] [address] [facility] [address] [address] 07/30/2023 Rhina Hernandez Dietary counseling a nd surveillance Z71.3 ; Other sales and support center agent (current) drug therapy Z79.899 ; Psychophysiologic insomnia F51.04 and Bipolar II disorder F31.81 [facility] [address] [facility] [address] [address] 10/30/2023 Rhina Hernandez Bipolar II disorder F31.81 and Chronic insomnia F51.04 [facility] [address] [facility] [address] [facility] [address] [place] [address] 02/10/2024 Rhina Hernandez Bipolar II disorder F31.81 and Chronic insomnia F51.04 [facility] [address] [address] 05/21/2024 Nicolette Graves Bipolar II disorder F31.81 and Chronic insomnia F51.[address] [facility] [address] [place] [address] 09/20/2023 Provider Migration [address] [facility] [address] [place] [address] 09/21/2023 Provider Migration [address] [address] 02/10/2024 Rhina Mary [address] [facility] [address] [place] [address] 04/26/2024 Nicolette Graves Bipolar II disorder F31.81 Assessments Encounter Date Diagnosis (ICD Code) Assessment Notes Treatment Notes Treatment Clinical Notes Section Notes 10/30/2023 Bipolar II disorder (ICD-10 - F31.81) rule out type 1 stable-doing well, satisfied with current meds. However, she told staff who entered meds and confirmed with me during intake assesssment that risp was 3 mg, now says was not sure and could go home and double check old bottles, instead I will call pharmacy. after visit: called pharmacy as no past doses/fill showing in radha or ecw past rx history for risperidone, and no Dr harper records scanned in, prior to my fills to verify past dose other than pt report. per pharmacy staff, dr harper was prescribing risperisdone 0.5mg, sertraline 50mg, lorazepam 1mg/day, and tempazepam 30mg qhs. Called pt to explain plan, will do slow taper minimize risk of any rebound ilir, psychosis, depression, discontinuation sx, etc. DO NOT also take 3mg tabs, dispose. Pt v/u. may consider decrease down to 0.5mg next visit. Meds: decrease risperidone to 2mg daily x 2 wks, then 1mg daily; monitor mood/ilir carefully, call if concerns cont sertraline 50mg dailycont lorazepam 1mg daily dx: probable bipolar type II, chronic insomnia, long-term bzodiff: jennifer-overall denies but may just be adequately treated notes: -have discussed long-term BZO use generally not recommended, and has two, r/b/se, etc. She acknowledged potential risks, but preferred to avoid any changes as doing well. see intake note.-agreed to keep at 90 day supply as has been filling that way in [facility] and no apparent red flags. however, if issues in future may decrease to 30 day 04/26/2024 Bipolar II disorder (ICD-10 - F31.81) 05/21/2024 Bipolar II disorder (ICD-10 - F31.81) Bipolar disorder - Patient reports feeling even, no depressive or manic episodes Plan: - Continue sertraline 50 mg daily for mood stabilization Risperidone-i nduced tremor - Patient reports shakiness in the [...] concerns arise or issues with medication changes 10/30/2023 Chronic insomnia (ICD-10 - F51.04) cont temazepam 30mg qhs practice good sleep hygiene 02/10/2024 Bipolar II disorder (ICD-10 - F31.81) rule out type 1 cont risperidone 1mg dailycont sertraline 50mg dailycont lorazepam 1mg daily diff: jennifer-overall denies but may just be adequately treated staff completed SLUMS testing today, score: 29/30; will have scanned into chart UDS + BZO tolerated decrease risperidone. discuss options, she does not want to decrease further/duarte e, is satisfied as is, review r/b/se f/u in 3 months, earlier if concerns notes: -have discussed long-term BZO use generally not recommended, and has two, r/b/se, etc. She acknowledged potential risks, but preferred to avoid any changes as doing well. see intake note.-agreed to keep at 90 day supply as has been filling that way in [facility] and no apparent red flags. however, if issues in future may decrease to 30 day 07/30/2023 Bipolar II disorder (ICD-10 - F31.81) 07/30/2023 Psychophysiologic insomnia (ICD-10 - F51.04) 07/30/2023 Dietary counseling and surveillance (ICD-10 - Z71.3) 07/30/2023 Other sales and support center agent (current) drug therapy (ICD-10 - Z79.899) 02/10/2024 Chronic insomnia (ICD-10 - F51.04) cont temazepam 30mg qhs practice good sleep hygiene 05/21/2024 Chronic insomnia (ICD-10 - F51.04) Bipolar disorder - Patient reports feeling even, no depressive or manic episodes Plan: - Continue sertraline 50 mg daily for mood stabilization Risperidone-i nduced tremor - Patient reports shakiness in the [...] concerns arise or issues with medication changes 02/10/2024 Other Plan Of Treatment Next Appt Details Provider Name:Nicolette caicedo, 08/18/2024 02:00:00 PM, [address] [facility] [address] [facility] [address], [place], [address], Insurance Providers Payer Name Payer Address Payer Phone Subscriber Number Group Number Insured Name Patient Relationship to Insured Coverage Start Date Coverage End Date [facility] Medicare Replacement/ Advantage - Hmo [address] [address] [place] [address] [id number] PATRICK STORM Self - patient is the insured [place] [address] [place] [address] [id number] PATRICK STORM Self - patient is the insured Medical (General) History Medical History History ICD Code Problems: Bipolar II disorder Chronic insomnia hypertension gout diabetes type II hyperlipidemia fatty liver Surgical History Surgery Date(Month/Year) Hysterectomy (70851) Cataract surgery (25663) Removal of gallbladder (33963) Colectomy (81696) eye surgery 10/06/2023
--- OUTSIDE RECORDS SUMMARY | 2024-07-26 16:12 | XMS_ITS ---
Author Organization [facility] Address [address] [place] [address] Care Team Providers Care Floral Specialist Name Role Phone Marcelo Burnett MD Primary Care Provider Rhina Farias Unavailable [phone] Social History Sex Assigned At : Social History Observation Description Sex Assigned At Female Encounters Encounter Location Date Provider Diagnosis [facility] [address] [place] [address] 02/10/2024 Rhina Hernandez Plan Of Treatment Next Appt Details Provider Name:Nicolette Brownromero caicedo, 08/18/2024 02:00:00 PM, [address], [place], [address], Progress Notes * PATRICK STORM LDOB: [birth year] (78 yo F)Acc No.[id number]:02/10/2024 Patient: Jonathan VISHALAldaPATRICK :1945 A ge:78 Y S ex:Female Address:[address] [place] [address], [place], [address] * true * Date: Generated for Printi ng/Faxing/eTransmitting on: 0 07/26/2024 04:12 PM CDT
--- OUTSIDE RECORDS SUMMARY | 2024-07-26 16:12 | XMS_ITS | Clinical Summary ---
Author Organization [facility] Address [address] [place] [address] Phone Care Team Providers Care Sales Operations Name Role Phone Unavailable Primary Care Provider Unavailabl e Medications Medication Sig Dispensed Refills Start Date End Date Status risperiDONE (RISPERDAL) 3 MG tablet 1 tab/cap qday 0 01/14/2016 Active allopurinol (ZYLOPRIM) 100 MG tablet 1 tab/cap qday 0 01/14/2016 Active temazepam (RESTORIL) 30 MG capsule 1 tab/cap qhs PRN sleep 0 01/14/2016 Active rosuvastatin (CRESTOR) 20 MG tablet 1 tab/cap qday 0 01/14/2016 Active escitalopram (LEXAPRO) 10 MG tablet 1 tab/cap qday 0 01/14/2016 Active aspirin 325 MG tablet 1 tab/cap qday 0 01/14/2016 Active valsartan (DIOVAN) 40 MG tablet 1 tab/cap qday 0 01/14/2016 Active glimepiride (AMARYL) 2 MG tablet 1 tab/cap qday 0 01/14/2016 Active OXcarbazepine (TRILEPTAL) 150 MG tablet 1 tab/cap bid 0 01/14/2016 Active LORazepam (ATIVAN) 1 MG tablet 1 tab/cap bid PRN 0 01/14/2016 Active hydroCHLOROthiazide (HYDRODIURIL) 12.5 MG tablet 1 tab/cap qday 0 01/14/2016 Active Active Problems Problem Noted Date Diagnosed Date Other proteinuria 01/14/2016 Type 2 diabetes mellitus wit h other diabetic kidney complication 01/14/2016 Essential (primary) hypertension 01/14/2016 Other microscopic hematuria 01/14/2016 Overview (07/18/2018): Converted unresolved ICD9, potential mismatch. 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 Immunizations Name Administration Dates Next Due Influenza TIV (IM) 03/13/2016 Pneumococcal Conjugate 13-Valent 01/15/2016 Family History Medical History Relation Comments Coronary arteriosclerosis Father Heart disease Father Hypertensive disorder Father Diabetes mellitus Mother Malignant neoplastic disease Sibling Kidney disease Neg Hx Kidney stone Neg Hx Relation Status Comments Father Mother Sibling Social History Tobacco Use Types Packs/Day Years Used Date Smoking Tobacco: Never Assessed Sex and Gender Information Value Date Recorded Sex Assigned at Not on file Gender Identity Not on file Sexual Orientation Not on file Last Filed Vital Signs Vital Sign Reading Time Taken Comments Blood Pressure 142/78 09/11/2016 12:01 AM CDT Si tting, Right Pulse - - Temperature 36 C (96.8 F) 09/11/2016 12:01 AM CDT Respiratory Rate - - Oxygen Saturation - - Inhaled Oxygen Concentration - - Weight 123 kg (272 lb) 09/11/2016 12:01 AM CDT Height 157.5 cm (5' 2 ) 09/11/2016 12:01 AM CDT Body Mass Index 49.75 09/11/2016 12:01 AM CDT Plan of Treatment Not on file
== END 2024-07-26 14:03 | disposition home or self-care (01) ==
LOC: ANHIMG 14:05
PROVIDERS: PCP Family Medicine; Visit Provider Family Medicine
DX: Z12.31 Encounter for screening mammogram for malignant neoplasm of breast (principal)
CPT/HCPCS: 77063; 77067

== ENCOUNTER 2024-08-18 15:04 | Outpatient (CLI) | payer MEDICARE, SELFPAY ==
[2024-08-18 15:44] LABS: Hematocrit 41.2 % (37.0-47.0); Hemoglobin 13.7 g/dL (12.0-15.0); Mean Corpuscular HGB Conc 33.3 g/dl (32-36); Mean Corpuscular Hemoglobin 30.3 pg (26-34); Mean Corpuscular Volume 91.2 fl (80-100); Mean Platelet Volume 9.2 fl (7.4-10.4); Platelet Count Result 272 k/mm3 (150-375); Red Blood Count 4.52 M/mm3 (4.2-5.4); Red Cell Distribution Width 12.7 % (11.5-14.5); White Blood Count 9.3 K/mm3 (4.5-10.0)
[2024-08-18 16:00] LABS: Cholesterol 100 mg/dL (0-200); HDL Direct 35 mg/dL; Triglycerides 131 mg/dL (<150)
[2024-08-18 16:12] LABS: LDL Cholesterol Direct 39 mg/dL
[2024-08-18 16:16] LABS: Creatinine Urine 78.8 mg/dL
[2024-08-18 16:18] LABS: Vitamin D 25 Hydroxy 56.7 ng/mL
[2024-08-18 16:21] LABS: MALB Creatinine Ratio 9.3 mg/g (0-30); Microalbumin Urine Random 7.3 mg/L (0-16.7)
--- OUTSIDE RECORDS SUMMARY | 2024-08-18 16:21 | XMS_ITS | Clinical Summary ---
Author Organization [facility] Address [address] [place] [address] Care Team Providers Care Zoning Assistant Name Role Phone Marcelo Burnett MD Primary Care Provider [phone] Allergies No known active allergies Medications allopurinol (ZYLOPRIM) 100 mg tablet take 1 tablet by oral route every day 0 0 06/03/2014 Active sertraline (ZOLOFT) 50 mg tablet Take 1 tablet (50 mg total) by mouth daily 02/20/2023 Active Ozempic 2 mg/dose (8 mg/3 mL) pen injector injection INJECT 2 MG UNDER THE SKIN EVERY WEEK 01/07/2023 Active Jardiance 10 mg tablet Take 1 tablet (10 mg total) by mouth daily 01/07/2023 Active LORazepam (ATIVAN) 1 mg tablet Take 1 tablet (1 mg total) by mouth nightly at bedtime. 03/04/2023 Active valsartan (DIOVAN) 80 mg tablet Take 1 tablet (80 mg total) by mouth daily 02/19/2023 Active aspirin 81 mg enteric coated tablet Take 1 tablet (81 mg total) by mouth daily Active vit Q-D-rwfcgs-zinc -lutein 226-90-0.8-5 mg capsule Take by mouth Active cholecalciferol (VITAMIN D-3) 1,000 unit Take 1 tablet/capsu le (1,000 Units total) by mouth daily Active rosuvastatin (CRESTOR) 40 mg tablet Take 1 tablet (40 mg total) by mouth daily Active hydroCHLOROthia zide (HYDRODIURIL) 12.5 mg tablet Take 1 tablet (12.5 mg total) by mouth daily Active metFORMIN XR (GLUCOPHAGE XR) 500 mg 24 hr tablet Take 2 tablets (1,000 mg total) by mouth 02/19/2023 Active multivitamin tabletIndicatio ns:Vitamin Deficiency Prevention Take 1 tablet by mouth Active risperiDONE (RisperDAL) 3 mg tablet Take 1 tablet (3 mg total) by mouth daily Active temazepam (RESTORIL) 30 mg capsuleIndicati ons:Insomnia Take 1 capsule (30 mg total) by mouth nightly as needed for sleep Active cyanocobalamin (Vitamin B-12) 2,500 mcg tablet, sublingualIndic ations:Preventi on of Vitamin B12 Deficiency Activ e Active Problems Problem Noted Date Diagnosed Date Morbid obesity 07/29/2023 Morbid obesity with BMI of 40.0-44.9, adult 04/04 Hypertension associated with diabetes 04/15/2023 Hyperlipidemia associated with type 2 diabetes m ellitus 04/15/2023 Type 2 diabetes mellitus without complication Other nonrheumatic aortic valve disorders 2022 Encounters Date Type Department Care Team Description 08/10/2024 2:30 PM CDT Office Visit [facility] Cardiology at [address] [place] [address] Tyler Mcclure MD Hyperlipidemia associated with type 2 diabetes mellitus (HCC) (Primary Dx); Hypertension associated with diabetes (HCC); Other nonrheumatic aortic valve disorders; Morbid obesity (HCC) from Last 3 Months Surgical History Surgery Date Site/Laterality Comments HYSTERECTOMY CHOLECYSTECTOMY KNEE SURGERY SHOULDER SURGERY Medical History Medical History Date Comments Diabetes mellitus (HCC) Hypertension Bipolar 1 disorder (HCC) CHF (congestive heart failure) (HCC) Family History Medical History Relation Name Comments Heart attack Father Heart disease Father Heart attack Mother Heart disease Mother Colon cancer Sister 1 Relation Name Status Comments Brother Alive Father Mother Sister 1 Sister 2 Alive Social History Tobacco Use Types Packs/Day Years Used Date Smoking Tobacco: Never Passive Smoke Exposure: Past Smokeless Tobacco: Never Tobacco Cessation:Counseling Given: Not Answered Comments Unknown Sex and Gender Information Value Date Recorded Sex Assigned at Not on file 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 Gender Identity Not on file Sexual Orientation Not on file Obstetrics History Last Filed Vital Signs Vital Sign Reading Time Taken Comments Blood Pressure 112/70 08/10/2024 2:11 PM CDT Pulse 97 08/10/2024 2:11 PM CDT Temperature - - Respiratory Rate - - Oxygen Saturation 98% 08/10/2024 2:11 PM CDT Inhaled Oxygen Concentration - - Weight 98.4 kg (217 lb) 08/10/2024 2:11 PM CDT Height 158.8 cm (5' 2.5 ) 08/10/2024 2:11 PM CDT Body Mass Index 39.06 08/10/2024 2:11 PM CDT Plan of Treatment Health Maintenance Due Date Last Done Comments Albumin Creatinine Ratio, Urine 1946 Depression Screening 1946 Fall Risk Assessment 1946 Hemoglobin A1C 1946 Hepatitis C Screening 1946 Osteoporosis Screening-Bone Density Scan 1946 eGFR 1946 Dilated Eye Exam 1946 Foot Exam 1946 DTaP/Tdap/Td Vaccine (1 - Tdap) 1957 Hepatitis B Screening 1964 Zoster Vaccine (1 of 2) 1996 Well Visit 65+ 07/20/2011 Lipid Panel 12/16/2024 12/17/2023, 07/29/2023 Influenza Vaccine (Season Ended) 2025 03/12/2023, 03/05/2022, 03/14/2021, Additional history exists Pneumococcal vaccine 65+ Completed 023, 02/04/2017, 01/15/2016, Additional history exists Procedures Procedure Name Priority Date/Time Associated Diagnosis Comments LIPID PANEL Routine 12/17/2023 3:52 PM CDT from Last 3 Months or Most Recently Relevant to Health Maintenance Results * (ABNORMAL) Lipid panel (12/17/2023 3:52 PM CDT) SCRIBED Cholesterol, Total 86 0 - 200 EXTERNAL LAB SCRIBED HDL 34(A) 40 - 100 EXTERNAL LAB SCRIBED LDL <30 0 - 100 EXTERNAL LAB SCRIBED Triglycerides 175(A) 0 - 150 EXTERNAL LAB Blood us Historical Provider LAB BLOOD ORDERABLES Edit ed Result - Final EXTERNAL LAB from Last 3 Months or Most Recently Relevant to Health Maintenance Insurance [facility] MEDICARE ADVANTAGE [facility] Address: [facility] [address] [place] [address] Care Teams Zoning Assistant Relationship Specialty Start Date End Date Marcelo Burnett MD PCP - General Family Practice 01/13/23
--- OUTSIDE RECORDS SUMMARY | 2024-08-18 16:21 | XMS_ITS | Encounter Summary ---
Author Organization [facility] Facility Care Team Providers Care Bridal Service Sales And Management Name Role Phone Suzanne Lovelace MD Primary Care Provider + Mareclo Burnett MD Primary Care Provider [phone] Encounter Details Date Type Department Care Team (Latest Contact Info) Description 11/19/2015 Orders Only [facility] ProviderElfego MD [address] [place] [id number] Social History Tobacco Use Types Packs/Day Years Used Date Smoking Tobacco: Never Assessed Comments Unknown Sex and Gender Information Value Date Recorded Sex Assigned at Not on file 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 Historical Provider [facility] Final Result documented in this encounter Visit Diagnoses Not on filedocumented in this encounter Care Teams Bridal Service Sales And Management Relationship Specialty Start Date End Date Suzanne Lovelace MD [address] [place] [address] PCP - General 06/02/14 01/12/23 Marcelo Burnett MD [address] [place], [place] [id number] PCP - General Family Practice 01/13/23 documented as of this encounter
--- OUTSIDE RECORDS SUMMARY | 2024-08-18 16:21 | XMS_ITS | Referral Summary ---
Author Organization [address] Address [address] [place] [address] Care Team Providers Care Sounding Device Operator Name Role Phone Marcelo Burnett MD Primary Care Provider [phone] Encounters Date Type Department Care Team Description 08/10/2024 2:30 PM CDT Office Visit [facility] Cardiology at [address] [place] [address] Tyler Mcclure MD Hyperlipidemia associated with type 2 diabetes mellitus (HCC) (Primary Dx); Hypertension associated with diabetes (HCC); Other nonrheumatic aortic valve disorders; Morbid obesity (HCC) from Last 3 Months Allergies No known active allergies Medications allopurinol [...] mg total) by mouth daily Active vit H-X-uiglwr-zinc -lutein 226-90-0.8-5 mg capsule Take by mouth [...] complication Other nonrheumatic aortic valve disorders 2022 Social History Tobacco Use Types Packs/Day Years Used Date Smoking Tobacco: Never Passive Smoke Exposure: Past Smokeless Tobacco: Never Tobacco Cessation:Counseling Given: Not Answered Comments Unknown Sex and Gender Information Value Date Recorded Sex Assigned at Not on file 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
--- OUTSIDE RECORDS SUMMARY | 2024-08-18 16:21 | XMS_ITS | Continuity of Care Document ---
Author Organization [facility] Address [address] [place] [address] Phone Care Team Providers Care Residential Field Manager Name Role Phone Marilin Fofana Unavailable Unavailable Advance Directives Directive Yes / No Effective Date File Name No Information Encounters Encounter Description Practice Location Reason(s) For Visit Diagnoses Date Provider Providers Copied on Encounter [facility], [address], [place], [place], [id number], [place] tel:[phone] [facility] No Information Dec-[address] [facility] , [address], [place], [address], [place]. tel:[phone] Family History Family Member Type Diagnosis Age At Onset No Information Payers Payer name Insurance type Covered republican ID Authoriza tion(s) No Information Social History [...]
--- OUTSIDE RECORDS SUMMARY | 2024-08-18 16:22 | XMS_ITS | Data Portability ---
Author Organization [facility] [place] Address [address] [place] [address] Care Team Providers Care Bow Maker Machine Tender Name Role Phone ALECIABREA Primary Care Provider Assessment Encounter Date Assessment Date Assessment LastModified by Organization Details LastModified Time 12/29/2020 12/29/2020 everything seems to be healed ok to use ointment prn, f/u wwe [email or web address] Not available 12/29/2020 16:24:33 Plan of Treatment [...] further information , please contact me at [phone]. Thank you, CARMELINA Sneed 2020 021 [facility] Care Physician Referral Management, [address] [facility] [address], [place], [address], 13:46:43 Procedures None recorded. Surgeries None recorded. Imaging None recorded. Medication Orders Diflucan 200 mg tablet 2020 021 [email or web address] [facility][id number], [address], [place], [place], [id number], 10/28/202 4 14:20:06 clobetasol 0.05 % topical ointment [address] [facility]17577, [address] [place], [place], [id number], 4 14:19:57 Diflucan 200 mg tablet [address] [facility]97830, [address] [place], [place], [id number], 4 14:20:06 nystatin-tr iamcinolone 100,000 unit/gram-0 .1 % topical ointment [address] [facility]39901, [address] [place], [place], [id number], 4 14:20:21 nystatin-tr iamcinolone 100,000 unit/gram-0 .1 % topical ointment [address] [facility]96787, [address] [place], [place], [id number], 4 14:20:21 nystatin-tr iamcinolone 100,000 unit/gram-0 .1 % topical ointment 2020 [address]21 [address] [facility], [address], [place], [id number], 4 14:20:21 Diflucan 150 mg tablet [address] [facility] #95984, [address], [place], [id number], 1 11:17:12 Patient TargetsNo targets recorded. Patient InstructionsNo instructions recorded. Reason for Referral Urogynecologist Referral for Vaginitis Vulvar specialist for recurrent yeast Please call Melissa to schedule her for an appt. The referring provider wants the patient to see Elly Harding. I have attached the patient demographics, office notes, and lab results. If you have any questions or require further information, please contact me at [phone]. Thank you, CARMELINA Sneed Referring Physician: Jennifer Ovalle, RADIO ASSEMBLER, Encounter Date: 04/26/2021 Results Created Date Observation Date Name Description Value Unit Range Abnormal Flag Note LastModifiedBy Organization Detail LastModifiedTime 12/19/19 21 12/18/2020 VAGIN ITIS/ VAGIN OSIS, DNA PROBE nusrat sp. detection, direct probe Positi ve negati ve abnormal Not Available [facility] (Lab) [address], [place], [address], 12/19/2020 19:11:19 12/19/19 21 12/18/2020 VAGIN ITIS/ VAGIN OSIS, DNA PROBE gardnerella vag. detection, direct probe Negati ve negati ve Not Available [facility] (Lab) [address], [place], [address], 12/19/2020 19:11:19 12/19/19 21 12/18/2020 VAGIN ITIS/ VAGIN OSIS, DNA PROBE trichomonas vag. detection, direct probe Negati ve negati ve Not Available [facility] (Lab) [address] [place], [address], 12/19/2020 19:11:19 02/01/20 21 01/31/2021 VAGIN ITIS/ VAGIN OSIS, DNA PROBE nusrat sp. detection, direct probe Positi ve negati ve abnormal Not Available [facility] (Lab) [address] [place], [address], 02/01/2021 22:02:49 02/01/20 21 01/31/2021 VAGIN ITIS/ VAGIN OSIS, DNA PROBE gardnerella vag. detection, direct probe Negati ve negati ve Not Available [facility] (Lab) [address], [place], [address], 02/01/2021 22:02:49 02/01/20 21 01/31/2021 VAGIN ITIS/ VAGIN OSIS, DNA PROBE trichomonas vag. detection, direct probe Negati ve negati ve Not Available [facility] (Lab) [address], [place], [address], 02/01/2021 22:02:49 04/26/20 21 04/26/2021 MOBIL UNCUS MULIE RIS/C URTIS LI, RT-PC R, ONE SWAB nm bkr mobiluncus mulieris and mobiluncus curtisii by RT-PCR Negati ve Swab- 1 Vag/C erv Not Available [facility] (Lab) [address], [place], [address], 05/07/2021 05:03:00 04/26/20 21 04/26/2021 BACTE RIAL VAGIN OSIS PANEL RT-PC R, ONESW AB gardnerella vaginalis PCR Negati ve Swab- 1 Vag/C erv Not Available [facility] (Lab) [address] [place], [address], 05/07/2021 05:03:01 04/26/20 21 04/26/2021 BACTE RIAL VAGIN OSIS PANEL RT-PC R, ONESW AB atopobium vaginae PCR Negati ve Swab- 1 Vag/C erv Not Available [facility] (Lab) [address] [place], [address], 05/07/2021 05:03:01 04/26/20 21 04/26/2021 BACTE RIAL VAGIN OSIS PANEL RT-PC R, ONESW AB bacterial vaginosis associated bacteria 2 (bvab2) Negati ve Swab- 1 Vag/C erv Not Available [facility] (Lab) [address] [place], [address], 05/07/2021 05:03:01 04/26/20 21 04/26/2021 BACTE RIAL VAGIN OSIS PANEL RT-PC R, ONESW AB megasphaera species (type 1 and type 2) PCR Negati ve (Type1 ,Type2 ) Swab- 1 Vag/C erv Type1 :Nega tive Type2 :Nega tive. Not Available [facility] (Lab) [address] [place], [address], 05/07/2021 05:03:01 04/26/20 21 04/26/2021 BACTE RIAL VAGIN OSIS PANEL RT-PC R, ONESW AB lactobacillu s (bvpanel) PCR See Commen t Swab- 1 Vag/C erv L.cri spatu s: Negat daniel L.reginaldo senii : Negat daniel L.gas seri : Posit daniel L.ine rs : Posit daniel. Not Available [facility] (Lab) [address] [place], [address], 05/07/2021 05:03:01 04/26/20 21 04/26/2021 UROGE NITAL MYCOP LASMA /UREA PLASM A PANEL RT-PC R, ONESW AB nm bkr mycoplasma genitalium by RT-PCR Negati ve Swab- 1 Vag/C erv Not Available [facility] (Lab) [address] [place], [address], 05/07/2021 05:03:01 04/26/20 21 04/26/2021 UROGE NITAL MYCOP LASMA /UREA PLASM A PANEL RT-PC R, ONESW AB nm bkr mycoplasma hominis by RT-PCR Negati ve Swab- 1 Vag/C erv Not Available [facility] (Lab) [address] [place], [address], 05/07/2021 05:03:01 04/26/20 21 04/26/2021 UROGE NITAL MYCOP LASMA /UREA PLASM A PANEL RT-PC R, ONESW AB nm bkr ureaplasma urealyticum by RT-PCR Negati ve Swab- 1 Vag/C erv Not Available [facility] (Lab) [address], [place], [address], 05/07/2021 05:03:01 04/26/20 21 04/26/2021 YOON DA VAGIN ITIS PANEL RT-PC R, ONESW AB nusrat albicans PCR Negati ve Swab- 1 Vag/C erv Not Available [facility] (Lab) [address], [place], [address], 05/07/2021 05:03:02 04/26/20 21 04/26/2021 YOON DA VAGIN ITIS PANEL RT-PC R, ONESW AB nusrat tropicalis PCR Negati ve Swab- 1 Vag/C erv Not Available [facility] (Lab) [address] [place], [address], 05/07/2021 05:03:02 04/26/20 21 04/26/2021 YOON DA VAGIN ITIS PANEL RT-PC R, ONESW AB nusrat parapsilosis PCR Negati ve Swab- 1 Vag/C erv Not Available [facility] (Lab) [address] [place], [address], 05/07/2021 05:03:02 04/26/20 21 04/26/2021 YOON DA VAGIN ITIS PANEL RT-PC R, ONESW AB nusrat glabrata PCR Positi ve abnormal Swab- 1 Vag/C erv Not Available [facility] (Lab) [address] [place], [address], 05/07/2021 05:03:02 04/26/20 21 04/26/2021 YOON DA JONATHAN I BY RT-PC R nusrat krusei by RT-PCR Negati ve Swab- 1 Vag/C erv Not Available [facility] (Lab) [address] [place], [address], 05/07/2021 05:03:02 03/22/20 22 03/22/2022 ashok DEGROOT bilat eral No observ ation record ed. [email or web address], [place], [address], 05/20/2023 17:30:52 Result Notes None recorded. Problems Name Problem SNOMED Code Status Onset Date Resolution Date Notes Provider Name and Address Organization Details Recorded Time Screenin g for malignan t neoplasm of cervix Completed 201012/18/2020 Screening for malignant neoplasms of the cervix;Re corded Elsewhere : No Locati on: [facility] So urce: EHR Chron ic: N Practic e ID: [id number] Bill able Time: 02:00:[address] [facility] 14:44:12 Vaginiti s and vulvovag initis Completed 201012/18/2020 Vaginitis ;Recorded Elsewhere : No Locati on: [facility] So urce: EHR Chron ic: N Practic e ID: [id number] Bill able Time: 02:00:[address] [facility] 14:44:[address] Concept Completed 201812/18/2020 Encntr for cotton washer exam (general) (routine) w/o abn findings; Recorded Elsewhere : No Locati on: [facility] So urce: EHR Chron ic: N Practic e ID: [id number] Bill able Time: 10:30:00 AM [facility] 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 14:44:37 Adult health examinat ion Completed 201012/18/2020 Routine Medical Exam;[place] rded Elsewhere : No Locati on: [facility] So urce: EHR Chron ic: N Practic e ID: [id number] Bill able Time: 02:00:00 PM Bell nix [facility] 14:44:17 Abscess of vulva 40281058 Completed 201812/18/2020 Abscess of vulva;Rec orded Elsewhere : No Locati on: [facility] So urce: EHR Chron ic: N Practic e ID: [id number] Bill able Time: 10:30:00 AM Bell nix [facility] 14:44:35 Screenin g for malignan t neoplasm of rectum Completed 201012/18/2020 Screening for malignant neoplasms of the rectum;Re corded Elsewhere : No Locati on: [facility] So urce: EHR Chron ic: N Practic e ID: [id number] Bill able Time: 02:00:00 PM Bell nix [facility] 14:44:19 Lichen simplex chronicu s [id number] Completed 201812/18/2020 Lichen simplex chronicus ;Recorded Elsewhere : No Locati on: [facility] So urce: EHR Chron ic: N Practic e ID: [id number] Bill able Time: 04:30:00 PM Bell nix [facility] 14:44:32 Speciali d medical examinat ion Completed 201012/18/2020 Gynecolog ical Examinati on;Record ed Elsewhere : No Locati on: [facility] So urce: EHR Chron ic: N Practic e ID: [id number] Bill able Time: 02:00:00 PM Bell nix [facility] 14:44:23 Problem Notes None recorded. Procedures Surgical History Date Name Laterality Status Provider Name and Address Organization Details Recorded Time 03/22/20 Date of Last Mammogram completed Aleyda Gagnon [facility] 03/01/2024 14:21:29 02/19/20 20 Most Recent Bone Density completed Aleyda Gagnon [facility] 03/01/2024 14:21:33 05/05/19 13 [facility] 09/24/2019 17:16:09 05/05/19 13 [facility] 09/24/2019 17:16:31 05/14/19 12 completed [facility] 12/18/2020 14:49:15 02/08/20 11 Date of Last Pap Smear completed [facility] 12/18/2020 14:49:29 05/05/19 11 completed [facility] 12/18/2020 14:51:03 05/05/19 00 procedure on knee completed [facility] 09/24/2019 17:17:14 05/05/18 87 Total Hysterectomy completed [facility] 09/24/2019 17:15:14 05/05/18 77 Tubal Ligation completed [facility] 09/24/2019 17:14:52 Imaging Results Imaging Date Name Status LastModified by Organiz ation Details LastModified Time 03/22/2022 MAMMO, screening, bilateral completed [address], [place], [address], 05/20/2023 17:30:52 Procedure Notes None recorded. Medical Equipment None Reported. Allergies No known drug allergies Medications Name Sig Start Date Stop Date Status Note LastModified by Organization Details LastModified Time metformin 500 mg tablet take 1 tablet by oral route 2 times every day with morning and evening meals 12/18 completed Prescrib ed Elsewher e: Yes Loca tion: [facility] odify By: ganga Mahmood ncounter DateTime : [...] Prescrib ed Elsewher e: Yes [facility] By: danni fisher DateTime : 02/03/20 [...] Prescrib ed Elsewher e: Yes Loca tion: [facility] odify By: richard Mahmood ncounter DateTime : [...] Prescrib ed Elsewher e: Yes Loca tion: [facility] odify By: danni fisher DateTime : 08/06/19 [...] Elsewher e: No Locat ion: [place] [facility] odify By: ganga maresjohn DateTime : 09/03/19 14 11:00:00 AM Not Available Not Available Not Available Cipro 500 mg tablet take 1 tablet by oral route every 12 hours 03/08 completed Prescrib ed Elsewher e: No Locat ion: [facility] odify By: ganga mares DateTime : 09/03/19 [...] Prescrib ed Elsewher e: Yes [facility] By: ganga mareser DateTime : 07/01/19 14 10:15:00 AM Not Available Not Available Not Available ketoconaz ole 2 % topical cream apply by topical route every day to the affected area(s) 03/08 completed Prescrib ed Elsewher e: No Locat ion: [facility] odify By: ganga mares DateTime : 09/03/19 14 11:00:00 AM Not Available Not Available Not Available Terazol 7 0.4 % vaginal cream insert 1 applicat orful by vaginal route every day for 7 days at bedtime 02/11 completed Prescrib ed Elsewher e: No Locat ion: [facility] odify By: lizz tz Encou nter DateTime [...] Elsewher e: No Locat ion: [facility] odify By: gmedical Encount er DateTime : 07/07/19 14 03:11:30 PM Not Available Not Available Not Available valsartan 40 mg tablet TAKE 2 TABLETS BY MOUTH DAILY 12/18 completed Not Available Not Available Not Available rosuvasta tin 10 mg tablet take 1 tablet by oral route every day 12/18 completed Prescrib ed Elsewher e: Yes [facility] By: butchose Timoteo ncounter DateTime : [...] Elsewher e: Yes Loca tion: [facility] odify By: danni fisher DateTime : 02/06/20 11 02:00:00 PM Not Available Not Available Not Available Spiriva with [employer] r 18 mcg and inhalatio n capsules inhale 1 capsule by inhalati on route every day 03/08 completed Prescrib ed Elsewher e: Yes Loca tion: [facility] odify By: butchose E ncounter DateTime : 10/07/19 13 02:45:00 PM Not Available Not Available Not Available Januvia 100 mg tablet take 1 tablet by oral route every day 06/16 completed Prescrib ed Elsewher e: Yes Loca tion: [facility] odify By: edilma z Sabino fisher DateTime : 03/08/20 19 [...] Updated DateTime 12/18/2020 157.48 cm 51.8 kg/m2 693518.6 4 g 137 mm[Hg] 82 mm[Hg] Bell Marsh [facility] 16:46:23 Date Recorded Body height Body mass index (BMI) Body weight Systolic blood pressure Diastolic blood pressure Provider Name and Address Organization Details Last Updated DateTime 12/29/2020 157.48 cm 51.8 kg/m2 152703.6 4 g 138 mm[Hg] 75 mm[Hg] Felisha Bonner [facility] 16:09:32 Date Recorded Body height Body mass index (BMI) Body weight Provider Name and Address Organization Details Last Updated DateTime 01/31/2021 157.48 cm 52.9 kg/m2 944991.19 g Eloina [facility] 01/31/2021 11:41:54 Date Recorded Systolic blood pressure Diastolic blood pressure Provider Name and Address Organization Details Last Updated DateTime 01/31/2021 163 mm[Hg] 80 mm[Hg] Jennifer Ovalle, [facility] [address], [place], [address], [facility] 01/31/2021 12:09:52 Date Recorded Body height Body mass index (BMI) Body weight Provider Name and Address Organization Details Last Updated DateTime 04/26/2021 157.48 cm 52.3 kg/m2 221402.42 g Eloina [facility] 04/26/2021 10:57:21 Date Recorded Systolic blood pressure Diastolic blood pressure Provider Name and Address Organization Details Last Updated DateTime 04/26/2021 132 mm[Hg] 70 mm[Hg] Jennifer Ovalle, [facility] [address], [place], [address], [facility] 04/26/2021 11:07:31 Date Recorded Body height Body mass index (BMI) Body weight Systolic blood pressure Diastolic blood pressure Provider Name and Address Organization Details Last Updated DateTime 03/01/2024 157.48 cm 41.9 kg/m2 985717.6 5 g 96 mm[Hg] 62 mm[Hg] Aleyda Gagnon [facility] 14:19:40 Social History Question Answer Notes LastModified by Organizat ion Details LastModified Time Tobacco Smoking Status Never Smoker Felisha nix, [facility] 09/24/2019 17:13:58 What Is Your Level Of Alcohol Consumption? Occasional [email or web address] Information not available 09/24/2019 Are You Blind Or Do You Have Difficulty Seeing? No [email or web address] Information not available 12/29/2020 Are You Deaf Or Do You Have Serious Difficulty Hearing? No [email or web address] Information not available 12/29/2020 What Type Of Diet Are You Following? REGULAR [email or web address] Information not available 12/29/2020 Do You Or Have You Ever Used E-cigarettes Or Vape? Never Used Electronic Cigarettes Information not available 09/24/2019 What Was The Date Of Your Most Recent Tobacco Screening? 12/29/2020 [email or web address] Information not available 12/29/2020 Do You Or Have You Ever Used Smokeless Tobacco? Never Used Smokeless Tobacco Information not available 09/24/2019 How Much Tobacco Do You Smoke? No Information not available 09/24/2019 Sex: Unknown Functional Status Question Answer Note LastModified by Organizat ion Details LastModified Time Are you able to walk? YESWOREST [email or web address] Information not available 12/29/2020 What is your exercise level? Occasional [email or web address] Information not available 09/24/2019 Mental Status None recorded. Family History Relationship Description Onset Age of this Age Resolved Age Notes LastModified by Organization Details LastModified Time Sister Malignant tumor of colon [email or web address] Not available 09/23 17:12:51 Paternal Grandmother Malignant tumor of colon [email or web address] Not available 09/23 17:12:51 Father Myocardial infarction [email or web address] Not available 09/03 17:13:18 Maternal Grandmother Myocardial infarction [email or web address] Not available 09/03 17:13:18 Mother Heart disease [email or web address] Not available 09/23 17:13:31 Medical History Condition Response Diabetes Y Heart Problems Y Hepatitis/Liver Disease Y Depression/ depression Y High Cholesterol Y Hypertension Y Gynecological History Statement/Question Response [...] ICD10 Code Diagnosis Note [id number] Patt Scales [facility] [address],[place] [address] 09/24/2019 15:54:58 09/28/2019 14:22:50 Candidiasis of skin 57311018 B37.2 x 1 week and then as needed Gynecologi c examination 68299918 Z01.419 [id number] Bernadette Petros [place] [address],[place] [address] 12/18/2020 16:40:06 12/19/2020 17:46:34 Candidiasis of skin 63058265 B37.2 Discussed use of mild soap like dove or ivory, cotton underwear w/out dye, hypoallerg enic detergent, wipe from front to back, avoid tub baths, keep perineum clean and dry, d/c use of baby wipes. Encouraged daily intake of yogurt or womens health probiotic. Internal and external affirm collected. Will treat for likely yeast. RTC in 1-2 weeks to re-evaluat e. [id number] [facility] [address],[place] [address] 12/29/2020 15:57:47 12/31/2020 16:28:59 Vaginitis 79379137 N76.0 [id number] [facility] [address],[place] [address] 01/31/2021 11:28:42 01/31/2021 12:29:28 Vaginitis 11873968 N76.0 Issues with recurrent yeast infections likely [...] this patient s visit, including available hand wafer production worker upon arrive, temperatur e check and being asked a series of screening questions. All staff wore face coverings during this encounter, as well as provided additional cleaning and sanitizing of all surfaces, including countertop s, pens, chairs, door handles, light switches, etc, prior to and following the patient s visit. [id number] Jennifer Ovalle , [facility] [address] [address] 04/26/2021 10:46:39 04/26/2021 13:05:50 Vaginitis 64331369 N76.0 Suspect yeast infection todayWe discussed increased risk of more frequent yeast infection with DM & postmenopa usal status also likely another contributi ng factor. Today, [facility]We discussed the use [...] this patient s visit, including available hand wafer production worker upon arrive, temperatur e check and being asked a series of screening questions. All staff wore face coverings during this encounter, as well as provided additional cleaning and sanitizing of all surfaces, including countertop s, pens, chairs, door handles, light switches, etc, prior to and following the patient s visit. Herniation of rectum into vagina 315274193 N81.6 Declines referral to urogyn for evaluation of rectocele. Does not feel it effects her bowel habits or causes other issues.Pre fers to monitor. [id number] Raza Queen MD [place] [address] [address] 03/01/2024 13:53:25 03/01/2024 15:04:37 Postcoital bleeding 82483559 N93.0 This patient is a 78-year-ol d [...] Saldaña Member ID Guarantor Name 12/18/2020 1 [facility] (MEDICARE REPLACEMENT/A DVANTAGE - PPO) [id number] Melissa Rohan Ricci [id number] Melissa Madrigal Radhames 12/18/2020 2 [place] Melissa Madrigal Ricci [id number] Melissa Madrigal Ricci 12/29/2020 1 [facility] (MEDICARE REPLACEMENT/A DVANTAGE - PPO) [id number] Melissa Rohan Ricci [id number] Melissa Rohan Ricci 12/29/2020 2 [place] Melissa Madrigal Ricci [id number] Melissa Rohan Ricci 01/31/2021 1 [facility] (MEDICARE REPLACEMENT/A DVANTAGE - PPO) [id number] Melissa Rohan Ricci [id number] Melissa Rohan Ricci 01/31/2021 2 [place] Melissa Rohan Ricci [id number] Melissa Rohan Ricci 04/26/2021 1 [facility] (MEDICARE REPLACEMENT/A DVANTAGE - PPO) [id number] Melissa Ricci [id number] Melissajulia Ricci 03/01/2024 1 [facility] (MEDICARE REPLACEMENT/A DVANTAGE - PPO) [id number] Melissa Ricci [id number] Melissa Ricci Notes Date Note Type Note Provider Name and Address Organization Details Recorded Time 12/18/2020 text/html Bumps 1 month ag o on her labia. [place] like paper cuts. Itching and irritation. Bernadette nix, [facility] 01/02/2021 22:06:57 12/29/2020 text/html f/u yeast infect ion diflucan and nystatin cream worked well, no pain no complaints Patt Scales, LISA [address], [place], [address], [facility] 12/29/2020 16:24:47 01/31/2021 text/html Vaginal/Vulvar ProblemReported bypatient.Notes:Here today for recurrent yeast infection issues.Has DM2 & blood sugars being managed by dubbing machine operator.Get' s yeast infections more easily since HgbA1c [...] abd pain ASHLEY Isbell-SONNY [address], [place], [address], [facility] 01/31/2021 12:15:09 04/26/2021 text/html Vaginal/Vulvar ProblemReported [...] down there. RADHA Isbell [address], [place], [address], [facility] 04/26/2021 13:02:45 03/01/2024 text/html This patient [...] observe. Raza Queen MD [address], [place], [address], [facility] 03/01/2024 14:58:46 OBGyn Episode Ob Episode Information Episode Created Date Number of Fetuses Patient Bloodtype Patient rh Status Prepregnancy Weight lbs Domestic Partner Domestic Partner Phone Father Name [employer]otive [employer] Counter Assistant Status 09/24/19 20 1 CLOSED Fetus Data First Name Last Name Admitted to NICU Weight (g) Sex Living Outcome Pediatric Complications Fetus ID Race Codes Race Delivery Type , Spontane ous 1669 Michael Calculation Initial Micahel Date Initial Exam Date Initial Exam Provider [...] Domestic Partner Domestic Partner Phone Father Name [employer] Counter Assistant Status 09/24/19 20 1 CLOSED Fetus Data [...] Domestic Partner Domestic Partner Phone Father Name [employer] Counter Assistant Status 09/24/19 20 1 CLOSED Fetus Data [...] Domestic Partner Domestic Partner Phone Father Name [employer] Counter Assistant Status 09/24/19 20 1 CLOSED Fetus Data [...]
--- OUTSIDE RECORDS SUMMARY | 2024-08-18 16:22 | XMS_ITS | Clinical Summary ---
Author Organization [facility] [employer] Address [address] [place] [address] Care Team Providers Care Turning Machine Set Up Operator Name Role Phone Suzanne Lovelace MD Primary Care Provider [phone] Source Comments [facility] [employer],non-owned Affiliates and Associated Physician Practices is amultiple site organization consisting of ambulatory clinics and hospital sitesin [place], [place], [place] and [place]. This disclosure is being madepursuant to the Care Everywhere program and may not contain all information available regarding this patient. Last updated 18.[facility] [employer] Allergies No known active allergies Social History Tobacco Use Types Packs/Day Years Used Date Smoking Tobacco: Never Assessed Comments Unknown Sex and Gender Information Value Date Recorded Sex Assigned at Not on file Legal Sex Female 2:42 PM CDT Gender Identity Not on file Sexual Orientation Not on file Plan of Treatment Health Maintenance Due Date Last Done Comments BONE DENSITY TESTING 1945 HEPATITIS C SCREENING 07/14/1964 DTAP/TDAP/TD VACCINES (1 - Tdap) 1965 PNEUMOCOCCAL VACCINE 50+ (1 of 1 - PCV) 1996 ZOSTER VACCINE (1 of 2) 1996 Respiratory Syncytial Virus (RSV) Vaccine Pt: or over 60 yrs (1 - 1-dose 75+ series) 2021 COVID-19 VACCINE ( - 2023-2 5 season) 2024 DEPRESSION SCREENING 05/05/2024 MEDICARE AWV CALENDAR YEAR 2024 INFLUENZA VACCINE (Season Ended) 2025 HEPATITIS B VACCINE Aged Out No longe r eligible based on patient's age to complete this topic HIB VACCINE Aged Out No longer eligi ble based on patient's age to complete this topic HPV VACCINE Aged Out No longer eligi ble based on patient's age to complete this topic MENINGOCOCCAL (Group B) VACC INE SHARED DECISION-MAKING Aged Out No longer eligibl e based on patient's age to complete this topic MENINGOCOCCAL GROUPS A/C/Y/W VACCINE Aged Out No longer eligible b ased on patient's age to complete this topic Insurance [id number] MANAGED MEDICARE ADV Care Teams Turning Machine Set Up Operator Relationship Specialty Start Date End Date Suzanne Lovelace MD [address] [facility] [address] [place] [address] PCP - General Family Medicine 12/04/16
--- OUTSIDE RECORDS SUMMARY | 2024-08-18 16:22 | XMS_ITS | Clinical Summary ---
Author Organization [facility] Address [address] [place] [address] Phone Care Team Providers Care Paste Mixer Name Role Phone Unavailable Primary Care Provider Unavailabl e Medications risperiDONE (RISPERDAL) 3 MG tablet 1 tab/cap [...] 1 tab/cap bid PRN 0 01/14/2016 Active hydroCHLOROthiaz myah (HYDRODIURIL) 12.5 MG tablet 1 tab/cap qday [...] (07/18/2018): Converted unresolved ICD9, potential mismatch. Immunizations Immunization Administration Dates Next Due Influenza TIV (IM) [...] at Not on file Legal Sex Female 8:34 AM [facility] Gender Identity Not on file Sexual Orientation [...]
--- OUTSIDE RECORDS SUMMARY | 2024-08-18 16:22 | XMS_ITS | Patient Health Record ---
Author Organization [facility] [employer] Address [address] [facility] [address] [place] [address] Care Team Providers Care Tour Narrator Name Role Phone Marcelo Burnett MD Primary Care Provider Nicolette Rucker Unavailable [phone] Rhina Hernandez Unavailable [phone] Migration, Provider Unavailable Unavailable Allergies No Known Allergies Results Component Value Reference Range Notes UDT Reviewed date:08/18/2024 03:38:33 PM Interpretation: Performing Lab: Notes/Report: THC N 0 - 50 ng/ml Cocaine N 0 - 300 ng/ml Amphetamine N 0 - 1000 ng/ml Buprenorphine (BUP) N 0 - 10 ng/ml Secobarbital (Bar) N 0 - 300 ng/ml Oxazepam (BZO) P 0 - 300 ng/ml 3-iyrmvuwudm-8,0-qxpjmdbb-7,3-diphenylpyrrolidine (MAT P) N 0 - 300 ng/ml Methamphetamine (MET) N 0 - 1000 ng/ml Methylenedioxymethamphetamine (MDMA) N 0 - 500 ng/ml Morphine (MOP 300/[id number]) N 0 - 300 ng/ml Methadone (MTD) N 0 - 300 ng/ml Phencyclidine (PCP) N 0 - 25 ng/ml Nortriptyline (TCA) N 0 - 1000 ng/ml Oxycodone N 0 - 300 ng/ml x N 0 - 300 ng/ml UDT Reviewed date:02/10/2024 01:30:17 PM Interpretation: Performing Lab: Notes/Report: THC n 0 - 50 ng/ml Cocaine n 0 - 300 ng/ml Amphetamine n 0 - 1000 ng/ml Buprenorphine (BUP) n 0 - 10 ng/ml Secobarbital (Bar) n 0 - 300 ng/ml Oxazepam (BZO) p 0 - 300 ng/ml 1-grclnjuush-0,7-azbokdgf-0,3-diphenylpyrrolidine (MAT P) n 0 - 300 ng/ml Methamphetamine (MET) n 0 - 1000 ng/ml Methylenedioxymethamphetamine (MDMA) n 0 - 500 ng/ml Morphine (MOP 300/YNE0673) n 0 - 300 ng/ml Methadone (MTD) [...] K2 (MK4) 100 MCG TABLET *Reorder from [employer] for eRx and Interaction Alerts* 07/30/2023 Active hydroCHLOROthiazide 12.5 MG Oral 07/30/2023 Active Valsartan 80 MG Oral 07/30/2023 Act daniel Ozempic (2 MG/DOSE) 8 MG/3ML Subcutaneous *Reorder from [employer] for eRx and Interaction Alerts* 07/30/2023 Active Vitamin B 12 Active metFORMIN HCl ER 500 MG Oral 07/30/2023 Active Multivitamin Adults Oral 07/30/2023 Active Jardiance 10 MG Oral 07/30/2023 Act daniel Allopurinol 100 MG Oral 07/30/2023 Active Rosuvastatin Calcium 40 MG Oral 07/30/2023 Active risperiDONE 1 MG 1 tablet Orally Once a day for 90 days Active Temazepam 30 MG 1 capsule at bedtime Oral Once a day for 90 days 08/18/2024 Active LORazepam 1 MG 1 tablet Oral Once a day for 90 days 08/18/2024 Active Sertraline HCl 50 MG 1 tablet Oral Once a day for 90 days Active Social History Tobacco Use: Social History [...] NoDo you have a medical power of regulatory attorney?: No Social History Substance UseDo you or [...] NoDo you have a medical power of regulatory attorney?: No Social History Substance UseDo you or [...] NoDo you have a medical power of regulatory attorney?: No Social History Substance UseDo you or [...] NoDo you have a medical power of regulatory attorney?: No Problems Problem Type SNOMED Code ICD Code Onset Dates Problem Status W/U Status Risk Notes Problem Bipolar II disorder (21092020) Bipolar II disorder (F31.81) 07/30/2023 Active confirmed Problem Chronic insomnia (269863828) Chronic insomnia (F51.04) Active confirmed Vital Signs Heart Rate 95 /min 08/18/2024 Height-cm 157.48 cm 08/18/2024 Blood pressure diastolic 82 mm Hg 08/18/2024 Weight-kg 97.98 kg 08/18/2024 Height 62.00 in 08/18/2024 Blood pressure systolic 130 mm Hg 08/18/2024 Weight 216 lbs 08/18/2024 BMI 39.5 kg/m2 08/18/2024 Encounters Encounter Location Date [facility] [place] [address] [facility] [address] [place] [address] 08/18/2024 Nicolette Graves Chronic insomnia F51.04 ; Encounter for screening for cardiovascular disorders Z13.6 ; Encounter for screening for depression Z13.31 and Bipolar II disorder F31.81 [facility] [place] [address] [facility] [address] [place] [address] 10/30/2023 Rhina Woloszynepranay Bipolar II disorder F31.81 and Chronic insomnia F51.04 [facility] [address] [address] 02/10/2024 Rhina Woloszynek Bipolar II disorder F31.81 and Chronic insomnia F51.04 [facility] [address] [place] [address] 05/21/2024 Nicolette Graves Bipolar II disorder F31.81 and Chronic insomnia F51.04 [facility] [place] [address] [facility] [address] [place] [address] 09/20/2023 Provider Migration [facility] [place] [address] [facility] [address] [place] [address] 09/21/2023 Provider Migration [facility] [address] [facility] [address] [place] [address] 02/10/2024 Rhina Hernandez [facility] [place] [address] [facility] [address] [place] [address] 04/26/2024 Nicolette Graves Bipolar II disorder F31.81 [...] sertraline 50 mg daily for mood stabilization Risperidone-in duced tremor - Patient reports shakiness in the [...] concerns arise or issues with medication changes 08/18/2024 Chronic insomnia (ICD-10 - F51.04) Long-Term Risks of Benzodiazepines Benzodiazepines are commonly prescribed for anxiety, insomnia, and seizures, but their long-term use is associated with several significant risks, particularly in older adults. - Chronic benzodiazepine use can lead to physical and psychological dependence. - Withdrawal symptoms include rebound anxiety, insomnia, agitation, tremors, and, in severe cases, seizures. - Tapering is often required to prevent withdrawal complications. - Long-term use is linked to memory problems, reduced attention, and delayed thinking/reaction s. - Some studies suggest an increased risk of dementia, though causality remains debated. - Benzodiazepines cause sedation, impaired coordination, and muscle weakness, significantly increases fall risk. This can be especially dangerous in those on blood thinners and with medical conditions such as osteoporosis - The elderly are particularly vulnerable due to decreased metabolism and clearance of benzodiazepines, leading to prolonged sedation and enhanced adverse effects. - Increased sensitivity to cognitive impairment, delirium, and paradoxical reactions (e.g., agitation, aggression). 10/30/2023 Chronic insomnia (ICD-10 - F51.04) cont [...] options, she does not want to decrease further/change , is satisfied as is, review r/b/se f/u [...] in future may decrease to 30 day 02/10/2024 Chronic insomnia (ICD-10 - F51.04) cont temazepam 30mg qhs practice good sleep hygiene 08/18/2024 Encounter for screening for cardiovascular disorders (ICD-10 - Z13.6) 05/21/2024 Chronic insomnia (ICD-10 - F51.04) Bipolar disorder - Patient reports feeling even, no depressive or manic episodes Plan: - Continue sertraline 50 mg daily for mood stabilization Risperidone-in duced tremor - Patient reports shakiness in the [...] concerns arise or issues with medication changes 08/18/2024 Bipolar II disorder (ICD-10 - F31.81) 08/18/2024 Encounter for screening for depression (ICD-10 - Z13.31) 08/18/2024 Other Patrick Storm, a patient with a history of depression, anxiety, and weight issues, presents for follow-up with improved mood, weight loss, and stable medical conditions. Depression and Anxiety Assessment: Patient reports improved mood with no recent episodes of depression. Current medication regimen includes Risperdal (recently decreased dose), lorazepam, and temazepam. No adverse effects such as shaking reported from the Risperdal dose reduction. Sleep and appetite are reported as good. Plan: - Continue current medication regimen: - Lorazepam 1 tablet nightly - Temazepam 30 mg nightly - Risperdal at current reduced dose - Refill lorazepam prescription - Advised patient about fall risk associated with temazepam use, especially if getting up at night - Follow-up appointment scheduled in 3 months Weight Management Assessment: Patient reports significant weight loss from 286 lbs to 216 lbs since starting Contrave. This weight loss has likely contributed to improvements in blood pressure and blood sugar levels. Plan: - Continue current weight management approach, including Contrave Hypertension Assessment: Patient reports well-controlle d blood pressure, with recent readings of 120/80 mmHg. Recent cardiology follow-up was satisfactory, with next appointment scheduled in 6 months. Plan: - Continue current management - Patient to follow up with [facility]naissance man as scheduled in 6 months Diabetes Mellitus Assessment: Patient reports improved glycemic control with recent A1c of 5.4%, likely associated with weight loss. Plan: - Continue current diabetes management 02/10/2024 Other Plan Of Treatment Next Appt Details Provider Name:Nicolette pride, 11/17/2024 02:00:00 PM, [address], [facility] [address], [place], [address], Insurance Providers Payer Name Payer Address Payer Phone Subscriber Number Group Number Insured Name Patient Relationship to Insured Coverage Start Date Coverage End Date [employer] Medicare Replacement/ Advantage - Hmo [address] [address] [place] [address] [id number] PATRICK STORM Self - patient is the insured [place] [address] [place] [address] [id number] PATRICK STORM Self - patient is the insured Medical (General) History Medical History History ICD Code Problems: Bipolar II disorder Chronic insomnia hypertension gout diabetes type II hyperlipidemia fatty liver Surgical History Surgery Date(Month/Year) Hysterectomy (61386) Cataract surgery (13270) Removal of gallbladder (65429) Colectomy (29292) eye surgery 10/06/2023
[2024-08-18 17:17] LABS: Alanine Aminotransferase 23 U/L (6-35); Albumin Level 4.3 g/dL (3.5-5.1); Alkaline Phosphatase 72 U/L (38-126); Anion Gap 14 mmol/L (4-12); Aspartate Amino Transferase 34 U/L (14-36); Blood Urea Nitrogen 11 mg/dL (7-17); Calcium 9.7 mg/dL (8.4-10.2); Carbon Dioxide 21 mmol/L (22-30); Chloride 104 mmol/L (98-107); Estimated Glomerular Filt Rate > 60; Glucose 138 mg/dL (65-110); Potassium 3.9 mmol/L (3.4-5.0); Sodium 139 mmol/L (137-145)
[2024-08-18 17:40] LABS: Hemoglobin A1C 5.5 % (<5.7)
== END 2024-08-18 15:05 | disposition home or self-care (01) ==
PROVIDERS: PCP Family Medicine; Visit Provider Internal Medicine Endocrinology, Diabetes & Metabolism
DX: E11.65 Type 2 diabetes mellitus with hyperglycemia (principal); E78.5 Hyperlipidemia, unspecified; E53.8 Deficiency of other specified B group vitamins; E55.9 Vitamin D deficiency, unspecified
CPT/HCPCS: 36415; 80053; 80061; 82043; 82306; 82607; 83036; 84443; 85027

== ENCOUNTER 2024-10-27 13:40 | Outpatient (CLI) | payer MEDICARE, SELFPAY ==
--- NOTE | ~2024-10-27 | DEXA_ITS ---
Bone Density Report Name: PATRICK STORM Age: 79 Sex: Female Ethnicity: White Date of : 1945 Indication: postmenopausal; screening for osteoporosis; height loss; hysterectomy; Referring Provider: KRISS CHASE Study: Bone densitometry was performed. Exam Date: October 27, 2024 Accession number: [id number] Bone Density: Region BMD T-score Z-score Classification AP Spine(L1-L4) 1.215 1.5 4.1 Normal Femoral Neck (Left) 0.813 -0.3 1.9 Normal Total Hip (Left) 1.027 0.7 2.7 Normal Femoral Neck (Right) 0.955 1.0 3.2 Normal Total Hip (Right) 1.078 1.1 3.1 Normal Total Hip Mean 1.052 0.9 2.9 Normal World Health Organization criteria for BMD impression classify patients as: Normal (T-score at or above -1.0), Osteopenia (T-score between -1.0 and -2.5), or Osteoporosis (T-score at or below -2.5). 10-year Fracture Risk: FRAX not reported because: All T-scores for Spine Total, Hip Total, Femoral Neck at or above -1.0 Previous Exams: Region Exam Age BMD T-score BMD Change BMD Change Date g/cm2 vs Baseline vs Previous Total Hip(Left) 10/27/2024 79 1.027 0.7 0.010 (1.0%)# 0.010 (1.0%)# 02/19/2020 74 1.017 0.6 Total Hip(Right) 10/27/2024 79 1.078 1.1 -0.050 (-4.5%) -0.050 (-4.5%) 02/19/2020 74 1.128 1.5 *Denotes significance at 95% confidence level, LSC for Total Hip = 0.027 g/cm2 # Denotes dissimilar scan types or analysis methods Clinical Information Provided by Patient: Has used the following medications: Vitamin D, Calcium Has the following medical conditions: Hysterectomy Patient maximum height was 63 Menopause Age: 45 No regular weight bearing exercise Drinks caffeinated beverages Onset of menses at age 12 Number of children 1 Impression: The patient has normal bone mass. No significant bone loss was observed. Discussion: BONE DENSITY IS ABOVE THE MINIMUM DESIRABLE LEVEL AT ALL SKELETAL SITES TESTED. This patient?s bone mineral density is above the minimum desirable level (T-score -1.0 or better) at all sites measured. The patient should follow a healthful lifestyle (good nutrition with adequate calcium and vitamin D, and appropriate weight-bearing exercise). Follow-Up: Consider repeating this study in 5 years or sooner if there is some new clinical indication. Reported by: SAMANTHA on 10/27/2024 2:13:00 PM. Reviewed, dictated and finalized at location A.
== END 2024-10-27 13:41 | disposition home or self-care (01) ==
LOC: ANHIMG 13:41
PROVIDERS: PCP Family Medicine; Visit Provider Family Medicine
DX: Z78.0 Asymptomatic menopausal state (principal)
CPT/HCPCS: 77080

== ENCOUNTER 2025-02-21 15:33 | Outpatient (CLI) | payer MEDICARE, SELFPAY ==
[2025-02-21 15:57] LABS: Hematocrit 42.6 % (37.0-47.0); Hemoglobin 14.1 g/dL (12.0-15.0); Immature Granulocyte Percent A 0.4 % (0-0.5); Lymphocytes Absolute Auto 2.79 K/mm3 (0.9-3.2); Mean Corpuscular HGB Conc 33.1 g/dl (32-36); Mean Corpuscular Hemoglobin 30.6 pg (26-34); Mean Corpuscular Volume 92.4 fl (80-100); Nucleated Red Blood Cells Absolute Auto 0.000 K/mm3 (0.0-0.012); Nucleated Red Blood Cells Perc 0.0 % (0.0-0.2); Platelet Count Result 244 k/mm3 (150-375); Red Blood Count 4.61 M/mm3 (4.2-5.4); White Blood Count 9.8 K/mm3 (4.5-10.0)
[2025-02-21 16:09] LABS: Alanine Aminotransferase 36 U/L (6-35); Albumin Level 4.4 g/dL (3.5-5.1); Alkaline Phosphatase 79 U/L (38-126); Anion Gap 13 mmol/L (4-12); Aspartate Amino Transferase 47 U/L (14-36); Bilirubin,Total 0.7 mg/dL (0.2-1.3); Blood Urea Nitrogen 9 mg/dL (7-17); Calcium 9.2 mg/dL (8.4-10.2); Carbon Dioxide 22 mmol/L (22-30); Chloride 103 mmol/L (98-107); Estimated Glomerular Filt Rate > 60; Glucose 140 mg/dL (65-110); Potassium 4.2 mmol/L (3.4-5.0); Sodium 138 mmol/L (137-145); Total Protein 7.4 g/dL (6.3-8.2)
[2025-02-21 16:38] LABS: MALB Creatinine Ratio 6.5 mg/g (0-30)
--- OUTSIDE RECORDS SUMMARY | 2025-02-21 18:16 | XMS_ITS | Clinical Summary ---
Author Organization [facility] Address [address] [place] [address] Phone Care Team Providers Care Business Systems Administrator Name Role Phone Unavailable Primary Care Provider [...] on file Legal Sex Female 8:34 AM [facility] Gender Identity Not on file Sexual Orientation [...] 12:01 AM CDT Height 157.5 cm (5' 2) 09/11/2016 12:01 AM CDT Body Mass Index 49.75 09/11/2016 12:01 AM CDT Plan of Treatment Not on file
--- OUTSIDE RECORDS SUMMARY | 2025-02-21 18:16 | XMS_ITS | Clinical Summary ---
Author Organization [facility] Address [address] [place] [address] Care Team Providers Care Assistant Manager Name Role Phone Suzanne Lovelace MD Primary Care Provider [phone] Source Comments [facility],non-owned Affiliates and Associated Physician Practices is amultiple site organization consisting of ambulatory clinics and hospital sitesin [place], [place], [place] and [place]. This disclosure is being madepursuant to the Care Everywhere program and may not contain all information available regarding this patient. Last updated 18.[facility] Allergies No known active allergies Social History [...] yrs (1 - 1-dose 75+ series) 2021 DEPRESSION SCREENING 05/05/2024 COVID-19 VACCINE ( - 2023-2 5 season) 2025 INFLUENZA VACCINE (#1) 2025 HEPATITIS B VACCINE Aged Out No [...] patient's age to complete this topic Insurance MANAGED MEDICARE ADV [facility] MANAGED MEDICARE ADV Care Teams Assistant Manager Relationship Specialty Start Date End Date Suzanne Lovelace MD [address] [facility] [address] [place] [address] PCP - General Family Medicine 12/04/16
--- OUTSIDE RECORDS SUMMARY | 2025-02-21 18:17 | XMS_ITS | Encounter Summary ---
Author Organization [facility] Care Team Providers Care Art Installer Name Role Phone Suzanne Lovelace MD Primary Care Provider + Marcelo Burnett MD Primary Care Provider [phone] Encounter Details Date Type Department Care Team (Latest Contact Info) Description 11/19/2015 Orders Only [facility] ProviderElfego MD [address] [place] [address] Social History Tobacco Use Types Packs/Day Years Used Date Smoking Tobacco: Never Assessed Comments Unknown Sex and Gender Information Value Date Recorded Sex Assigned at Not on file Legal Sex Female 5:57 AM [employer] Gender Identity Not on file Sexual Orientation [...] on filedocumented in this encounter Care Teams Art Installer Relationship Specialty Start Date End Date Suzanne Lovelace MD [address] [place] [address] PCP - General 06/02/14 01/12/23 Marcelo Burnett MD [address] [place] [place], [place] [id number] PCP - General Family Practice 01/13/23 documented as of this encounter
--- OUTSIDE RECORDS SUMMARY | 2025-02-21 18:17 | XMS_ITS | Patient Health Record ---
Author Organization [facility] Address [address] [facility] [address] [place] [address] Care Team Providers Care Shallot Cleaner Name Role Phone Lex BAPTISTE, Marcelo Primary Care Provider Nicolette Rucker Unavailable [phone] Allergies No Known Allergies Results Component Value Reference Range Notes UDT Reviewed date:08/18/2024 03:38:33 PM Interpretation: Performing Lab: Notes/Report: Amphetamine (AMP) N 0 - 1000 ng/ml Buprenorphine (BUP) N 0 - 10 ng/ml Oxazepam (BZO) P 0 - 300 ng/ml Cocaine (KORIN) N 0 - 300 ng/ml Methamphetamine (mAMP) N 0 - 300 ng/ml Methylenedioxymethamphetamine (MDMA) N 0 - 500 ng/ml Morphine (MOP) N 0 - 25 ng/ml Methadone (MTD) N 0 - 300 ng/ml Oxycodone (OXY) N 0 - 300 ng/ml THC N 0 - 50 ng/ml x N 0 - 1000 ng/ml x N 0 - 1000 ng/ml x N 0 - 300 ng/ml x N 0 - 300 ng/ml x N 0 - 300 ng/ml Reason For Referral No Information Medications Medication SIG (Take, Route, Frequency, Duration) Notes Start Date End Date Status LORazepam 1 MG Tablet 1 tablet Oral Once a day; Duration: 90 days As needed 02/16/2025 Active Sertraline HCl 50 MG Tablet 1 tablet Oral Once a day; Duration: 90 days 02/16/2025 Active Temazepam 30 MG Capsule 1 capsule at bedtime Oral Once a day; Duration: 90 days 02/16/2025 Active risperiDONE 1 MG Tablet 1 tablet Orally Once a day; Duration: 90 days 02/16/2025 Active Rosuvastatin Calcium 40 MG Tablet Oral 07/30/2023 Active metFORMIN HCl ER 500 MG Tablet Extended Release 24 Hour Oral 07/30/2023 Active Multivitamin Adults Tablet Oral 07/30/2023 Active Jardiance 10 MG Tablet Oral 07/30/2023 Active Allopurinol 100 MG Tablet Oral 07/30/2023 Active Valsartan 80 MG Tablet Oral 07/30/2023 Active Ozempic (2 MG/DOSE) 8 MG/3ML Solution Pen-injector Subcutaneous *Reorder from [employer] for eRx and Interaction Alerts* 07/30/2023 Active Vitamin B 12 Active CHOLECALCIFEROL (VIT D3) 1,000 UNIT-VITAMIN K2 (MK4) 100 MCG TABLET *Reorder from [employer] for eRx and Interaction Alerts* 07/30/2023 Active hydroCHLOROthiazide 12.5 MG Tablet Oral 07/30/2023 Active Social History Tobacco Use: Social History Observation Description Date Details (start date - stop date) Never Smoker NA - NA Sex Assigned At : Social History Observation Description Sex Assigned At Female Social History Miscellaneous: Social Info Question Answer Notes Safety issues: Do you feel safe at home? Yes Household: Social Info Question Answer Notes Household Marital status: Number of adults in household: 2 Drug/Alcohol: Social Info Question Answer Notes Drugs Have you used drugs other than those for medical reasons in the past 12 months? No AUDIT-C (Standard) Did you have a drink containing alcohol in the past year? No Points 0 Interpretation Negative Caffeine Intake: none Tobacco Use: Social Info Question Answer Notes Tobacco Control (Standard) Tobacco use: Nonsmoker Additional Details Category Social Info Options Details Miscellaneous: Occupation: retired Migrated Social History Migrated Social History Alcohol Intake: None 07/30/2023,Tobacco Years: Never smoker 07/30/2023 Section Notes: Social History Substance UseDo you [...] NoDo you have a medical power of commercial real estate attorney?: No Social History Substance UseDo you [...] NoDo you have a medical power of commercial real estate attorney?: No Social History Substance UseDo you [...] NoDo you have a medical power of commercial real estate attorney?: No Social History Substance UseDo you [...] NoDo you have a medical power of commercial real estate attorney?: No Social History Substance UseDo you [...] NoDo you have a medical power of commercial real estate attorney?: No Problems Problem Type SNOMED Code ICD Code Onset Dates Problem Status W/U Status Risk Notes Problem Bipolar II disorder (82213058) Bipolar II disorder (F31.81) Active confirmed Problem Generalized anxiety disorder (28044713) Generalized anxiety disorder (F41.1) Active confirmed Problem Chronic insomnia (739737356) Chronic insomnia (F51.04) Active confirmed Problem Falls (076785262) Falls (R29.6) Active confirmed Problem Long-term current use of drug therapy (815307095) director long term care prescription benzodiazepine use (Z79.899) Active confirmed Vital Signs Heart Rate 82 /min 02/16/2025 Height-cm 157.48 cm 02/16/2025 Blood pressure diastolic 78 mm Hg 02/16/2025 Weight-kg 101.61 kg 02/16/2025 Height 62.00 in 02/16/2025 Blood pressure systolic 118 mm Hg 02/16/2025 Weight 224 lbs 02/16/2025 BMI 40.97 kg/m2 02/16/2025 Encounters Encounter Location Date Provider Diagnosis [facility] [employer] [address] [facility] [address] [place] [address] 05/21/2024 Nicolette Graves Bipolar II disorder F31.81 and Chronic insomnia F51.04 [facility] [employer] [facility] [address] [facility] [address] [place] [address] 08/18/2024 Nicolette Graves Chronic insomnia F51.04 ; Encounter for screening for cardiovascular disorders Z13.6 ; Encounter for screening for depression Z13.31 and Bipolar II disorder F31.81 [facility] [employer] [facility] [address] [place] [address] 11/17/2024 Nicolette Graves Bipolar II disorder F31.81 ; Chronic insomnia F51.04 ; alf prescription benzodiazepine use Z79.899 and Falls R29.6 [facility] [employer] [facility] [address] [place] [address] 02/16/2025 Nicolette Graves Bipolar II disorder F31.81 ; Generalized anxiety disorder F41.1 ; Chronic insomnia F51.04 ; Falls R29.6 and director long term care prescription benzodiazepine use Z79.899 [facility] [employer] [facility] [address] [place] [address] 04/26/2024 Nicolette Graves Bipolar II disorder F31.81 [facility] [facility] [address] [place] [address] 08/19/2024 Nicolette Graves Bipolar II disorder F31.81 Assessments [...] delirium, and paradoxical reactions (e.g., agitation, aggression). 08/19/2024 Bipolar II disorder (ICD-10 - F31.81) 11/17/2024 Bipolar II disorder (ICD-10 - F31.81) 11/17/2024 Chronic insomnia (ICD-10 - F51.04) Long-Term Risks [...] delirium, and paradoxical reactions (e.g., agitation, aggression). 02/16/2025 Bipolar II disorder (ICD-10 - F31.81) 02/16/2025 Generalized anxiety disorder (ICD-10 - F41.1) 02/16/2025 Chronic insomnia (ICD-10 - F51.04) Long-Term Risks [...] delirium, and paradoxical reactions (e.g., agitation, aggression). 08/18/2024 Encounter for screening for cardiovascular disorders (ICD-10 - Z13.6) 11/17/2024 director long term care prescription benzodiazepine use (ICD-10 - Z79.899) 05/21/2024 Chronic insomnia (ICD-10 - F51.04) Bipolar [...] 08/18/2024 Bipolar II disorder (ICD-10 - F31.81) 11/17/2024 Falls (ICD-10 - R29.6) 08/18/2024 Encounter for screening for depression (ICD-10 - Z13.31) 02/16/2025 Falls (ICD-10 - R29.6) 02/16/2025 director long term care prescription benzodiazepine use (ICD-10 - Z79.899) 08/18/2024 Josseline Storm, a patient with a history of [...] Continue current weight management approach, including Contrave 11/17/2024 Other Patrick Storm, female, presents with a history of falls, sleep issues, and medication management for COPD, anxiety, and possible movement disorders. Falls Assessment: Patient reports two falls in the last 6 months, which is a new occurrence for her. The first fall resulted in hitting her head and nose while carrying groceries. The second fall occurred about 6 months ago while going to the bathroom, causing leg and shoulder injuries. Patient denies dizziness or confusion after falls but expresses concern about balance, describing feeling top-heavy and like she might fall forward. She has become more cautious, holding onto rails when getting up. Patient also mentions difficulty getting up independently after falling, needing to crawl to furniture for support. There is a history of others accusing her of shuffling her feet, which could indicate gait issues. Plan: - Assess gait and balance during next in-person visit - Educate on fall prevention strategies - Consider referral to physical therapy for gait and balance training Sleep Disturbance Assessment: Patient reports difficulty initiating sleep, taking an hour or more to fall asleep. Once asleep, she reports sleeping for 6-7 hours. Currently using temazepam 30 mg for sleep management. Plan: - Continue temazepam 30 mg at bedtime - Monitor efficacy and side effects of temazepam Anxiety Assessment: Patient reports anxiety is currently manageable. She is taking lorazepam and risperidone, with only a few pills remaining of each medication. Plan: - Continue lorazepam - Continue risperidone - Monitor for side effects, including sedation, weight gain, metabolic risks, and movement disorders - Follow up every 3 months due to controlled substance prescriptions COPD Assessment: Patient reports dyspnea on exertion, needing to sit down after walking long distances due to COPD. Plan: - Continue current COPD management - Encourage regular follow-ups with teacher resource Medication Management Assessment: Patient reports improvement in blood pressure and weight loss. Recent blood glucose levels have been under 6 mmol/L, with a previous HbA1c of 5.7%. Patient mentions a history of hand tremors and dizziness, which improved after reducing risperidone dosage as per Dr. Burnett's recommendation. Plan: - Continue sertraline - Refill risperidone, temazepam, and lorazepam - Monitor blood pressure, weight, and blood glucose levels - Assess for any persistent tremors or dizziness at follow-up visits 02/16/2025 Josseline Storm is a 79-year-old female with chronic knee pain currently managed with injections and psychiatric conditions treated with lorazepam, risperidone, and temazepam who reports recent falls but stable mood. Bipolar Disorder Assessment: Patient reports stable mood described as wonderful and expresses gratitude for time with her 82-year-old . She is currently taking lorazepam, risperidone, and temazepam with adequate supply. Plan: - Continue risperidone 1 mg daily - Monitor for side effects, including sedation, weight gain, metabolic risks, and movement disorders - Follow-up in approximately 3 months Insomnia Assessment: Patient reports some difficultly with sleep onset but maintaining 6-7 hours of sleep after falling asleep. Currently using temazepam 30 mg for sleep management, which she has been on chronically. Plan: - Continue temazepam 30 mg at bedtime - Monitor efficacy and side effects of temazepam - Discussed safety and long-term risks of benzodiazepine use Anxiety Assessment: Patient reports anxiety is currently manageable. She is taking lorazepam and risperidone, with lorazepam taken once a day as needed. She has been on this chronically. Plan: - Continue sertraline 50 mg daily - Continue lorazepam as needed - Discussed safety and long-term risks of benzodiazepine use Fall risk Assessment: Patient experienced two recent falls with injuries including right thigh and left shoulder pain from one fall, and forehead scratch and nose injury from another fall while carrying groceries. She acknowledges shuffling her feet and is now consciously trying to lift her feet with each step to prevent future falls. Plan: - No additional falls reported since implementing conscious foot lifting technique Chronic knee pain Assessment: Patient has chronic right knee pain currently managed with injections that are supposed to last 3 months but are wearing off after approximately 2.5 months. She has a history of left knee injections for nearly 20 years followed by knee surgery 15 years ago. She is reluctant to pursue another surgical intervention. Pain is managed with as-needed pain medications, which she prefers to use sparingly. Plan: - Follow-up appointment next month for repeat knee injection Medical Decision Making Patrick Storm is a 79-year-old female with a history of bilateral knee problems presenting for psychiatric follow-up with stable mood and medication management needs. The patient reports chronic right knee pain currently managed with injections that are wearing off after approximately 2.5 months rather than the expected 3-month duration, requiring supplemental pain medication as needed. Her history of left knee injections for nearly 20 years followed by eventual surgical intervention raises consideration for similar progression in the right knee, though the patient expresses preference to avoid surgery. Recent falls with associated injuries to thigh, shoulder, forehead, and nose were attributed to possible knee instability and shuffling gait pattern, though no subsequent falls have occurred since implementing conscious foot lifting technique. The patient's mood remains stable and she reports adequate supply of current psychiatric medications including lorazepam, risperidone, and temazepam, with insurance-relate d delays noted for controlled substances but no immediate concerns requiring medication adjustments. Plan Of Treatment Next Appt Details Provider Name:Nicolette pride, 05/18/2025 01:15:00 PM, [address] [facility] [address] [facility] [address], [place], [address], Insurance Providers Payer Name Payer Address Payer Phone Subscriber Number Group Number Insured Name Patient Relationship to Insured Coverage Start Date Coverage End Date [facility] Medicare Replacement/ Advantage - Hmo [address] [address] [place] [address] [id number] PATRICK STORM Self - patient is the insured [place] [address] [facility] [place] [address] [id number] PATRICK STORM Self - patient is the insured Medical (General) History Medical History History ICD Code Problems: Bipolar II disorder Chronic insomnia hypertension gout diabetes type II hyperlipidemia fatty liver Surgical History Surgery Date(Month/Year) Hysterectomy (79028) Cataract surgery (66696) Removal of gallbladder (02330) Colectomy (10188) eye surgery 10/06/2023
--- OUTSIDE RECORDS SUMMARY | 2025-02-21 18:17 | XMS_ITS | Clinical Summary ---
Author Organization [facility] Address [address] [place] [address] Care Team Providers Care Rehabilitation Liaison Name Role Phone Marcelo Burnett MD Primary Care Provider [phone] Allergies No known active allergies Medications allopurinol [...] mg total) by mouth daily Active vit O-G-irzkvc-zinc -lutein 226-90-0.8-5 mg capsule Take by mouth [...] complication Other nonrheumatic aortic valve disorders 2022 Surgical History Surgery Date Site/Laterality Comments HYSTERECTOMY CHOLECYSTECTOMY KNEE SURGERY SHOULDER SURGERY Medical History Medical History Date Comments Diabetes mellitus Hypertension Bipolar 1 disorder (HCC) CHF (congestive [...] on file Legal Sex 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
[2025-02-25 23:07] LABS: Summary Report (Summary) FINAL (.)
== END 2025-02-21 15:34 | disposition home or self-care (01) ==
LOC: ANHLAB 15:35
PROVIDERS: PCP Family Medicine; Visit Provider Family Medicine
DX: E53.8 Deficiency of other specified B group vitamins (principal); E11.65 Type 2 diabetes mellitus with hyperglycemia; I10 Essential (primary) hypertension; I35.8 Other nonrheumatic aortic valve disorders; E78.2 Mixed hyperlipidemia; E55.9 Vitamin D deficiency, unspecified; J44.9 Chronic obstructive pulmonary disease, unspecified; G47.33 Obstructive sleep apnea (adult) (pediatric); Z79.899 Other long term (current) drug therapy
CPT/HCPCS: 36415; 80053; 80307; 82043; 82172; 85025

== ENCOUNTER 2025-03-11 15:37 | Outpatient (CLI) | payer MEDICARE, SELFPAY ==
--- OUTSIDE RECORDS SUMMARY | 2004-04-13 02:45 | XMS_ITS | Continuity of Care Document ---
Author Organization [facility] Address [address] [address] [place] [address] Phone Care Team Providers Care Locker Room Manager Name Role Phone Marilin Fofana Unavailable Unavailable Advance Directives Directive Yes / No Effective Date File Name No Information Encounters Encounter Description Practice Location Reason(s) For Visit Diagnoses Date Provider Providers Copied on Encounter [facility], [address], [place], [place], [id number], [place] tel:[phone] [facility] No Information Dec-1 0-[address] , [address], [place], [address], [place]. tel:[phone] Family History Family Member Type Diagnosis Age At Onset No Information Payers Payer name Insurance type Covered constitution party ID Authoriza tion(s) No Information Social History Type Description Quantity Date Captured Comments Sex Female Smoking Status No Information Chief Complaint And Reason For Visit No Information Reason For Referral Reason For Referral No Information History Of Present Illness Encounter Date Complaint History Of Prese nt Illness No Information Functional Status Date Functional Assessmen t No Information Instructions Date Instruction Additional Infor mation No Information Assessments Type Assessment Date No Information Patient Care Teams Name Effective Dates (start - stop) Status Members No Information
--- OUTSIDE RECORDS SUMMARY | 2025-03-11 15:41 | XMS_ITS | Encounter Summary ---
Author Organization [facility] Facility Care Team Providers Care Telegraph Office Manager Name Role Phone Suzanne Lovelace MD Primary Care Provider + Marcelo Burnett MD Primary Care Provider [phone] Encounter Details Date Type Department Care Team (Latest Contact Info) Description 11/19/2015 Orders Only [facility] ProviderElfego MD [address] [place] [id number] Social History Tobacco Use Types Packs/Day Years Used Date Smoking Tobacco: Never Assessed Comments Unknown Sex and Gender Information Value Date Recorded Sex Assigned at Not on file 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
--- OUTSIDE RECORDS SUMMARY | 2025-03-11 15:41 | XMS_ITS | Clinical Summary ---
Author Organization [facility] Address [address] [place] [address] Phone Care Team Providers Care Inspector Welded Parts Name Role Phone Unavailable Primary Care Provider [...] on file Legal Sex Female 8:34 AM [facility] Gender Identity Not on file Sexual Orientation [...]
--- OUTSIDE RECORDS SUMMARY | 2025-03-11 15:41 | XMS_ITS | Data Portability ---
Author Organization [facility] Address [address] [place] [address] Care Team Providers Care Paratransit Operator Name Role Phone BREA ALSTON Primary Care Provider Assessment Encounter Date Assessment Date Assessment LastModified by Organization Details LastModified Time 12/29/2020 12/29/2020 everything seems to be healed ok to use ointment prn, f/u wwe Not available 12/29/2020 16:24:33 Plan of Treatment [...] further information , please contact me at [phone]. Thank you, CARMELINA Sneed 2020 [facility], [address] [facility], [facility] [address], [place], [address], 13:46:43 Procedures None recorded. Surgeries None recorded. Imaging None recorded. Medication Orders Diflucan 200 mg tablet 2020 [facility], [address] [address], [place], [place], [id number], 14:20:06 clobetasol 0.05 % topical ointment [address] [facility]60540, [address], [place], [id number], 14:19:57 Diflucan 200 mg tablet [address] [facility]24415, [address], [place], [id number], 14:20:06 nystatin-tr iamcinolone 100,000 unit/gram-0 .1 % topical ointment [address] [facility]81302, [address] [place], [place], [id number], 14:20:21 nystatin-tr iamcinolone 100,000 unit/gram-0 .1 % topical ointment [address] [facility]35572, [address] [place], [place], [id number], 14:20:21 nystatin-tr iamcinolone 100,000 unit/gram-0 .1 % topical ointment [address] [facility]37018, [address], [place], [id number], 14:20:21 Diflucan 150 mg tablet [address] [facility]37828, [address], [place], [id number], 11:17:12 Patient TargetsNo targets recorded. Patient InstructionsNo [...] require further information, please contact me at [phone]. Thank you, CARMELINA Sneed Referring Physician: Jennifer Ovalle, CPHT, Encounter Date: 04/26/2021 Results Created Date Observation Date Name Description Value Unit Range Abnormal Flag Note LastModifiedBy Organization Detail LastModifiedTime 12/19/19 21 12/18/2020 VAGIN ITIS/ VAGIN OSIS, DNA PROBE nusrat sp. detection, direct probe Positi ve negati ve abnormal Not Available [facility] (Lab) [address], [place], [address], 12/19/2020 19:11:19 12/19/19 21 12/18/2020 VAGIN ITIS/ VAGIN OSIS, DNA PROBE gardnerella vag. detection, direct probe Negati ve negati ve Not Available [facility] (Lab) [address] [place], [address], 12/19/2020 19:11:19 12/19/19 21 12/18/2020 VAGIN ITIS/ VAGIN OSIS, DNA PROBE trichomonas vag. detection, direct probe Negati ve negati ve Not Available [facility] (Lab) [address] [place], [address], 12/19/2020 19:11:19 02/01/20 21 01/31/2021 VAGIN ITIS/ VAGIN OSIS, DNA PROBE nusrat sp. detection, direct probe Positi ve negati ve abnormal Not Available [facility] (Lab) [address] [place], [address], 02/01/2021 22:02:49 02/01/20 21 01/31/2021 VAGIN ITIS/ VAGIN OSIS, DNA PROBE gardnerella vag. detection, direct probe Negati ve negati ve Not Available [facility] (Lab) [address] [facility], [place], [address], 02/01/2021 22:02:49 02/01/20 21 01/31/2021 VAGIN ITIS/ VAGIN OSIS, DNA PROBE trichomonas vag. detection, direct probe Negati ve negati ve Not Available [facility] (Lab) [address] [facility], [place], [address], 02/01/2021 22:02:49 04/26/20 21 04/26/2021 MOBIL UNCUS MULIE RIS/C URTIS LI, RT-PC R, ONE SWAB nm bkr mobiluncus mulieris and mobiluncus curtisii by RT-PCR Negati ve Swab- 1 Vag/C erv Not Available [facility] (Lab) [address] [facility], [place], [address], 05/07/2021 05:03:00 04/26/20 21 04/26/2021 BACTE RIAL VAGIN OSIS PANEL RT-PC R, ONESW AB gardnerella vaginalis PCR Negati ve Swab- 1 Vag/C erv Not Available [facility] (Lab) [address] [place], [address], 05/07/2021 05:03:01 04/26/20 21 04/26/2021 BACTE RIAL VAGIN OSIS PANEL RT-PC R, ONESW AB atopobium vaginae PCR Negati ve Swab- 1 Vag/C erv Not Available [facility] (Lab) [address] [facility], [place], [address], 05/07/2021 05:03:01 04/26/20 21 04/26/2021 BACTE RIAL VAGIN OSIS PANEL RT-PC R, ONESW AB bacterial vaginosis associated bacteria 2 (bvab2) Negati ve Swab- 1 Vag/C erv Not Available [facility] (Lab) [address] [place], [address], 05/07/2021 05:03:01 04/26/20 21 04/26/2021 BACTE RIAL VAGIN OSIS PANEL RT-PC R, ONESW AB megasphaera species (type 1 and type 2) PCR Negati ve (Type1 ,Type2 ) Swab- 1 Vag/C erv Type1 :Nega tive Type2 :Nega tive. Not Available [facility] (Lab) [address] [place], [address], 05/07/2021 05:03:01 04/26/20 21 04/26/2021 BACTE RIAL VAGIN OSIS PANEL RT-PC R, ONESW AB lactobacillu s (bvpanel) PCR See Commen t Swab- 1 Vag/C erv L.cri spatu s: Negat daniel L.reginaldo senii : Negat daniel L.gas seri : Posit daniel L.ine rs : Posit daniel. Not Available [facility] (Lab) [address] [place], [address], 05/07/2021 05:03:01 04/26/20 21 04/26/2021 UROGE NITAL MYCOP LASMA /UREA PLASM A PANEL RT-PC R, ONESW AB nm bkr mycoplasma genitalium by RT-PCR Negati ve Swab- 1 Vag/C erv Not Available [facility] (Lab) [address] [place], [address], 05/07/2021 05:03:01 04/26/20 21 04/26/2021 UROGE NITAL MYCOP LASMA /UREA PLASM A PANEL RT-PC R, ONESW AB nm bkr mycoplasma hominis by RT-PCR Negati ve Swab- 1 Vag/C erv Not Available [facility] (Lab) [address] [place], [address], 05/07/2021 05:03:01 04/26/20 21 04/26/2021 UROGE NITAL MYCOP LASMA /UREA PLASM A PANEL RT-PC R, ONESW AB nm bkr ureaplasma urealyticum by RT-PCR Negati ve Swab- 1 Vag/C erv Not Available [facility] (Lab) [address] [facility] [address], [place], [address], 05/07/2021 05:03:01 04/26/20 21 04/26/2021 YOON DA VAGIN ITIS PANEL RT-PC R, ONESW AB nusrat albicans PCR Negati ve Swab- 1 Vag/C erv Not Available [facility] (Lab) [address], [place], [address], 05/07/2021 05:03:02 04/26/20 21 04/26/2021 YOON DA VAGIN ITIS PANEL RT-PC R, ONESW AB nusrat tropicalis PCR Negati ve Swab- 1 Vag/C erv Not Available [facility] (Lab) [address], [place], [address], 05/07/2021 05:03:02 04/26/20 21 04/26/2021 YOON DA VAGIN ITIS PANEL RT-PC R, ONESW AB nusrat parapsilosis PCR Negati ve Swab- 1 Vag/C erv Not Available [facility] (Lab) [address] [facility], [place], [address], 05/07/2021 05:03:02 04/26/20 21 04/26/2021 YOON DA VAGIN ITIS PANEL RT-PC R, ONESW AB nusrat glabrata PCR Positi ve abnormal Swab- 1 Vag/C erv Not Available [facility] (Lab) [address], [place], [address], 05/07/2021 05:03:02 04/26/20 21 04/26/2021 YOON DA JONATHAN I BY RT-PC R nusrat krusei by RT-PCR Negati ve Swab- 1 Vag/C erv Not Available [facility] (Lab) [address], [place], [address], 05/07/2021 05:03:02 03/22/20 22 03/22/2022 MAMMO , asl mathur No observ ation record ed. [facility] [address], [place], [address], 05/20/2023 17:30:52 Result Notes None recorded. Problems Name Problem SNOMED Code Status Onset Date Resolution Date Notes Provider Name and Address Organization Details Recorded Time Screenin g for malignan t neoplasm of cervix Completed 201012/18/2020 Screening for malignant neoplasms of the cervix;Re corded Elsewhere : No Locati on: [facility] So urce: EHR Chron ic: N Practic e ID: [id number] Bill able Time: 02:00:00 PM [facility] 14:44:12 Vaginiti s and vulvovag initis Completed 201012/18/2020 Vaginitis ;Recorded Elsewhere : No Locati on: [facility] So urce: EHR Chron ic: N Practic e ID: [id number] Bill able Time: 02:00:00 PM [facility] 14:44:15 Adult health examinat ion Completed 201012/18/2020 Routine Medical Exam;[place] rded Elsewhere : No Locati on: [facility] So urce: EHR Chron ic: N Practic e ID: [id number] Bill able Time: 02:00:00 PM Bell Marsh [facility] 14:44:17 Screenin g for malignan t neoplasm of rectum Completed 201012/18/2020 Screening for malignant neoplasms of the rectum;Re corded Elsewhere : No Locati on: [facility] So urce: EHR Chron ic: N Practic e ID: 0001 Bill able Time: 02:00:00 PM [facility] 14:44:19 Speciali zed medical examinat ion Completed 201012/18/2020 Gynecolog ical Examinati on;Record ed Elsewhere : No Locati on: [facility] So urce: EHR Chron ic: N Practic e ID: 0001 Bill able Time: 02:00:00 PM Bell nix [facility] 14:44:[address] Concept Completed 201812/18/2020 Encntr for guide plant exam (general) (routine) w/o abn findings; Recorded Elsewhere : No Locati on: [facility] So urce: EHR Chron ic: N Practic e ID: [id number] Bill able Time: 10:30:00 AM Bell Marsh [facility] 14:44:21 Abscess of vulva [id number] Completed 201812/18/2020 Abscess of vulva;Rec orded Elsewhere : No Locati on: [facility] So urce: EHR Chron ic: N Practic e ID: [id number] Bill able Time: 10:30:00 AM Bell Marsh [facility] 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 14:44:37 Lichen simplex chronicu s [id number] Completed 201812/18/2020 Lichen simplex chronicus ;Recorded Elsewhere : No Locati on: [facility] So urce: EHR Chron ic: N Practic e ID: [id number] Bill able Time: 04:30:00 PM Bell Marsh [facility] 14:44:32 Problem Notes None recorded. Procedures Surgical History Date Name Laterality Status Provider Name and Address Organization Details Recorded Time 03/22/20 Date of Last Mammogram completed Aleyda [facility] 03/01/2024 14:21:29 02/19/20 20 Most Recent Bone Density completed [facility] 03/01/2024 14:21:33 05/05/19 13 Cholecystectomy completed [facility] 09/24/2019 17:16:09 05/05/19 13 procedure on shoulder completed [facility] 09/24/2019 17:16:31 05/14/19 12 completed [facility] 12/18/2020 14:49:15 02/08/20 11 Date of Last Pap Smear completed [facility] 12/18/2020 14:49:29 05/05/19 11 completed [facility] 12/18/2020 14:51:03 05/05/19 00 procedure on knee completed [facility] 09/24/2019 17:17:14 05/05/18 87 Total Hysterectomy completed [facility] 09/24/2019 17:15:14 05/05/18 77 Tubal Ligation completed [facility] 09/24/2019 17:14:52 Imaging Results None recorded. Procedure Notes None recorded. Medical Equipment None Reported. Allergies No known drug allergies Medications Name Sig Start Date Stop Date Status Note LastModified by Organization Details LastModified Time metformin 500 mg tablet take 1 tablet by oral route 2 times every day with morning and evening meals 12/18 completed Prescrib ed Elsewher e: Yes Loca tion: Celia mahmood [facility] odify By: butchose E ncounter DateTime : 03/08/20 10:30:00 AM Not Available Not Available Not [...] Prescrib ed Elsewher e: Yes Loca tion: [facility] odify By: danni fisher DateTime : [...] Prescrib ed Elsewher e: Yes Loca tion: [facility] odify By: richard blunt DateTime : 02/06/20 11 02:00:00 PM Not Available Not Available Not Available glimepiri de 2 mg tablet TAKE 1 TABLET BY MOUTH WITH BREAKFAS T AND 2 TABLETS WITH SUPPER DAILY 03/01 completed Not Available Not Available Not Available glimepiri de 1 mg tablet take 1 tablet by oral route every day 12/18 completed Prescrib ed Elsewher e: Yes Loca tion: [facility] odify By: danni fisher DateTime : 08/06/19 [...] Elsewher e: No Locat ion: Celia mahmood [facility] odify By: ganga blunt DateTime : 09/03/19 14 11:00:00 AM Not Available Not Available Not Available Cipro 500 mg tablet take 1 tablet by oral route every 12 hours 03/08 completed Prescrib ed Elsewher e: No Locat ion: Celia mahmood [facility] odify By: ganga maresjohn DateTime : 09/03/19 [...] Elsewher e: Yes Loca tion: Celia mahmood [facility] odify By: ganga maresjohn DateTime : 07/01/19 14 10:15:00 AM Not Available Not Available Not Available ketoconaz ole 2 % topical cream apply by topical route every day to the affected area(s) 03/08 completed Prescrib ed Elsewher e: No Locat ion: Celia mahmood [facility] odify By: ganga maresjohn DateTime : 09/03/19 14 11:00:00 AM Not Available Not Available Not Available Terazol 7 0.4 % vaginal cream insert 1 applicat orful by vaginal route every day for 7 days at bedtime 02/11 completed Prescrib ed Elsewher e: No Locat ion: [facility] odify By: [email or web address] tz Encou nter DateTime : 02/06/20 11 [...] Prescrib ed Elsewher e: No Locat ion: [facility] odify By: [email or web address] Encount er DateTime : 07/07/19 14 03:11:30 PM Not Available Not Available Not Available valsartan 40 mg tablet TAKE 2 TABLETS BY MOUTH DAILY 12/18 completed Not Available Not Available Not Available rosuvasta tin 10 mg tablet take 1 tablet by oral route every day 12/18 completed Prescrib ed Elsewher e: Yes Loca tion: [facility] odify By: ganga E ncounter DateTime : 03/08/20 19 10:30:00 AM Not Available Not Available Not Available rosuvasta tin 40 mg tablet TAKE 1 TABLET BY MOUTH DAILY active Not Available Not Available No t Available Riomet 500 mg/5 mL oral solution take 10 millilit er by oral route 2 times every day with meals 09/02 completed Prescrib ed Elsewher e: Yes Loca tion: [facility] odify By: danni fisher DateTime : 02/06/20 11 02:00:00 PM Not Available Not Available Not Available Spiriva with [employer] r 18 mcg and inhalatio n capsules inhale 1 capsule by inhalati on route every day 03/08 completed Prescrib ed Elsewher e: Yes Loca tion: Celia [facility] odify By: dmrose E ncounter DateTime : 10/07/19 13 02:45:00 PM Not Available Not Available Not Available Januvia 100 mg tablet take 1 tablet by oral route every day 06/16 completed Prescrib ed Elsewher e: Yes Loca tion: Celia mahmood [facility] odify By: [email or web address] z Encoun ter DateTime : 03/08/20 19 10:30:00 AM Not [...] Body mass index (BMI) Body weight Systolic And Diastolic Provider Name and Address Organization Details Last Updated DateTime 12/18/2020 157.48 cm 51.8 kg/m2 745919.64 g 137/82 mm[Hg] Bell Marsh [facility] 12/18/2020 16:46:23 Date Recorded Body height Body mass index (BMI) Body weight Systolic And Diastolic Provider Name and Address Organization Details Last Updated DateTime 12/29/2020 157.48 cm 51.8 kg/m2 591704.64 g 138/75 mm[Hg] Felisha Bonner [facility] 12/29/2020 16:09:32 Date Recorded Systolic And Diastolic Provider Name and Address Organization Details Last Updated DateTime 01/31/2021 163/80 mm[Hg] Jennifer Ovalle, [facility] [address], [place], [address], [facility] 01/31/2021 12:09:52 Date Recorded Body height Body mass index (BMI) Body weight Provider Name and Address Organization Details Last Updated DateTime 01/31/2021 157.48 cm 52.9 kg/m2 989560.19 g Eloina Butterfield [facility] 01/31/2021 11:41:54 Date Recorded Body height Body mass index (BMI) Body weight Systolic And Diastolic Provider Name and Address Organization Details Last Updated DateTime 03/01/2024 157.48 cm 41.9 kg/m2 815945.65 g 96/62 mm[Hg] Aleyda Gagnon [facility] 03/01/2024 14:19:40 Date Recorded Systolic And Diastolic Provider Name and Address Organization Details Last Updated DateTime 04/26/2021 132/70 mm[Hg] Jennifer Ovalle, [facility] [address], [place], [address], [facility] 04/26/2021 11:07:31 Date Recorded Body height Body mass index (BMI) Body weight Provider Name and Address Organization Details Last Updated DateTime 04/26/2021 157.48 cm 52.3 kg/m2 391247.42 g Eloina Butterfield [facility] 04/26/2021 10:57:21 Social History Question Answer Notes LastModified by Organizat ion Details LastModified Time Tobacco Smoking Status Never Smoker Felisha nix, [facility] 09/24/2019 17:13:58 Are You Blind Or Do You Have Difficulty Seeing? No [email or web address] Information not available 12/29/2020 Are You Deaf Or Do You Have Serious Difficulty Hearing? No [email or web address] Information not available 12/29/2020 What Type Of Diet Are You Following? REGULAR [email or web address] Information not available 12/29/2020 What Was The Date Of Your Most Recent Tobacco Screening? 12/29/2020 [email or web address] Information not available 12/29/2020 How Much Tobacco Do You Smoke? No [email or web address] Information not available 09/24/2019 Sex: Unknown Functional Status Question Answer Note LastModified by Organizat ion Details LastModified Time What is your level of alcohol consumption? Occasional [email or web address] Information not available 09/24/2019 Do you or have you ever used smokeless tobacco? Never used smokeless tobacco [email or web address] Information not available 09/24/2019 Are you able to walk independently without assistance or assistive devices? YESWOREST [email or web address] Information not available 12/29/2020 Do you or have you ever used e-cigarettes or vape? Never used electronic cigarettes Information not available 09/24/2019 What is your exercise level? Occasional [email or web address] Information not available 09/24/2019 Mental Status None recorded. Family History Relationship Description Onset Age of this Age Resolved Age Notes LastModified by Organization Details LastModified Time Sister Malignant neoplasm of colon [email or web address] Not available 09/23 17:12:51 Paternal Grandmother Malignant neoplasm of colon [email or web address] Not available 09/23 17:12:51 Father Myocardial infarction [email or web address] Not available 09/03 17:13:18 Maternal Grandmother Myocardial infarction [email or web address] Not available 09/03 17:13:18 Mother Heart disease Not available 09/23 17:13:31 Medical History Condition [...] Diagnosis SNOMED-CT Code Diagnosis ICD10 Code Diagnosis IMO Codes Diagnosis Note [id number] Patt Jean Scales, [facility] [address],[place] [address] 09/24/2019 15:54:58 09/28/2019 14:22:50 Candidiasis of skin 07436596 B37.2 x 1 week and then as needed Gynecologi c examination 61918415 Z01.419 [id number] Bernadette Morrell [facility] [address],[place] [address] 12/18/2020 16:40:06 12/19/2020 17:46:34 Candidiasis of skin 56053730 B37.2 Discussed use of mild soap like dove or ivory, cotton underwear w/out dye, hypoallerg enic detergent, wipe from front to back, avoid tub baths, keep perineum clean and dry, d/c use of baby wipes. Encouraged daily intake of yogurt or womens health probiotic. Internal and external affirm collected. Will treat for likely yeast. RTC in 1-2 weeks to re-evaluat e. [id number] Patt Scales [facility] [address],[place] [address] 12/29/2020 15:57:47 12/31/2020 16:28:59 Vaginitis 25917278 N76.0 73915 Jennifer Ovalle [facility] [address],[place] [address] 01/31/2021 11:28:42 01/31/2021 12:29:28 Vaginitis 16850997 N76.0 Issues with recurrent yeast infections likely [...] this patient s visit, including available hand advertising account manager upon arrive, temperatur e check and being asked a series of screening questions. All staff wore face coverings during this encounter, as well as provided additional cleaning and sanitizing of all surfaces, including countertop s, pens, chairs, door handles, light switches, etc, prior to and following the patient s visit. [id number] [facility] [address] [address] 04/26/2021 10:46:39 04/26/2021 13:05:50 Vaginitis 56594934 N76.0 Suspect yeast infection todayWe discussed increased risk of more frequent yeast infection with DM & postmenopa usal status also likely another contributi ng factor. Today, we will treat for yeast & referral to [facility] vulvar specialist placed.We discussed the use of the steroid ointment; this product needs to be used VERY Sparingly bc it can thin the skin out further & cause additional issues.Franklyn sturize with vegetable oil DAILY!!! Multiple times a day preferred. VCGs were previously discussed. Time spent in visit is a total of 15 mins with at least 50% of visit consisting of counseling and review of plan of care.Addit ional precaution kay measures were taken to minimize potential exposure to the Covid-19 virus during this patient s visit, including available hand advertising account manager upon arrive, temperatur e check and being asked a series of screening questions. All staff wore face coverings during this encounter, as well as provided additional cleaning and sanitizing of all surfaces, including countertop s, pens, chairs, door handles, light switches, etc, prior to and following the patient s visit. 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 Does not feel it effects her bowel habits or causes other issues.Pre fers to monitor. [id number] Raza Queen MD [facility] [address] [address] 03/01/2024 13:53:25 03/01/2024 15:04:37 Postcoital bleeding 50738509 N93.0 This patient is a 78-year-ol d [...] Recorded Advance Directives Directive None Recorded Payers Insurance Date Sequence Insurance Name Policy Number Policy Saldaña Covered Member ID Saldaña Member ID Guarantor Name 03/04/[address] [facility] (MEDICARE REPLACEMENT/A DVANTAGE - PPO) [id number] Melissa Ricci [id number] Melissa Ricci 03/01/2024 2 [place] Melissa Ricci [id number] Melissa Ricci Notes Date Note Type Note Provider Name and Address Organization Details Recorded Time 12/18/2020 text/html ROS as noted in the HPI Bumps 1 month ago on her labia. [place] like paper cuts. Itching and irritation. Bernadette nix, [facility] 01/02/2021 22:06:57 12/29/2020 text/html ROS as noted in the HPI f/u yeast infection diflucan and nystatin cream worked well, no pain no complaints Patt Scales, [place] [address], [place], [address], [facility] 12/29/2020 16:24:47 01/31/2021 text/html Vaginal/Vulvar ProblemReported by PatientHere today for recurrent yeast infection issues.Has DM2 & blood sugars being managed by [facility].Get's yeast infections more easily since HgbA1c is higher >6.5 but lower than 7.0Her sx's today are white thick d/c, itching & irritation mainly on outside of vulva.Not SAFeels this is happening at least once a month for the last 3mos-4mos.OTC treatment helps but it also makes her feel more irriated. Neg urinary sx'sNeg GI issuesNeg N/V/F/D/CNeg pelvic or abd painROS as noted in the [facility] Jennifer Ovalle [employer] [facility] [address], [place], [address], [facility] 01/31/2021 12:15:09 04/26/2021 text/html Vaginal/Vulvar ProblemReported by PatientHere today or recurrent vag yeast infection & [...] olive oil when I feel irritated down there.ROS as noted in the [facility] Jennifer Ovalle [facility] [address], [place], [address], [facility] 04/26/2021 13:02:45 03/01/2024 text/html Beer - Abnormal BleedingReported by Patient This patient is a 78-year-old female presents [...] observe. Raza Queen MD [address], [place], [address], [facility] 03/01/2024 14:58:46 OBGyn Episode Ob Episode Information Episode Created Date Number of Fetuses Patient Bloodtype Patient rh Status Prepregnancy Weight lbs Domestic Partner Domestic Partner Phone Father Name Dragline Engineer Status 09/24/19 20 1 CLOSED Fetus Data [...] Domestic Partner Domestic Partner Phone Father Name Dragline Engineer Status 09/24/19 20 1 CLOSED Fetus Data [...] Domestic Partner Domestic Partner Phone Father Name Dragline Engineer Status 09/24/19 20 1 CLOSED Fetus Data [...] Domestic Partner Domestic Partner Phone Father Name Dragline Engineer Status 09/24/19 20 1 CLOSED Fetus Data First Name Last Name Admitted to NICU Weight (g) Sex Living Outcome Pediatric Complications Fetus ID Race Codes Race Delivery Type , Spontane ous [id number] Michael Calculation Initial Michael Date Initial Exam [...]
--- OUTSIDE RECORDS SUMMARY | 2025-03-11 15:41 | XMS_ITS | Clinical Summary ---
Author Organization [address] Address [address] [place] [address] Care Team Providers Care Clinical Program Consultant Name Role Phone Marcelo Burnett MD Primary Care Provider [phone] Allergies No known active allergies Medications allopurinol [...] mg total) by mouth daily Active vit X-B-kfjolw-zinc -lutein 226-90-0.8-5 mg capsule Take by mouth [...] on of Vitamin B12 Deficiency Activ e terbinafine (LamiSIL) 250 mg tablet Take 1 tablet (250 mg total) by mouth daily 02/21/2025 Active Active Problems Problem Noted Date Diagnosed Date Morbid obesity 07/29/2023 Morbid obesity with BMI of 40.0-44.9, adult 04/04 Hypertension associated with diabetes 04/15/2023 Hyperlipidemia associated with type 2 diabetes m ellitus 04/15/2023 Type 2 diabetes mellitus without complication Other nonrheumatic aortic valve disorders 2022 Encounters Date Type Department Care Team Description 03/08/2025 1:30 PM 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 Office Visit [facility] Cardiology at [address] [place] [address] Tyler Mcclure MD Hyperlipidemia associated with type 2 diabetes mellitus (HCC) (Primary Dx); Hypertension associated with diabetes (HCC); Other nonrheumatic aortic valve disorders; Morbid obesity with BMI of 40.0-44.9, adult (HCC); Morbid obesity (HCC) from Last 3 Months [...] on file Legal Sex Female 5:57 AM 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 Gender Identity Not on file Sexual Orientation Not on file Last Filed Vital Signs Vital Sign Reading Time Taken Comments Blood Pressure 126/64 03/08/2025 1:15 PM 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 Pulse 89 03/08/2025 1:15 PM 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 Temperature - - Respiratory Rate - - Oxygen Saturation 93% 03/08/2025 1:15 PM 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 Inhaled Oxygen Concentration - - Weight 102.5 kg (226 lb) 03/08/2025 1:15 PM 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 Height 158.8 cm (5' 2.5) 03/08/2025 1:15 PM 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 Body Mass Index 40.68 03/08/2025 1:15 PM 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 Plan of Treatment Health Maintenance Due Date [...] Most Recently Relevant to Health Maintenance Insurance [facility] MEDICARE AD[facility]ANTAGE [facility] Address[id number] [place] [address] Care Teams Clinical Program Consultant Relationship Specialty Start Date End Date Marcelo Burnett MD PCP - General Family Practice 01/13/23
--- OUTSIDE RECORDS SUMMARY | 2025-03-11 15:41 | XMS_ITS | Clinical Summary ---
Author Organization [facility] [employer] Address [address] [place] [address] Care Team Providers Care Sign Hanger Supervisor Name Role Phone Suzanne Lovelace MD Primary Care Provider [phone] Source Comments [facility] [employer],non-owned Affiliates and Associated Physician Practices is amultiple site organization consisting of ambulatory clinics and hospital sitesin [place], [place], [place] and [place]. This disclosure is being madepursuant to the Care Everywhere program and may not contain all information available regarding this patient. Last updated 18.[facility] [employer] Allergies No known active allergies Social History [...] complete this topic Insurance MANAGED MEDICARE ADV [facility] MANAGED MEDICARE ADV Care Teams Sign Hanger Supervisor Relationship Specialty Start Date End Date Suzanne Lovelace MD [address] [facility] [address] [place] [address] PCP - General Family Medicine 12/04/16
[2025-03-11 16:20] LABS: Alanine Aminotransferase 36 U/L (6-35); Albumin Level 4.6 g/dL (3.5-5.1); Alkaline Phosphatase 64 U/L (38-126); Aspartate Amino Transferase 50 U/L (14-36); Bilirubin,Total 0.9 mg/dL (0.2-1.3); Total Protein 7.6 g/dL (6.3-8.2)
== END 2025-03-11 15:38 | disposition home or self-care (01) ==
PROVIDERS: PCP Family Medicine; Visit Provider Family Medicine
DX: R74.01 Elevation of levels of liver transaminase levels (principal)
CPT/HCPCS: 36415; 80076